=== PATIENT | female | born 1955 | race Caucasian/White ===

== ENCOUNTER 2023-05-05 13:09 | Outpatient (OUT) | payer MEDICARE, OTHER, SELFPAY ==
--- NOTE | 2023-05-05 13:11 | MM_ITS ---
Patient Name: CHRISTY RICHTER MR#: [id number] : 1955 Exam Date: 05/05/2023 Ordering Doctor: DR Akash Buchanan . RADIOLOGY REPORT PROCEDURE: MM TOMOSYNTHESIS SCREENING BI COMPARISON: MG MAMM SCREEN TONY W CAD, 12/18/2016. MG MAMM SCREEN TONY W CAD, 07/31/2020. INDICATIONS: screening Calculator Name NCI Breast Cancer Risk Assessment Tool 5 Year Breast Cancer Risk Not Reported. Lifetime Breast Cancer Risk Not Reported. Personal Breast Cancer No Personal Ovarian Cancer No Treatments None Family Cancers None LOCATION: [facility] BREAST COMPOSITION: Scattered areas fibroglandular density. FINDINGS: DIAGNOSTIC CATEGORY 2--BENIGN FINDING. NO CHANGE FROM COMPARISON. Scattered benign-appearing calcifications are present. Scattered benign-appearing lymph nodes are present. RIGHT BREAST: No significant suspicious finding. LEFT BREAST: No significant suspicious finding. Micro clip marker upper outer quadrant, anterior breast, stable RECOMMENDATIONS: ROUTINE MAMMOGRAM AND CLINICAL EVALUATION IN 12 MONTHS. PLEASE NOTE: A NORMAL MAMMOGRAM DOES NOT EXCLUDE THE POSSIBILITY OF BREAST CANCER. A CLINICALLY SUSPICIOUS PALPABLE LUMP SHOULD BE BIOPSIED. Dictated by: Anselmo Vazquez MD on 05/18/2023 at 14:19 Approved by: Anselmo Vazquez MD on 05/18/2023 at 14:20
== END 2023-05-05 13:10 | disposition home or self-care (01) ==
LOC: MAMMO 13:09
PROVIDERS: PCP Family Medicine; Visit Provider Family Medicine
DX: Z12.31 Encounter for screening mammogram for malignant neoplasm of breast (principal)
CPT/HCPCS: 77063; 77067

== ENCOUNTER 2023-08-14 09:00 | Outpatient (OUT) | payer MEDICARE, OTHER, SELFPAY ==
--- OUTSIDE RECORDS SUMMARY | 2023-08-14 09:17 | XMS_ITS | CCD ---
Author Organization [facility] Care Team Providers Care Leaf Stripper Name Role Phone Re Curtis Primary Care Provider Re Curtis Attending Provider Marilee Choe Unavailable DR RE CURTIS Admitting Unavailable EVER, DR GRIMALDO Primary Care Unavailable EVER, DR GRIMALDO Consulting Unavailable DEBRAY, DR GRIMALDO Attending Unavailable WEST, DR LYNNETTE Chicas Consulting Unavailable EVER, DR GRIMALDO Attending Unavailable EVER, DR GRIMALDO Admitting Unavailable EVER, DR GRIMALDO Primary Care Unavailable EVER, DR GRIMALDO Consulting Unavailable WEST, DR LYNNETTE Chicas Consulting Unavailable EVER, DR GRIMALDO Attending Unavailable HOY, DR GRIMALDO Admitting Unavailable EVER, DR GRIMALDO Primary Care Unavailable EVER, DR GRIMALDO Consulting Unavailable XAVI, DR LEATHA Gonzalez Consulting Unavailable Unavailable Unavailable Unavailable Allergies Allergy Classification Reported Allergen(s) Allergy Type Date of Onset Reaction(s) Facility (1 source) Lisinopril Drug Allergy Unknown [facility] Other Medications Current Medications Medication Drug Class(es) Dates Sig (Normalized) Sig (Original) carvedilol (1 source) alpha-Adrenergic Farshad, beta-Adrenergic Farshad Carvedilol Activ e Problems Active Problems Problem Classification Problem Date Documented Date Episodic/Chronic Abdominal pain (4 sources) Right upper quadrant pain; Translations: [RIGHT UPPER QUADRANT PAIN] Onset: 02-10-2022 Episodic Biliary tract disease (1 source) Obstruction of bile duct; Translations: [OBSTRUCTION OF BILE DUCT] Onset: 02-16-2022 Chronic Diverticulosis and diverticulitis (1 source) Diverticulosis of intestine, part unspecified, without perforation or abscess without bleeding; Translations: [DVRTCLOS PRT UNS NO PERF/ABSC NO BL] Onset: 02-16-2022 Chronic Essential hypertension (1 source) Elevated blood pressure; Translations: [Essential (primary) hypertension] Chronic Hepatitis (1 source) Chronic hepatitis C; Translations: [Chronic viral hepatitis C] Chronic Joint disorders and dislocations; trauma-related (4 sources) Unspecified internal derangement of unspecified knee; Translations: [UNS INTERNAL DERANGEMENT UNS KNEE] Onset: 10-15-2021 Chronic Other nutritional; endocrine; and metabolic disorders (2 sources) Body mass index 25-29 - overweight; Translations: [Body mass index (BMI) 26.0-26.9, adult] Episodic Unclassified (1 source) Past or Other Problems Problem Classification Problem Date Documented Da te Episodic/Chronic Other bone disease and musculoskeletal deformities (1 source) Disorder of bone, unspecified; Translations: [DISORDER OF BONE UNSPECIFIED] Onset: 10-15-2021 Episodic Unclassified (1 source) Exposure to COVID-19 virus Z20.822 Onset: 11-22-2021 Resolved: 11-22-2021 Results Test Name Value Interpretation Reference Range Facility Physician Referralon 024 Physician Referral [id number] #[id number] Normal [facility] CBC AUTO DIFFon 02-10-2022 BASO # 0.0 103/ul Normal 0.0-0.1 [facility] Comment on above: Performed By: #### C BC #### [facility] [address] [place] [address] Dr. Martha Spain Basophils/100 WBC (Bld) 0.3 % Normal 0.2-2.0 [facility] Comment on above: Performed By: #### C BC #### [facility] [address] [address] [address] Martha Spain EO # 0.1 103/ul Normal 0.0-0.7 [facility] Comment on above: Performed By: #### C BC #### [facility] [address] [address] [address] Martha Spain Eosinophils/100 WBC (Bld) 1.1 % Normal 0.9-7.0 [facility] Comment on above: Performed By: #### C BC #### [facility] [address] [address] [address] Martha Spain Erythrocyte distribution width (RBC) [Ratio] 12.8 % Normal 11.0-15.0 [facility] Comment on above: Performed By: #### C BC #### [facility] [address] [place] [address] Dr. Martha Spain Hematocrit (Bld) [Volume fraction] 41.2 % Normal 36.0-48.0 [facility] Comment on above: Performed By: #### C BC #### [facility] [address] [place] [address] Dr. Martha Spain Hemoglobin (Bld) [Mass/Vol] 13.5 g/dL Normal 12.0-16.[address] [facility] Comment on above: Performed By: #### C BC #### [facility] [address] [place] [address] Dr. Martha Spain IG # 0.02 10e3/ul Normal 0.00-0.03 [facility] Comment on above: Performed By: #### C BC #### [facility] [address] [place] [address] Dr. Martha Spain IG % 0.3 % Normal 0.0-0.5 [facility] Comment on above: Performed By: #### C BC #### [facility] [address] [place] [address] Dr. Martha Spain LYMPH # 1.6 103/ul Normal 1.2-3.8 [facility] Comment on above: Performed By: #### C BC #### [facility] [address] [place] [address] Dr. Martha Spain Lymphocytes/100 WBC (Bld) 24.3 % Normal 20.5-60.[address] [facility] Comment on above: Performed By: #### C BC #### [facility] [address] [place] [address] Dr. Martha Spain MANUAL DIFF REQ NO Normal [facility] Comment on above: Performed By: #### C BC #### [facility] [address] [place] [address] Dr. Martha Spain MCH (RBC) [Entitic mass] 29.3 pg Normal 26.7-34.0 [facility] Comment on above: Performed By: #### C BC #### [facility] [address] [place] [address] Dr. Martha Spain MCHC (RBC) [Mass/Vol] 32.8 g/dL Normal 29.9-35.2 [facility] Comment on above: Performed By: #### C BC #### [facility] [address] [place] [address] Dr. Martha Spain MCV (RBC) [Entitic vol] 89.6 fL Normal 81.0-99.[address] [facility] Comment on above: Performed By: #### C BC #### [facility] [address] [place] [address] Dr. Martha Spain MONO # 0.5 103/ul Normal 0.3-0.[address] [facility] Comment on above: Performed By: #### C BC #### [facility] [address] [place] [address] Dr. Martha Spain Monocytes/100 WBC (Bld) 7.4 % Normal 1.7-12.0 [facility] Comment on above: Performed By: #### C BC #### [facility] [address] [place] [address] Dr. Martha Spain NEUT # 4.4 103/ul Normal 1.4-6.[address] [facility] Comment on above: Performed By: #### C BC #### [facility] [address] [place] [address] Dr. Martha Spain Neutrophils/100 WBC (Bld) 66.6 % Normal 43.0-75.[address] [facility] Comment on above: Performed By: #### C BC #### [facility] [address] [place] [address] Dr. Martha Spain Platelet mean volume (Bld) [Entitic vol] 10.8 fL Normal 9.5-13.[address] [facility] Comment on above: Performed By: #### C BC #### [facility] [address] [place] [address] Dr. Martha Spain PLT 158 103/ul Normal 150-450 [facility] Comment on above: Performed By: #### C BC #### [facility] [address] [place], [place] [address] Dr. Martha Spain RBC 4.60 106/ul Normal 4.20-5.40 [facility] Comment on above: Performed By: #### C BC #### [facility] [address] [place], [place] [address] Dr. Martha Spain WBC 6.7 103/ul Normal 4.0-11.0 [facility] Comment on above: Performed By: #### C BC #### [facility] [address] [place], [place] [address] ABD/PELV W CONon 02-11-20 CT ABD/PELV W CON EXAMINATION: CT ABD/PELV W CON, 02/10/2022 8:58 AM EDT HISTORY: Right upper quadrant pain COMPARISON: None. TECHNIQUE: CT scan of the abdomen and pelvis was performed with IV contrast. CT dose reduction technique was used, including Automated Exposure Control. FINDINGS: LUNG BASES: 5 mm nodule left lower lobe axial image 3 LIVER: Diffuse hypoattenuation consistent with hepatic steatosis BILIARY: No dilatation or calcification. PANCREAS: No lesion, fluid collection, ductal dilatation, or atrophy. SPLEEN: No enlargement or focal lesion. ADRENALS: No mass or enlargement. KIDNEYS: No mass, obstruction, or calcification. BOWEL/MESENTERY: Moderate colonic diverticulosis without evidence of acute diverticulitis. Nonobstructive bowel gas pattern. AORTA/VASCULAR: No aortic aneurysm. Mild atherosclerosis RETROPERITONEUM: No mass or adenopathy. LYMPH NODES: No adenopathy. URINARY BLADDER: No visible focal wall thickening, lesion, or calculus. PELVIC ORGANS: No visible mass. Pelvic organs appropriate for patient age. ABDOMINAL WALL: No mass or hernia. BONES: No bony lesion or fracture. OTHER: Negative. IMPRESSION: Diffuse hepatic steatosis No acute intraperitoneal abnormality Moderate colonic diverticulosis without evidence of acute diverticulitis Electronically authenticated by: LYNNETTE LEGGETT Date: 2022-02-10 11:03 Normal [facility] PROF 14(COMP METB)on 022 Albumin [Mass/Vol] 4.0 g/dL Normal 3.4-5.0 [facility] Comment on above: Performed By: #### C MP #### [facility] [address] [address] [address] Martha Spain Albumin/Globulin [Mass ratio] 1.1 {ratio} Normal [facility] Comment on above: Performed By: #### C MP #### [facility] [address] [place] [address] Dr. Martha Spain ALP [Catalytic activity/Vol] 87 U/L Normal 46-116 [facility] Comment on above: Performed By: #### C MP #### [facility] [address] [place] [address] Dr. Martha Spain ALT [Catalytic activity/Vol] 44 U/L Normal 14-59 [facility] Comment on above: Performed By: #### C MP #### [facility] [address] [place] [address] Dr. Martha Spain Anion gap [Moles/Vol] 9.5 mmol/L Normal [facility] Comment on above: Performed By: #### C MP #### [facility] [address] [place] [address] Dr. Martha Spain AST [Catalytic activity/Vol] 30 U/L Normal 15-37 [facility] Comment on above: Performed By: #### C MP #### [facility] [address] [place] [address] Dr. Martha Spain Bilirubin [Mass/Vol] 0.7 mg/dL Normal 0.2-1.0 [facility] Comment on above: Performed By: #### C MP #### [facility] [address] [place] [address] Dr. Martha Spain Calcium [Mass/Vol] 9.2 mg/dL Normal 8.5-10.1 [facility] Comment on above: Performed By: #### C MP #### [facility] [address] [place] [address] Dr. Martha Spain Chloride [Moles/Vol] 101 mmol/L Normal 98-[address] [facility] Comment on above: Performed By: #### C MP #### [facility] [address] [address] [address] Martha Spain CO2 [Moles/Vol] 31.1 mmol/L Normal 21.0-32.0 [facility] Comment on above: Performed By: #### C MP #### [facility] [address] [address] [address] Martha Spain Creatinine [Mass/Vol] 0.84 mg/dL Normal 0.55-1.02 [facility] Comment on above: Performed By: #### C MP #### [facility] [address] [address] [address] Martha Spain EGFR-AF GRENADIAN >60 Normal >=60 [facility] Comment on above: Performed By: #### C MP #### [facility] [address] [place] [address] Dr. Martha Spain EGFR-NON AF GRENADIAN >60 Normal >=60 [facility] Comment on above: Performed By: #### C MP #### [facility] [address] [address] [address] Martha Spain Globulin (S) [Mass/Vol] 3.8 g/dL Normal [facility] Comment on above: Performed By: #### C MP #### [facility] [address] [place] [address] Dr. Martha Spain Glucose [Mass/Vol] 110 mg/dL Critically high 74-[address] [facility] Comment on above: Performed By: #### C MP #### [facility] [address] [place] [address] Dr. Martha Spain Potassium [Moles/Vol] 4.6 mmol/L Normal 3.5-5.1 [facility] Comment on above: Performed By: #### C MP #### [facility] [address] [place] [address] Dr. Martha Spain Protein [Mass/Vol] 7.8 g/dL Normal 6.4-8.2 [facility] Comment on above: Performed By: #### C MP #### [facility] [address] [place] [address] Dr. Martha Spain Sodium [Moles/Vol] 137 mmol/L Normal 136-145 [facility] Comment on above: Performed By: #### C MP #### [facility] [address] [place], [place] [address] Dr. Martha Spain Urea nitrogen [Mass/Vol] 14.0 mg/dL Normal 7.0-18.0 [facility] Comment on above: Performed By: #### C MP #### [facility] [address] [place], [place] [address] Dr. Martha Spain Urea nitrogen/Creatinin e [Mass ratio] 16.7 mg/mg Normal [facility] Comment on above: Performed By: #### C MP #### [facility] [address] [place], [place] [address] Dr. Martha Spain COVID Quick Testingon 11-22 Result Negative [facility] Other MRI KNEE LT WO CONon MRI KNEE LT WO CON EXAMINATION: MRI KNEE LT WO CON HISTORY: Derangement of knee COMPARISON: No relevant comparison available. TECHNIQUE: A complete multi-planar MRI was performed. FINDINGS: MEDIAL COMPARTMENT MEDIAL MENISCUS: Thinned and partially extruded body and anterior horn. Diffuse increase in signal likely myxoid degeneration without definitive tear CARTILAGE: Diffuse grade 3 and grade 4 chondromalacia with subchondral edema. 4.2 mm osteochondral defect in the medial femoral condyle best seen on coronal image 16 BONES: Mild osteoarthritis with marginal osteophyte formation MCL AND MEDIAL CAPSULE: Normal medial collateral ligament and medial capsule. LATERAL COMPARTMENT LATERAL MENISCUS: No visible tear or significant degeneration. CARTILAGE: No visible defect. BONES: No marrow pathology, fracture, or significant arthropathy. LCL/POSTEROLAT COMPLEX: Normal lateral collateral ligament, fascicles, lateral capsule and ligaments. ANTERIOR COMPARTMENT PATELLA: No acute fracture CARTILAGE: Grade III chondromalacia of the lateral patellar facet with associated subchondral edema TENDONS: Normal. EFFUSION: None. No synovitis or loose bodies. ACL: Increased signal in the distal tibial insertion suggesting strain with some mild associated bone edema PCL: Normal appearing ligament. MENISCOFEMORAL: Normal meniscofemoral ligaments. OTHER: Negative. 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 Electronically authenticated by: LYNNETTE LEGGETT Date: 2021-10-15 10:38 Normal [facility] MM screening mammo BI w/CADo n 07-31-2020 MM screening mammo BI w/CAD [facility] [place] [address] [place] [id number] Mammography Report Signed Patient: Reva Richter MR#: [id number] : 1955 Acct:[id number] Age/Sex: 65 / F ADM Date: 07/31/20 Loc: [place] Room: Type: [facility] Attending Dr: Re Curtis MD Ordering Provider: Re Curtis MD Date of Service: 07/31/20 MM/MM screening mammo BI w/CAD: SCREENING Copies to: Re Curtis MD Bilateral Screening Full Field digital mammogram with 3-D imaging. Full field digital CC and MLO imaging performed. CAD utilized. COMPARISON: 12/18/16 HISTORY:Screening FINDINGS: Scattered fibroglandular densities of the breast parenchyma identified. No developing architectural distortion, developing focal breast asymmetry or developing malignant calcifications identified. Scattered benign calcifications identified. LEFT Biopsy marking clip is present. MM/MM screening mammo BI w/CAD IMPRESSION:No mammographic evidence of malignancy. Routine follow-up recommended in one year. RESULT CODE: 2 Benign Findings(s) DENSITY CODE: 2 (approximately 25-50% glandular) FOLLOW UP: 1YR THE FALSE-NEGATIVE RATE OF MAMMOGRAPHY IS APPROXIMATELY 10%. IMAGING OF A PALPABLE ABNORMALITY MUST BE BASED ON CLINICAL GROUNDS. PATIENT WAS ENTERED INTO A REMINDER SYSTEM WITH A TARGET DUE DATE FOR THE NEXT MAMMOGRAM. Impression dictated by: Varghese Copeland M.D.07/31/2020 12:01 PM Dictation Location: [facility] Transcribed By: [facility] 07/31/20 1201 Dictated By: Varghese Copeland DO 07/31/20 1157 Signed By: 07/31/20 1201 [facility] Vital Signs Date Time Vital Sign Value Performing Clinician Facility 11-22-2021 10:35-0400 Body height 165.1 cm [facility] Other [facility] Other 11-22-2021 10:35-0400 Body mass index (BMI) [Ratio] 25.79 kg/m2 Marilee Choe Other [facility] Other 11-22-2021 10:35-0400 Body temperature 96 [degF] Marilee Choe Other [facility] Other 11-22-2021 10:35-0400 Body weight 70.31 kg Marilee Choe Other [facility] Other 11-22-2021 10:35-0400 Respiratory rate 18 /min Marilee Choe Other [facility] Other 11-22-2021 10:35-0400 SaO2% (BldA) [Mass fraction] 97 % Marilee Choe Other [facility] Other Encounters Encounter Date Encounter Type Care Provider Facility Start: 02-10-2022 End: 02-11-[address] RE CURTIS Facility:[facility] Start: 11-22-2021 End: 11-22-2021 ambulatory Marilee Choe Other [facility] Other Start: 11-22-2021 Office outpatient ne w 20 minutes Marilee Choe [facility] Start: 10-15-2021 End: 10-16-[address] RE CURTIS Facility:[facility] Start: 10-10-2021 End: 10-11-[address] RE CURTIS Facility:[facility] Start: 07-31-2020 End: 07-31-2020 Patient encounter procedure Re Curtis -[place] Procedures Date Procedure Procedure Detail Performing Clinician Start: 07-31-2020 Screening mammograph y of bilateral breasts Re Curtis Immunizations Immunization Date Immunization Notes Care Provider Mike donaldson 06-19-2016 hepatitis B vaccine, adult dosage Marilee Choe Other [facility] Other 06-11-2016 hepatitis A vaccine, pediatric/adolescent dosage, 2 dose schedule Marilee Choe Other [facility] Other Payers Date Payer Category Payer Medicare [id number] 2.1 [id number] 1959 Medicare [id number] 1955 Unknown [id number] 1955 Unknown [id number] [id number] [id number] 1955 Unknown [id number] [id number] Self-pay Self Pay [id number] Unknown Self Pay [id number] Social History Date Type Detail Facility Tobacco smoking status NHIS Unknown if ever smoked [facility] Start: 1955 Sex Assigned At Female [facility] Sex Assigned At Sex Assigned At Bir th [facility] Other Goals Date Patient Goal Desired Activity /State Evaluation note 11-22-2021 Note Date & Type Note Facility 11-22-2021 Evaluation note Encounter Date Diagnosis Assessment Notes Nov, Exposure to COVID-19 virus (ICD-10 - Z20.822) Rapid COVID test results are negative. Patient is vaccinated for COVID19. Patient should follow up if new/worsening symptoms for further eval and possible re-testing. Advised patient to seek immediate evaluation via ER if warning symptoms, including but not limited to intracable fevers, s/s of respir distress, s/s of dehydration or severe abdominal pain. [facility] Other Clinical Note 06-23-2022 Note Date & Type Note Facility 10-10-2021 Note PROCEDURE: XR KNEE L T 4V or > HISTORY: Derangement of knee ; chronic lateral in posterior left knee pain since falling 5 months ago COMPARISON: None. FINDINGS: BONES:Serpiginous sclerotic density within the distal femoral diaphysis suspected to represent an enchondroma. Small sclerotic focus adjacent the weightbearing articular surface of the medial femoral condyle, possible osteochondral defect. No fracture or dislocation. SOFT TISSUES:No visible soft tissue swelling. EFFUSION:None visible. OTHER: Negative. IMPRESSION: 1. No acute bone abnormality. 2. Suspect small osteochondral defect involving weightbearing articular surface of medial femoral condyle. Consider MRI for further evaluation. 3. Nonspecific sclerotic lesion within distal femoral diaphysis most likely an incidental enchondroma. Electronically authenticated by: LEATHA HURLEY Date: 2021-10-10 11:[address] [facility] History general Narrative - Reported Note Date & Type Note Facility History general Narrative - Reported Type Medical History Hepatitis C from [place] blood transfusion Medical History Hypertension Surgical History cyst right hand-calcium deposit 1984 Hospitalization History see above [facility] Other Advance Directives No Advanced Directives Records Found Advance Directive Response Recorded Date/ Time Advance Directives No December 12:21pm Chief Complaint and Reason for Visit Chief Complaint Screening Assessments No Assessments Information Available Summary Purpose Family History No Family History Records FoundNo Family History Records FoundNo Family History Records Found Additional Source Comments INFORMATION SOURCE (unrecogn ized section and content) DATE CREATED AUTHOR 08/11/2020 [facility] DATE CREATED AUTHOR AUTHOR'S ORGANIZ ATION 02/16/2022 [facility] DATE CREATED AUTHOR AUTHOR'S ORGANIZ ATION 08/10/2023 [facility] REASON FOR VISIT (unrecogniz ed section and content) NANDO VAZQUEZ, H/Harris, MICKY EXPSO URE FOR RECORDS PERTAINING TO PATIENTS WHO ARE OR HAVE BEEN ENROLLED IN A CHEMICAL DEPENDENCY/SUBSTANCEABUSE PROGRAM, SOME INFORMATION MAY BE OMITTED. This clinical summary was aggregated from multiple sources. Caution should be exercised in using it in the provision of clinical care. This summary normalizes information from multiple sources, and as a consequence, information in this document may materially change the coding, format and clinical context of patient data. In addition, data may be omitted in some cases. CLINICAL DECISIONS SHOULD BE BASED ON THE PRIMARY CLINICAL RECORDS. [facility] [employer] [facility]. provides no warranty or guarantee of the accuracy or completeness of information in this document."
[2023-08-14 09:27] LABS: Basophils Percent Auto 0.2 % (0.2-2.0); Eosinophils Absolute Auto 0.1 10^3/uL (0.0-0.7); Eosinophils Percent Auto 1.4 % (0.9-7.0); Hematocrit 40.2 % (36.0-48.0); Hemoglobin 13.2 g/dL (12.0-16.0); Lymphocytes Absolute Auto 1.5 10^3/uL (1.2-3.8); Lymphocytes Percent Auto 29.3 % (20.5-60.0); Mean Corpuscular HGB Conc 32.8 g/dL (29.9-35.2); Mean Corpuscular Hemoglobin 29.7 pg (26.7-34.0); Mean Corpuscular Volume 90.5 fL (81.0-99.0); Mean Platelet Volume 11.1 fL (9.5-13.5); Monocytes Absolute Auto 0.4 10^3/uL (0.3-0.8); Monocytes Percent Auto 7.9 % (1.7-12.0); Neutrophils Percent Auto 61.2 % (43.0-75.0); Platelet Count 151 10^3/uL (150-450); Red Blood Count 4.44 10^6/uL (4.20-5.40); Red Cell Distribution Width 12.7 % (11.0-15.0)
[2023-08-14 09:30] LABS: Estimated Average Glucose 103 mg/dL; Glycohemoglobin A1C 5.2 % (4.5-6.2)
[2023-08-14 12:34] LABS: Alanine Aminotransferase 14 U/L (14-59); Albumin Level 3.8 g/dL (3.4-5.0); Alkaline Phosphatase 97 U/L (46-116); Anion Gap 13.9; Aspartate Amino Transferase 13 U/L (15-37); BUN Creatinine Ratio 24.7; Bilirubin Total 0.7 mg/dL (0.2-1.0); Calcium 8.8 mg/dL (8.5-10.1); Carbon Dioxide 26.6 mmol/L (21.0-32.0); Chloride 104 mmol/L (98-107); Chol HDL Ratio 2.2; Cholesterol 177 mg/dL (<=200); Estimated GFR (African America >60 (>=60); Estimated GFR (Non-African Ame 57 (>=60); Free T3 2.91 pg/mL (2.18-3.98); Globulin 3.9 g/dL; Glucose 99 mg/dL (74-106); HDL Cholesterol 81 mg/dL (40-60); Potassium 4.5 mmol/L (3.5-5.1); Sodium 140 mmol/L (136-145); Thyroid Stimulating Hormone 1.865 uIU/mL (0.358-3.740); Total Protein 7.7 g/dL (6.4-8.2); Triglycerides 48 mg/dL (<=150); VLDL CHOLESTEROL 9.6 mg/dL
== END 2023-08-14 09:01 | disposition home or self-care (01) ==
PROVIDERS: PCP Family Medicine; Visit Provider Family Medicine
DX: E78.5 Hyperlipidemia, unspecified (principal); I10 Essential (primary) hypertension; L30.9 Dermatitis, unspecified; Z86.19 Personal history of other infectious and parasitic diseases; R73.09 Other abnormal glucose; D64.9 Anemia, unspecified; E55.9 Vitamin D deficiency, unspecified
CPT/HCPCS: 36415; 80053; 80061; 82306; 83036; 83540; 84436; 84443; 84481; 85025

== ENCOUNTER 2024-09-06 08:06 | Outpatient (OUT) | payer MEDICARE, OTHER, SELFPAY ==
--- OUTSIDE RECORDS SUMMARY | 2024-09-06 08:15 | XMS_ITS | CCD ---
Author Organization [facility] Care Team Providers Care Crime Scene Technician Name Role Phone Re Buchanan Primary Care Provider Re Buchanan Attending Provider Marilee Choe Unavailable EVER, DR GRIMALDO Admitting Unavailable HOY, DR GRIMALDO Primary Care Unavailable HOY, DR GRIMALDO Consulting Unavailable HOY, DR GRIMALDO Attending Unavailable WEST, DR LYNNETTE Chicas Consulting Unavailable HOY, DR GRIMALDO Attending Unavailable HOY, DR GRIMALDO Admitting Unavailable HOY, DR GRIMALDO Primary Care Unavailable HOY, DR GRIMALDO Consulting Unavailable WEST, DR LYNNETTE Chicas Consulting Unavailable HOY, DR GRIMALDO Attending Unavailable HOY, DR GRIMALDO Admitting Unavailable HOY, DR GRIMALDO Primary Care Unavailable HOY, DR GRIMALDO Consulting Unavailable ZIEBER, DR LEATHA Gonzalez Consulting Unavailable Re Buchanan Primary Care Physician HUGO, Damaso Gonzalez Attending Unavailable NILL, Damaso Gonzalez Attending Unavailable NILL, Damaso Gonzalez Attending Unavailable HoyRe Referring Unavailable NILL, Damaso Gonzalez Admitting Unavailable NILL, Damaso Gonzalez Attending Unavailable NILL, Damaso Gonzalez Attending Unavailable Unavailable Unavailable Unavailable Allergies Allergy Classification Reported Allergen(s) Allergy Type Date of Onset Reaction(s) Facility (1 source) Lisinopril Drug Allergy Unknown [facility] Other (5 sources) Metoprolol; Translations: [metoprolol] Drug Allergy Nausea (finding) [facility] (1 source) No Known Medication Allergies; Translations: [No Known Medication Allergies] Propensity to adverse reactions (disorder) [facility] Medications Current Medications Medication Drug Class(es) Dates Sig (Normalized) Sig (Original) carvedilol 12.5 mg oral tablet (5 sources) alpha-Adrenergic Farshad, beta-Adrenergic Farshad Start: 08-24-2023 take 1 tablet by mouth twice daily carvedilol 12.5 mg Tab 12.5 mg = 1 tab(s), Oral, BID, Refills(s) 0 Start Date: 08/24/23 Status: Ordered Carvedilol Activ e Problems Active Problems Problem Classification Problem Date Documented Date Episodic/Chronic Abdominal pain (4 sources) Right upper quadrant pain; Translations: [RIGHT UPPER QUADRANT PAIN] Onset: 02-10-2022 Episodic Allergic reactions (4 sources) Eczema 08-21-2023 Episodic Biliary tract disease (1 source) Obstruction of bile duct; Translations: [OBSTRUCTION OF BILE DUCT] Onset: 02-16-2022 Chronic Diverticulosis and diverticulitis (5 sources) Diverticulosis of intestine, part unspecified, without perforation or abscess without bleeding; Translations: [Diverticular disease of colon] Onset: 02-16-2022 08-21-2023 Chronic Essential hypertension (5 sources) Elevated blood pressure; Translations: [Essential (primary) hypertension] 08-06-2020 Chronic Hepatitis (5 sources) Chronic hepatitis C; Translations: [Chronic viral hepatitis C] 01-18-2021 Chronic Joint disorders and dislocations; trauma-related (4 sources) Unspecified internal derangement of unspecified knee; Translations: [UNS INTERNAL DERANGEMENT UNS KNEE] Onset: 10-15-2021 Chronic Other and unspecified benign neoplasm (4 sources) Benign neoplasm of soft tissue 01-18-2021 Episodic Other inflammatory condition of skin (4 sources) Itching of skin 01-18-2021 Episodic Other nutritional; endocrine; and metabolic disorders (2 sources) Body mass index 25-29 - overweight; Translations: [Body mass index (BMI) 26.0-26.9, adult] Episodic Other nutritional; endocrine; and metabolic disorders (4 sources) Overweight 08-21-2023 Episodic Other nutritional; endocrine; and metabolic disorders (4 sources) Overweight in adulthood with body mass index of 25 or more but less than 30 08-24-2023 Episodic Other skin disorders (3 sources) Hypertrophic condition of skin; Translations: [Other hypertrophic disorders of the skin] Onset: 08-24-2023 Episodic Other skin disorders (6 sources) Actinic keratosis; Translations: [Actinic keratosis] Onset: 08-24-2023 Episodic Other skin disorders (4 sources) Skin lesion 02-03-2021 Episodic Other skin disorders (4 sources) Skin tag 08-24-2023 Episodic Residual codes; unclassified (4 sources) Family history of cancer of colon 08-09-2020 Episodic Unclassified (1 source) Unclassified (4 sources) Seborrheic keratosis 02-03-2021 Past or Other Problems Problem Classification Problem Date Documented Da te Episodic/Chronic Other bone disease and musculoskeletal deformities (1 source) Disorder of bone, unspecified; Translations: [DISORDER OF BONE UNSPECIFIED] Onset: 10-15-2021 Episodic Unclassified (1 source) Exposure to COVID-19 virus Z20.822 Onset: 11-22-2021 Resolved: 11-22-2021 Results Test Name Value Interpretation Reference Range Facility General Surgery Office/Clini c Noteon 12-15-2023 General Surgery Office/Clinic Note General Surgery Office/Clinic Note Chief Complaint follow up in-office excisional biopsy HPI Staff 7 day post in-office excisional biopsy left cheek lesion. History of Present Illness 1 week s/p excision lesion left cheek and skin tag left mormonism; pathology on cheek lesion consistent with skin [...] Recorded SARS-CoV-2 (COVID-19) mRNA-1273 vaccine 07/03/2020 Recorded Normal [facility] Comment on above: Result Comment: Elec tronically Signed By: HUGO SAXENA, Damaso Gonzalez\.br\Date and Time Signed: 12/15/23 14:02 EDT Surgical Pathology Reporton 12-11-2023 Surgical Pathology Report [address] [place] [address]- Surgical Pathology Report Collected Date/Time: 12/08/2023 14:33 [...] cm in greatest dimension, totally submitted. (MG) MSG:[facility] Microscopic Description Microscopic examination performed unless gross only specified. Normal [facility] Comment on above: Performed By: #### [id number] #### [facility] [address] [place] [address] Ambulatory Visit Summaryon 0 12-08-2023 Ambulatory Visit Summary Ambulatory Visit Summary REVA RICHTER :1955 Visit Date:12/08/2023 Ambulatory Visit Instructions Your Care Team Attending Physician - HUGO SAXENA, Damaso Gonzalez Primary Care Physician - Re Buchanan MD This Is Your Medications List carvedilol (carvedilol 12.5 mg Tab) Procedures Performed Colonoscopy (09/26/2020). What to do next Scheduled Follow-Up Appointments Thursday 2:00 PM EDT With: HUGO SAXENA, Damaso Gonzalez Where: [address], [address], [place] [id number]- Medications What How Much When Instructions Unchanged [...] you for choosing us for your care. Normal [facility] General Surgery Office/Clini c Noteon 12-08-2023 General Surgery Office/Clinic Note General Surgery Office/Clinic Note Chief Complaint in-office excisional biopsies HPI [...] Ordered: Exc Face-Mm B9+Ligia 0.5 < Cm [id number] Office Visit No Charge Pathology Tissue Exam Remove skin tags 15 or less 74997 2. Skin tag (L91.8: Other hypertrophic disorders [...] Recorded SARS-CoV-2 (COVID-19) mRNA-1273 vaccine 07/03/2020 Recorded Normal [facility] Comment on above: Result Comment: Elec tronically Signed By: HUGO SAXENA, Damaso Gonzalez\.br\Date and Time Signed: 12/08/23 14:18 EDT Ambulatory Visit Summaryon 0 08-24-2023 Ambulatory Visit Summary REVA RICHTER :1955 Visit Date:08/24/2023 Ambulatory Visit Instructions Your Care Team Attending Physician - HUGO SAXENA, Damaso Gonzalez Primary Care Physician - Re Buchanan MD Referring Physician - Re Buchanan MD This Is Your Medications List carvedilol (carvedilol 12.5 mg Tab) Procedures Performed Colonoscopy (09/26/2020). Discharge Vitals Heart Rate (Peripheral) 61 Respiratory Rate 16 Blood Pressure 197/107 Height 165 cm Height 65 in Weight 74.4 kg Weight 163.68 lb BMI 27.33 Medications What How Much When Instructions Unchanged carvedilol (carvedilol 12.5 mg Tab) 1 Tablets By Mouth 2 times a day Allergies Toprol-XL (Nausea) Problems Ongoing - Any problem that you are currently receiving treatment for. BMI 26.0-26.9,adult Diverticular disease of colon Eczema Family history of colon cancer requiring screening colonoscopy Granuloma of skin Hepatitis C, chronic Hypertension Keratosis, seborrheic Nevus Overweight Pruritus Patient Survey You may receive a survey via text or e-mail asking about your office visit. Please share your experience with us by completing your survey. We appreciate your feedback and thank you for choosing us for your care. Normal [facility] Physician Referralon 024 Physician Referral [phone] [id number] #1.00TIFF Normal [facility] Physician Referralon 024 Physician Referral [id number] #1.00TIFF Normal [facility] CBC AUTO DIFFon 02-10-2022 BASO # 0.0 103/ul Normal 0.0-0.1 [facility] Comment on above: Performed By: #### C BC #### [facility] [address] [place] [address] Dr. Martha Spain Basophils/100 WBC (Bld) 0.3 % Normal 0.2-2.0 [facility] Comment on above: Performed By: #### C BC #### [facility] [address] [place] [address] Dr. Martha Spain EO # 0.1 103/ul Normal 0.0-0.7 [facility] Comment on above: Performed By: #### C BC #### [facility] [address] [place] [address] Dr. Martha Spain Eosinophils/100 WBC (Bld) 1.1 % Normal 0.9-7.0 [facility] Comment on above: Performed By: #### C BC #### [facility] [address] [place] [address] Dr. Martha Spain Erythrocyte distribution width (RBC) [Ratio] 12.8 % Normal 11.0-15.0 [facility] Comment on above: Performed By: #### C BC #### [facility] [address] [place] [address] Dr. Martha Spain Hematocrit (Bld) [Volume fraction] 41.2 % Normal 36.0-48.0 [facility] Comment on above: Performed By: #### C BC #### [facility] [address] [place] [address] Dr. Martha Spain Hemoglobin (Bld) [Mass/Vol] 13.5 g/dL Normal 12.0-16.0 [facility] Comment on above: Performed By: #### C BC #### [facility] [address] [place] [address] Dr. Martha Spain IG # 0.02 10e3/ul Normal 0.00-0.03 [facility] Comment on above: Performed By: #### C BC #### [facility] [address] [place] [address] Dr. Martha Spain IG % 0.3 % Normal 0.0-0.5 [facility] Comment on above: Performed By: #### C BC #### [facility] [address] [place] [address] Dr. Martha Spain LYMPH # 1.6 103/ul Normal 1.2-3.8 [facility] Comment on above: Performed By: #### C BC #### [facility] [address] [place] [address] Dr. Martha Spain Lymphocytes/100 WBC (Bld) 24.3 % Normal 20.5-60.0 [facility] Comment on above: Performed By: #### C BC #### [facility] [address] [place] [address] Dr. Martha Spain MANUAL DIFF REQ NO Normal [facility] Comment on above: Performed By: #### C BC #### [facility] [address] [place] [address] Dr. Martha Spain MCH (RBC) [Entitic mass] 29.3 pg Normal 26.7-34.0 [facility] Comment on above: Performed By: #### C BC #### [facility] [address] [place] [address] [address] Martha Spain MCHC (RBC) [Mass/Vol] 32.8 g/dL Normal 29.9-35.2 [facility] Comment on above: Performed By: #### C BC #### [facility] [address] [place] [address] [address] Martha Spain MCV (RBC) [Entitic vol] 89.6 fL Normal 81.0-99.0 [facility] Comment on above: Performed By: #### C BC #### [facility] [address] [place] [address] Dr. Martha Spain MONO # 0.5 103/ul Normal 0.3-0.8 [facility] Comment on above: Performed By: #### C BC #### [facility] [address] [place] [address] Dr. Martha Spain Monocytes/100 WBC (Bld) 7.4 % Normal 1.7-12.0 [facility] Comment on above: Performed By: #### C BC #### [facility] [address] [place] [address] Dr. Martha Spain NEUT # 4.4 103/ul Normal 1.4-6.5 [facility] Comment on above: Performed By: #### C BC #### [facility] [address] [place] [address] Dr. Martha Spain Neutrophils/100 WBC (Bld) 66.6 % Normal 43.0-75.0 [facility] Comment on above: Performed By: #### C BC #### [facility] [address] [place] [address] [address] Martha Spain Platelet mean volume (Bld) [Entitic vol] 10.8 fL Normal 9.5-13.5 [facility] Comment on above: Performed By: #### C BC #### [facility] [address] [place] [address] [address] Martha Spain PLT 158 103/ul Normal 150-450 [facility] Comment on above: Performed By: #### C BC #### [facility] [address] [place], [place] [address] Dr. Martha Spain RBC 4.60 106/ul Normal 4.20-5.40 [facility] Comment on above: Performed By: #### C BC #### [facility] [address] [place], [place] [address] Dr. Martha Spain WBC 6.7 103/ul Normal 4.0-11.0 [facility] Comment on above: Performed By: #### C BC #### [facility] [address] [place], [place] [address] ABD/PELV W CONon 02-11-[address] ABD/PELV W CON EXAMINATION: CT ABD/PELV [...] LYNNETTE LEGGETT Date: 2022-02-10 11:03 Normal [facility] PROF 14(COMP METB)on 02-10- 022 Albumin [Mass/Vol] 4.0 g/dL Normal 3.4-5.0 [facility] Comment on above: Performed By: #### C MP #### [facility] [address] [place] [address] Dr. Martha Spain Albumin/Globulin [Mass ratio] 1.1 {ratio} Normal [facility] Comment on above: Performed By: #### C MP #### [facility] [address] [place] [address] [address] Martha Spain ALP [Catalytic activity/Vol] 87 U/L Normal 46-116 [facility] Comment on above: Performed By: #### C MP #### [facility] [address] [place] [address] Dr. Martha Spain ALT [Catalytic activity/Vol] 44 U/L Normal 14-59 [facility] Comment on above: Performed By: #### C MP #### [facility] [address] [place] [address] Dr. Martha Spain Anion gap [Moles/Vol] 9.5 mmol/L Normal [facility] Comment on above: Performed By: #### C MP #### [facility] [address] [place] [address] Dr. Martha Spain AST [Catalytic activity/Vol] 30 U/L Normal 15-37 [facility] Comment on above: Performed By: #### C MP #### [facility] [address] [place] [address] Dr. Martha Spain Bilirubin [Mass/Vol] 0.7 mg/dL Normal 0.2-1.0 [facility] Comment on above: Performed By: #### C MP #### [facility] [address] [place] [address] Dr. Martha Spain Calcium [Mass/Vol] 9.2 mg/dL Normal 8.5-10.1 [facility] Comment on above: Performed By: #### C MP #### [facility] [address] [place] [address] Dr. Martha Spain Chloride [Moles/Vol] 101 mmol/L Normal 98-107 [facility] Comment on above: Performed By: #### C MP #### [facility] [address] [place] [address] Dr. Martha Spain CO2 [Moles/Vol] 31.1 mmol/L Normal 21.0-32.0 [facility] Comment on above: Performed By: #### C MP #### [facility] [address] [place] [address] [address] Martha Spain Creatinine [Mass/Vol] 0.84 mg/dL Normal 0.55-1.02 [facility] Comment on above: Performed By: #### C MP #### [facility] [address] [place] [address] [address] Martha Spain EGFR-AF SPANISH >60 Normal >=60 [facility] Comment on above: Performed By: #### C MP #### [facility] [address] [place] [address] [address] Martha Spain EGFR-NON AF SPANISH >60 Normal >=60 [facility] Comment on above: Performed By: #### C MP #### [facility] [address] [place] [address] [address] Martha Spain Globulin (S) [Mass/Vol] 3.8 g/dL Normal [facility] Comment on above: Performed By: #### C MP #### [facility] [address] [place] [address] [address] Martha Spain Glucose [Mass/Vol] 110 mg/dL Critically high 74-106 [facility] Comment on above: Performed By: #### C MP #### [facility] [address] [place] [address] Dr. Martha Spain Potassium [Moles/Vol] 4.6 mmol/L Normal 3.5-5.1 [facility] Comment on above: Performed By: #### C MP #### [facility] [address] [place] [address] [address] Martha Spain Protein [Mass/Vol] 7.8 g/dL Normal 6.4-8.2 [facility] Comment on above: Performed By: #### C MP #### [facility] [address] [place] [address] Dr. Martha Spain Sodium [Moles/Vol] 137 mmol/L Normal 136-145 [facility] Comment on above: Performed By: #### C MP #### [facility] [address] [place], [place] [address] Dr. Martha Spain Urea nitrogen [Mass/Vol] 14.0 mg/dL Normal 7.0-18.0 [facility] Comment on above: Performed By: #### C MP #### [facility] [address] [place], [place] [address] Dr. Martha Spain Urea nitrogen/Creatinin e [Mass ratio] 16.7 mg/mg Normal [facility] Comment on above: Performed By: #### C MP #### [facility] [address] [place], [place] [address] Dr. Martha Spain COVID Quick Testingon 2021 Result Negative [facility] Other MRI KNEE LT WO CONon MRI [...] by: LYNNETTE LEGGETT Date: 2021-10-15 10:38 Normal [facility] MM screening mammo BI w/CADo n 07-31-2020 MM screening mammo BI w/CAD [facility] [place] [address] [place], [place] [id number] Mammography Report Signed Patient: Reva Richter MR#: [id number] : 1955 Acct:[id number] Age/Sex: 65 / F ADM Date: 07/31/20 Loc: [place] Room: Type: [facility] Attending Dr: Re Buchanan MD Ordering Provider: Re Buchanan MD Date of Service: 07/31/20 MM/MM screening mammo BI w/CAD: SCREENING Copies to: Re Buchanan MD Bilateral Screening Full Field digital mammogram [...] Varghese Copeland M.D.07/31/2020 12:01 PM Dictation Location: [facility] Transcribed By: [facility] 07/31/20 1201 Dictated By: Varghese Copeland DO 07/31/20 1157 Signed By: 07/31/20 1201 [facility] Vital Signs Date Time Vital Sign Value Performing Clinician Facility 08-24-2023 15:34-0400 Diastolic blood pressure 101 mm[Hg] Damaso GARCIAL [facility] [place] 08-24-2023 15:34-0400 Heart rate 65 /min Damaso NILL [facility] [place] 08-24-2023 15:34-0400 Mean blood pressure 128 mm[Hg] Damaos NILL [facility] [place] 08-24-2023 15:34-0400 Systolic blood pressure 181 mm[Hg] Damaso NILL [facility] 08-24-2023 15:09-0400 Blood Pressure Location Damaso NILL [facility] 08-24-2023 15:09-0400 Diastolic blood pressure 107 mm[Hg] Damaso NILL [facility] 08-24-2023 15:09-0400 Heart rate 61 /min Damaso NILL [facility] 08-24-2023 15:09-0400 Respiratory rate 16 /min Damaso NILL [facility] 08-24-2023 15:09-0400 Systolic blood pressure 197 mm[Hg] Damaso NILL [facility] 11-22-2021 10:35-0400 Body height 165.1 cm Marilee Choe Other [facility] [place] Other 11-22-2021 10:35-0400 Body mass index (BMI) [Ratio] 25.79 kg/m2 Marilee Choe Other [facility] Other 11-22-2021 10:35-0400 Body temperature 96 [degF] Marilee Choe Other [facility] Other 11-22-2021 10:35-0400 Body weight 70.31 kg Marilee Choe Other [facility] Other 11-22-2021 10:35-0400 Respiratory rate 18 /min Marilee Choe Other [facility] Other 11-22-2021 10:35-0400 SaO2% (BldA) [Mass fraction] 97 % Marilee Choe Other [facility] Other Encounters Encounter Date Encounter Type Care Provider Facility Start: 12-15-2023 End: 12-15-2023 ambulatory Damaso R NILL Facility: [facility] Start: 12-15-2023 End: 12-15-2023 Patient encounter procedure [facility] Start: 12-08-2023 End: 12-08-2023 ambulatory Damaso R NILL [place] Start: 12-08-2023 End: 12-08-2023 Lab Drop off Damaso R NILL [facility] Start: 12-08-2023 End: 12-08-2023 ambulatory Damaso R NILL Facility: [facility] Start: 12-08-2023 End: 12-08-2023 Patient encounter procedure Damaso R NILL [facility] Start: 09-08-2023 ambulatory Damaso R NILL Facility : [facility] Start: 08-24-2023 End: 08-24-2023 ambulatory Damaso R NILL Facility: [place] Start: 08-24-2023 End: 08-24-2023 Patient encounter procedure Damaso R NILL [facility] [place] Start: 08-20-2023 ambulatory Damaso NILL Facility:[facility] Start: 02-10-2022 End: 02-11-[address] RE BUCHANAN Facility:[facility] Start: 11-22-2021 End: 11-22-2021 ambulatory Marilee Choe Other [facility] Other Start: 11-22-2021 Office outpatient ne w 20 minutes Marilee Choe [facility] Start: 10-15-2021 End: 10-16-[address] RE BUCHANAN Facility:[facility] Start: 10-10-2021 End: 10-11-[address] RE BUCHANAN Facility:[facility] Start: 07-31-2020 End: 07-31-2020 Patient encounter procedure Re Buchanan [facility] Procedures Date Procedure Procedure Detail Performing Clinician Start: 09-26-2020 Colonoscopy Damaso DE LA FUENTE Start: 07-31-2020 Screening mammograph y of bilateral breasts Re Buchanan Immunizations Immunization Date Immunization Notes Care Provider [facility] 04-10-2021 SARS-CoV-2 (COVID-19 ) mRNA-1273 vaccine Damaso ARIAS [facility] 08-03-2020 SARS-CoV-2 (COVID-19 ) mRNA-1273 vaccine Damaso ARIAS [facility] 07-03-2020 SARS-CoV-2 (COVID-19 ) mRNA-1273 vaccine Damaso ARIAS [facility] 06-19-2016 hepatitis B vaccine, adult dosage Marilee Choe Other [facility] Other 06-11-2016 hepatitis A vaccine, pediatric/adolescent dosage, 2 dose schedule Marilee Choe Other [facility] Other Payers Date Payer Category Payer Medicare [id number] 2.1 [id number] 1959 Medicare [id number] [id number]. [id number] 1955 Unknown [id number] 2.16.84 [id number] 1955 Unknown [id number] 2.16.84 [id number] 1955 Unknown [id number] 2.16.84 [id number] 1955 Unknown [id number] 2.16.8 [id number] 1955 Unknown [id number] 2.16.8 [id number] 1955 Unknown [id number] 2.16.8 [id number] 1955 Unknown [id number] 2.16.8 [id number] 1955 Unknown [id number] 2.16.8 [id number] Self-pay Self Pay [id number] Unknown Self Pay [id number] Social History Date Type Detail Facility Tobacco [facility] stat [email or web address]IS Unknown if ever smoked [facility] Start: 1955 Sex Assigned At Female F [facility] Sex Assigned At [facility] Start: 08-24-2023 Tobacco smoking status Never s moked tobacco (finding) [facility] Tobacco smoking status Never [place] [facility] Goals Date Patient Goal Desired Activity /State Functional Status Date Assessment Result Facility 12-08-2023 Functional Status N/A [facility] Mauricio 08-24-2023 Functional Status N/A [facility] Clinical Note 08-24-2023 Note Date & Type Note Facility 08-24-2023 Note Chief Complaint consultation for nevus HPI Staff 68 year old female presents on consultation from Dr. Bucahnan for face nevus. Patient reports small lesion to right nostril, one to left cheek and one to left mormonism area. History of Present Illness 68 yo female with h/o enlarging, irritated lesion of face; itch; no bleeding; present for several months. increased sun exposure; no asa or NSAID use. Review of Systems PHQ Score Initial Depression [...] and are negative or noncontributory. Physical Exam Vitals & Measurements HR: 65(Peripheral) RR: 16 BP: 181/101 HT: 65 in HT: 165 cm WT: 74.4 kg WT: 163.68 lb BMI: 27.33 HEENT: normal conjunctiva, sclera clear, no scleral icterus, EOM intact, PERRLA, oral mucosa moist without lesions. Neck: trachea midline, no mass, symmetric, no thyromegaly or nodules, no adenopathy Skin: no rashes, left cheek with 3 mm raised kertotic lesion; 1 mm raised tag lateral to left eye; right nose with 2 mm raised, red, rough area, no ulceration or bleeding no ulcers, no subcutaneous nodules, induration. Psychiatric/Neuro: oriented to time, place, person, judgement normal, affect appropriate for age, insight intact, no focal deficits. Tests: , review of old records completed , Discussed surgical options, risks, and possible complications with patient. Assessment/Plan 1. Solar keratosis (L57.0: Actinic keratosis) plan excisional biopsy under local anesthesia in the office for definitive diagnosis and treatment; informed consent obtained. 2. Skin tag (L91.8: Other hypertrophic disorders of the skin) plan excisional biopsy under local anesthesia in office, informed consent obtained. Follow-up No qualifying data available Problem List/Past [...] Recorded SARS-CoV-2 (COVID-19) mRNA-1273 vaccine 07/03/2020 Recorded [facility] Comment on above: Result Comment: Elec tronically Signed By: HUGO SAXENA, Damaso Banda\Date and Time Signed: 08/24/23 16:37 EDT Evaluation note 11-22-2021 Note Date & Type [...] s/s of dehydration or severe abdominal pain. [facility] Other Clinical Note 10-10-2021 Note Date & Type Note Facility 10-10-2021 [...] authenticated by: LEATHA HURLEY Date: 2021-10-10 11:39 [facility] Evaluation + Plan note Note Date & Type Note Facility Evaluation + Plan note Future Appointments Appointment Date:09/08/2023 03:00:00 PM Scheduled Provider:Damaso ARIAS MD Location:[facility] Appointment Type: Procedure 30 [facility] [place] Evaluation + Plan note Note Date & Type Note Facility Evaluation + Plan note Future Appointments Appointment Date:12/15/2023 02:00:00 PM Scheduled Provider:Damaso ARIAS MD Location:[facility] Appointment Type: Established 15 [facility] History general Narrative - Reported Note Date & Type Note Facility History general Narrative - Reported Type Medical History Hepatitis C from [facility] blood transfusion Medical History Hypertension Surgical History cyst right hand-calcium deposit 1985 Hospitalization History see above [facility] Other Hospital course Narrative Note Date & Type Note Facility Hospital course Narrative No data available for this section [facility] [place] [facility] Discharge instructions Note Date & Type Note Facility Hospital Discharge instructions No data available for this section [facility] [place] Progress note Note Date & Type Note Facility Progress note No data available for this section [facility] [place] Advance Directives No Advanced Directives Records Found Advance Directive Response Recorded Date/ Time Advance Directives No December 12:21pm Chief Complaint and Reason for Visit Chief Complaint Screening Assessments No Assessments Information Available Summary Purpose Family History No Family History Records FoundNo Family History Records Found No data available for this section No data available for this section No data available for this section No Family History Records Found No data available for this section No Family History Records FoundNo Family History Records Found Additional Source Comments INFORMATION SOURCE (unrecogn ized section and content) DATE CREATED AUTHOR 08/11/2020 [facility] DATE CREATED AUTHOR AUTHOR'S ORGANIZ ATION 02/16/2022 [facility] DATE CREATED AUTHOR AUTHOR'S ORGANIZ ATION 12/13/2023 [facility] DATE CREATED AUTHOR AUTHOR'S ORGANIZ ATION 12/16/2023 [facility] DATE CREATED AUTHOR AUTHOR'S ORGANIZ ATION 12/17/2023 [facility] REASON FOR VISIT (unrecogniz ed section and content) NANDO VAZQUEZ, H/Harris, MICKY EXPSO URE Patient Care team informatio n (unrecognized section and content) Personnel Name: Re Buchanan MD Address: Address: [address] [place] [address] Personnel Name: Re Buchanan MD Address: Address: [address] [place] [address] Personnel Name: Re Buchanan MD Address: Address: [address] [place] [address] Personnel Name: Re Buchanan MD Address: Address: [address] [place] [address], [place] [address] FOR RECORDS PERTAINING TO PATIENTS WHO ARE [...] BE BASED ON THE PRIMARY CLINICAL RECORDS. [facility] provides no warranty or guarantee of the accuracy or completeness of information in this document.
[2024-09-06 09:07] LABS: Eosinophils Absolute Auto 0.1 10^3/uL (0.0-0.7); Eosinophils Percent Auto 1.4 % (0.9-7.0); Hematocrit 38.7 % (36.0-48.0); Hemoglobin 12.9 g/dL (12.0-16.0); Immature Granulocytes Abs Auto 0.01 10^3/uL (0.00-0.03); Immature Granulocytes Pct Auto 0.2 % (0.0-0.5); Lymphocytes Absolute Auto 1.4 10^3/uL (1.2-3.8); Lymphocytes Percent Auto 31.7 % (20.5-60.0); Mean Corpuscular HGB Conc 33.3 g/dL (29.9-35.2); Mean Corpuscular Hemoglobin 29.8 pg (26.7-34.0); Mean Corpuscular Volume 89.4 fL (81.0-99.0); Mean Platelet Volume 11.1 fL (9.5-13.5); Monocytes Absolute Auto 0.3 10^3/uL (0.3-0.8); Monocytes Percent Auto 7.4 % (1.7-12.0); Neutrophils Absolute Auto 2.6 10^3/uL (1.4-6.5); Neutrophils Percent Auto 59.3 % (43.0-75.0); Platelet Count 160 10^3/uL (150-450); Red Blood Count 4.33 10^6/uL (4.20-5.40); Red Cell Distribution Width 12.7 % (11.0-15.0); White Blood Count 4.4 10^3/uL (4.0-11.0)
[2024-09-06 09:32] LABS: Estimated Average Glucose 123 mg/dL; Glycohemoglobin A1C 5.9 % (4.5-6.2)
[2024-09-06 09:46] LABS: Alanine Aminotransferase 18 U/L (14-59); Albumin Level 3.7 g/dL (3.4-5.0); Alkaline Phosphatase 86 U/L (46-116); Anion Gap 13.6; Aspartate Amino Transferase 15 U/L (15-37); Bilirubin Total 0.5 mg/dL (0.2-1.0); Carbon Dioxide 27.9 mmol/L (21.0-32.0); Chloride 105 mmol/L (98-107); Chol HDL Ratio 2.2; Cholesterol 174 mg/dL (<=200); Estimated GFR (African America >60 (>=60 mL/min/1.73m^2); Estimated GFR (Non-African Ame >60 (>=60 mL/min/1.73m^2); Globulin 3.7 g/dL; Glucose 101 mg/dL (74-106); HDL Cholesterol 79 mg/dL (40-60); Potassium 4.5 mmol/L (3.5-5.1); Sodium 142 mmol/L (136-145); Thyroid Stimulating Hormone 1.798 uIU/mL (0.358-3.740); Total Protein 7.4 g/dL (6.4-8.2); Triglycerides 68 mg/dL (<=150); VLDL CHOLESTEROL 13.6 mg/dL
== END 2024-09-06 08:07 | disposition home or self-care (01) ==
LOC: LAB 08:08
PROVIDERS: PCP Family Medicine; Visit Provider Family Medicine
DX: E03.9 Hypothyroidism, unspecified (principal); R53.83 Other fatigue; I10 Essential (primary) hypertension; E66.3 Overweight; B19.20 Unspecified viral hepatitis C without hepatic coma; L30.9 Dermatitis, unspecified; E78.5 Hyperlipidemia, unspecified; R73.09 Other abnormal glucose; D64.9 Anemia, unspecified
CPT/HCPCS: 36415; 80053; 80061; 83036; 83540; 84436; 84443; 84481; 85025

== ENCOUNTER 2024-10-25 14:53 | Emergency (ER) | payer MEDICARE, OTHER, SELFPAY ==
--- OUTSIDE RECORDS SUMMARY | 2023-12-15 13:54 | XMS_ITS ---
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 History of Present Illness 1 week s/p excision lesion left cheek and skin tag left jew; pathology on cheek lesion consistent with skin tag; doing well, no pain or drainage, minimal itching. Review of Systems ROS - Provider Constitutional: no fever, no sweats, no weight loss. Eyes: no glasses, no blurred vision, no visual loss. ENMT: no dentures, no hoarseness, no swallowing difficulties, no hearing loss, no ear infection(s), no nose bleeds. Cardiovascular: normal blood pressure, no chest pain, regular heartbeat, no heart murmur. Respiratory: no shortness of breath, no cough, no asthma, no wheezing. Gastrointestinal: no nausea, no vomiting, no diarrhea, no constipation, no blood in stool, no change in bowel habits, no abdominal pain, no hepatitis. Genitourinary: no kidney stones, no urine infection, no dysuria. Musculoskeletal: no pain, no weakness. Skin: no changing moles, no rash, no skin lumps. Neurologic: no seizures, no epilepsy, no headache. Psychiatric: no emotional or psychiatric problem. Heme/Lymph: no bleeding problems, no anemia, no blood clots, no transfusions. Allergy/Immunologic: no swollen lymph nodes/glands, no IV drug abuse. Other: Additional ROS info: Except as noted in the above Review of Systems and in the History of Present Illness, all other systems have been reviewed and are negative or noncontributory. Physical Exam skin: Assessment/Plan 1. Skin tag (L91.8: Other hypertrophic disorders of the skin) sutures removed; doing well, call with problems/questions. Follow-up No qualifying data available Problem List/Past Medical History Ongoing BMI 27.0-27.9,adult Diverticular disease of colon Eczema Family history of colon cancer requiring screening colonoscopy Granuloma of skin Hepatitis C, chronic Hypertension Keratosis, seborrheic Nevus Overweight Pruritus Skin tag Solar keratosis Historical No qualifying data Procedure/Surgical History Colonoscopy (09/26/2020). Medications carvedilol 12.5 mg Tab, 12.5 mg= 1 tab(s), Oral, BID Allergies Toprol-XL (Nausea) Social History Alcohol - Denies Alcohol Use, 08/08/2020 Substance Abuse - Denies Substance Abuse, 08/08/2020 Tobacco Never (less than 100 in lifetime) Tobacco Use:. Never Smokeless Tobacco Use:., 08/24/2023 Family History Dementia: Mother. Hypertension: Mother. Primary malignant neoplasm of colon: Sister. Primary malignant neoplasm of female breast: Sister. Immunizations Vaccine Date Status SARS-CoV-2 (COVID-19) mRNA-1273 vaccine 04/10/2021 Recorded SARS-CoV-2 (COVID-19) mRNA-1273 vaccine 08/03/2020 Recorded SARS-CoV-2 (COVID-19) mRNA-1273 vaccine 07/03/2020 Recorded Result Comment: Electronical ly Signed By: HUGO SAXENA, Damaso Salinas.jamar\Date and Time Signed: 12/15/23 14:02 EDT SURGICAL PATHOLOGY REPORT Observed: 11/19 2:33 PM Status: F Source: [address] [id number]- Surgical Pathology Report Collected Date/Time: 12/08/2023 14:33 EDT Pathologist: Milton Silveira MD Received Date/Time: 12/10/2023 07:49 EDT HUGO ASXENA, Damaso ARIAS MD, Damaso Ferrer Surgical Pathology Report - 12/11/2023 13:51 EDT - Auth (Verified) Final Diagnosis Skin lesion of left cheek: Fibroepithelial polyp (skin tag) (Electronic Signature) Milton Silveira MD 12/11/2023 13:51 Clinical Information enlarging raised lesion left cheek Pre-Op Diagnosis: solar keratosis Procedure: excisional biopsy left cheek lesion Post-Op Diagnosis: Solar keratosis Specimen(s) Received left cheek keratotic lesion Gross Description Consists of a fragment of morales tissue measuring 0.1 cm in greatest dimension, totally submitted. (MG) MSG:MCA Microscopic Description Microscopic examination performed unless gross only specified. Performed By: #### [id number] # ### [facility] [address] [place] [address] SURGICAL PATHOLOGY REPORT Observed: 11/19 2:33 PM Status: F Source: [place] [address]- Surgical Pathology Report Collected Date/Time: 12/08/2023 14:33 EDT Pathologist: Milton Silveira MD Received Date/Time: 12/10/2023 07:49 EDT HUGO SAXENA, Damaso ARIAS MD, Damaso Ferrer Surgical Pathology Report - 12/11/2023 13:51 EDT - Auth (Verified) Final Diagnosis Skin lesion of left cheek: Fibroepithelial polyp (skin tag) (Electronic Signature) Milton Silveira MD 12/11/2023 13:51 Clinical Information enlarging raised lesion left cheek Pre-Op Diagnosis: solar keratosis Procedure: excisional biopsy left cheek lesion Post-Op Diagnosis: Solar keratosis Specimen(s) Received left cheek keratotic lesion Gross Description Consists of a fragment of morales tissue measuring 0.1 cm in greatest dimension, totally submitted. (MG) MSG:MCA Microscopic Description Microscopic examination performed unless gross only specified. Performed By: #### [id number] # ### [facility] [address] [place] [address] GENERAL SURGERY OFFICE/CLINI C NOTE Observed: 12/08/2023 2:18 PM Status: F Source: [facility] General Surgery Office/Clini c Note Chief Complaint in-office excisional biopsies HPI Staff Presents for in-office excisional biopsies lesions from left cheek and left eye. History of Present Illness patient here for excision left face lesions, no change from recent evaluation; irritated skin on nose has resolved. Review of Systems PHQ Score Initial Depression Screen Score: 0 SCORE ROS - Provider Constitutional: no fever, no sweats, no weight loss. Eyes: no glasses, no blurred vision, no visual loss. ENMT: no dentures, no hoarseness, no swallowing difficulties, no hearing loss, no ear infection(s), no nose bleeds. Cardiovascular: normal blood pressure, no chest pain, regular heartbeat, no heart murmur. Respiratory: no shortness of breath, no cough, no asthma, no wheezing. Gastrointestinal: no nausea, no vomiting, no diarrhea, no constipation, no blood in stool, no change in bowel habits, no abdominal pain, no hepatitis. Genitourinary: no kidney stones, no urine infection, no dysuria. Musculoskeletal: no pain, no weakness. Skin: no changing moles, no rash, no skin lumps. Neurologic: no seizures, no epilepsy, no headache. Psychiatric: no emotional or psychiatric problem. Heme/Lymph: no bleeding problems, no anemia, no blood clots, no transfusions. Allergy/Immunologic: no swollen lymph nodes/glands, no IV drug abuse. Other: Additional ROS info: Except as noted in the above Review of Systems and in the History of Present Illness, all other systems have been reviewed and are negative or noncontributory. Physical Exam skin: 3 mm raised keratotic lesion left cheek; 1 mm skin tag lateral to left eye, no pigmentation change. Procedure patient brought to the procedure room, placed in supine position, areas prepped and draped in sterile fashion; anesthetized with 1 % lidocaine; left cheek lesion excised in elliptical fashion down to subcutaneous fat; closed with interrupted 5-0 nylon sutures; total lenfth 5 mm; skin tag anesthetized with 1 % lidocaine and excised with cautery; tolerated well; ebl < 2 ml. Assessment/Plan 1. Solar keratosis (L57.0: Actinic keratosis) Ordered: Exc Face-Mm B9+Ligia 0.5 < Cm 22021 Office Visit No Charge Pathology Tissue Exam Remove skin tags 15 or less 54[address] 2. Skin tag (L91.8: Other hypertrophic disorders of the skin) Follow-up No qualifying data available Problem List/Past Medical History Ongoing BMI 27.0-27.9,adult Diverticular disease of colon Eczema Family history of colon cancer requiring screening colonoscopy Granuloma of skin Hepatitis C, chronic Hypertension Keratosis, seborrheic Nevus Overweight Pruritus Skin tag Solar keratosis Historical No qualifying data Procedure/Surgical History Colonoscopy (09/26/2020). Medications carvedilol 12.5 mg Tab, 12.5 mg= 1 tab(s), Oral, BID Allergies Toprol-XL (Nausea) Social History Alcohol - Denies Alcohol Use, 08/08/2020 Substance Abuse - Denies Substance Abuse, 08/08/2020 Tobacco Never (less than 100 in lifetime) Tobacco Use:. Never Smokeless Tobacco Use:., 08/24/2023 Family History Dementia: Mother. Hypertension: Mother. Primary malignant neoplasm of colon: Sister. Primary malignant neoplasm of female breast: Sister. Immunizations Vaccine Date Status SARS-CoV-2 (COVID-19) mRNA-1273 vaccine 04/10/2021 Recorded SARS-CoV-2 (COVID-19) mRNA-1273 vaccine 08/03/2020 Recorded SARS-CoV-2 (COVID-19) mRNA-1273 vaccine 07/03/2020 Recorded Result Comment: Electronical ly Signed By: HUGO SAXENA, Damaso Gonzalez\.br\Date and Time Signed: 12/08/23 14:18 EDT AMBULATORY VISIT SUMMARY Observed: 12/07 2:00 PM Status: F Source: [facility] Ambulatory Visit Summary ROBERAUSTENCHRISTY J :1955 Visit Date:12/08/2023 Ambulatory Visit Instructions Your Care Team Attending Physician - Damaso ARIAS MD Primary Care Physician - Akash Buchanan MD This Is Your Medications List carvedilol (carvedilol 12.5 mg Tab) Procedures Performed Colonoscopy (09/26/2020). What to do next Scheduled Follow-Up Appointments Thursday 2:00 PM EDT With: Damaso ARIAS MD Where: [facility] [address], [address], [place] [address]- Medications What How Much When Instructions Unchanged carvedilol (carvedilol 12.5 mg Tab) 1 Tablets By Mouth 2 times a day Allergies Toprol-XL (Nausea) Problems Ongoing - Any problem that you are currently receiving treatment for. BMI 27.0-27.9,adult Diverticular disease of colon Eczema Family history of colon cancer requiring screening colonoscopy Granuloma of skin Hepatitis C, chronic Hypertension Keratosis, seborrheic Nevus Overweight Pruritus Skin tag Solar keratosis Patient Survey You may receive a survey via text or e-mail asking about your office visit. Please share your experience with us by completing your survey. We appreciate your feedback and thank you for choosing us for your care. ALLERGIES DATE TYPE / CODE NAME / CODE REACTION SEVERITY SOURCE [id number](SN ED CT) No Known Allergies [facility] /[id number]([facility] ED CT) Toprol-XL [id number] [facility] /[id number](SN ED CT) No Known Medication Allergies [facility] ENCOUNTERS ADMIT/DISCHARGE ACCOUNT NUMBER ADMITTING ENCOUNTER CLASS LOCATION SOURCE 12/15/2023/ 4 [id number] [facility] 12/08/2023/ 4 [id number] Damaso ARIAS Ambulatory [facility]: FT LAB [facility] 12/08/2023/ 4 [id number] [facility] PAYERS ENCOUNTER GUARANTOR PAYER SUBSCRIBER SOURCE 12/15/2023 CHRISTY SALTERB: [id number] [facility] 32Tel: ~~(41 (HP) Primary Insurance:MEDICAREP olicy Number: [id number] e Date:6399-24-30[address] [id number], [place] [address]PB: CHRISTY RICK [facility] 12/15/2023 Secondary Insurance:HUMANAPol icy Number: [id number] Date:2020-08-02 [facility]2023 CHRISTY SMITHPEGGYB: [id number] [facility] [address] 32Tel: ~~(41 (HP) Primary Insurance:MEDICAREP olicy Number: [id number] e Date:[id number] [place] [address]LX: CHRISTY Rosas [facility] 12/08/2023 Secondary Insurance:HUMANAPol icy Number: [id number] Date:2023-12-08 CHRISTY Rosas [facility] 12/08/2023 CHRISTY SALTERB: [id number] [facility] [address] 32Tel: ~~(41 (HP) Primary Insurance:MEDICAREP olicy Number: [id number] e Date:7584-04-92AM [id number] [place] [id number]: [facility] Secondary Insurance:HUMANAPol icy Number: [id number] Date:2020-08-02 CHRISTY Alison [facility]
--- NOTE | 2024-10-25 15:20 | ECG_ITS ---
The [facility] Test Date: 2024-10-25 Pat Name: CHRISTY RICHTER Department: Room: - Gender: Female Director Facilities Maintenance: : 1955 Requested By: RE CURTIS Order Number: [id number] Reading MD: PILAR KELLY Measurements Intervals Gaston Rate: 72 P: 64 NE: 196 QRS: 55 QRSD: 82 T: 56 QT: 392 QTc: 417 Interpretive Statements 1100 Sinus rhythm 9110 normal ECG No previous ECG available for comparison Electronically Signed On 10-27-2024 9:03:00 EDT by PILAR KELLY
--- NOTE | 2024-10-25 15:20 | XR_ITS ---
The [address] [address] Patient Name: CHRISTY RICHTER MRN: [id number] date: 1955 Sex: F Assigned Patient Location: ED.MAIN Current Patient Location: ED.MAIN Accession/Order Number: [id number] Exam Date: 10/25/2024 15:50 Report Date: 10/25/2024 15:53 At the request of: CAROLE PICKETT MD Procedure: XR chest 1V XR chest 1V 10/25/2024 3:41 PM SIGNS AND SYMPTOMS: ^chest pain PROTOCOL: Frontal radiograph of the chest COMPARISON: None FINDINGS: The trachea is midline. The heart and mediastinal structures are within normal limits. There is interstitial prominence with hazy airspace opacity near the left heart border. This may represent an infectious infiltrate. Other etiologies such as pulmonary edema should be considered. The bony thorax is intact. XR/XR chest 1V IMPRESSION: There is interstitial prominence with hazy airspace opacity near the left heart border. This may represent an infectious infiltrate. Other etiologies such as pulmonary edema should be considered. Impression dictated by: Hunter Becerra M.D. 10/25/2024 3:53 PM Dictation Location: [place] [address] Electronically authenticated by: [id number] Y Date: 10/25/2024 15:53
[2024-10-25 15:26] VITALS: BP 157/89; PULSE 81; TEMP 36.9; O2SAT 98; BMI 26.6
[2024-10-25 15:39] LABS: Hematocrit 39.1 % (36.0-48.0); Hemoglobin 12.9 g/dL (12.0-16.0); Immature Granulocytes Abs Auto 0.01 10^3/uL (0.00-0.03); Immature Granulocytes Pct Auto 0.2 % (0.0-0.5); Lymphocytes Absolute Auto 1.6 10^3/uL (1.2-3.8); Mean Corpuscular HGB Conc 33.0 g/dL (29.9-35.2); Mean Corpuscular Hemoglobin 29.3 pg (26.7-34.0); Mean Corpuscular Volume 88.9 fL (81.0-99.0); Platelet Count 170 10^3/uL (150-450); Red Blood Count 4.40 10^6/uL (4.20-5.40); White Blood Count 6.6 10^3/uL (4.0-11.0)
[2024-10-25 15:40] VITALS: PULSE 78
--- NOTE | 2024-10-25 15:54 | ED.GENADUL1 ---
HPI HPI - General Adult General Chief complaint: Recheck/Abnormal Lab/Rx Stated complaint: ABNORMAL TEST SENT BY [facility]Y Time Seen by Provider: 10/25/24 15:03 Source: patient Mode of arrival: walk-in Limitations: no limitations History of Present Illness HPI narrative: The patient history of hypertension and no history of smoking cigarettes is coming to the ER with a chest pain that resolved before arrival, almost 6 hours ago before arrival the patient had an episode over 15-minute that she had chest pain mostly in the upper chest. Patient denies any vomiting with it but she did feel nauseous, and there was some cold sweating with it but it resolved by itself, there was no cough no fever no difficulty breathing at any time The patient right now is completely pain-free She was evaluated in primary care doctor office with an EKG that was concerning for possible acute coronary syndrome and that whether send her over Related Data Allergies Allergy/AdvReac Type Severity Reaction Status Date / Time No Known Drug Allergies Allergy Verified 10/25/24 15:26 Review of Systems ROS Status of ROS 10 or more systems reviewed and unremarkable except as noted in history and below PFSH PFSH Social History Little interest or pleasure in doing things: not at all Feeling down, depressed, or hopeless: not at all Exam Narrative Exam Narrative: Nurses notes and vital signs reviewed and patient is not hypoxic. General: Well-appearing and in no apparent distress. Skin: Warm, dry, no pallor noted. No rash. Head: Normocephalic, atraumatic. Neck: Supple, non-tender. Eye: Pupils are equal, round and EOMI. No scleral icterus. Cardiovascular: Regular Rate and Rhythm without murmur, gallop or rub. Respiratory: No accessory muscle use or respiratory distress. Lungs are clear to auscultation, no wheezing, rales or rhonchi Chest Wall: no tenderness Back: No midline thoracic or lumbar vertebral tenderness. No CVA tenderness Musculoskeletal: normal ROM, no calf or popliteal tenderness, no lower extremity edema/swelling GI: Abdomen is soft, non-distended. Normal bowel sounds. No masses appreciated. No tenderness to palpation. No rebound, guarding, or rigidity noted. Neurological: A&O x4. No cranial nerve dysfunction observed. No truncal ataxia. Moves all extremities. Sensation intact. Psychiatric: Cooperative and interactive. Normal mood and affect. Constitutional Vital Signs, click to edit/add: Last Vital Signs Temp 98.5 F 10/25/24 15:26 Pulse 81 10/25/24 15:26 Resp 16 10/25/24 15:26 BP 157/89 H 10/25/24 15:26 Pulse Ox 98 10/25/24 15:26 O2 Del Method Room Air 10/25/24 15:26 Course Vital Signs Vital signs: Vital Signs Temperature 98.5 F 10/25/24 15:26 Pulse Rate 81 10/25/24 15:26 Respiratory Rate 16 10/25/24 15:26 Blood Pressure 157/89 H 10/25/24 15:26 Pulse Oximetry 98 10/25/24 15:26 Oxygen Delivery Method Room Air 10/25/24 15:26 Temperature 98.5 F 10/25/24 15:26 Pulse Rate 81 10/25/24 15:26 Respiratory Rate 16 10/25/24 15:26 Blood Pressure 157/89 H 10/25/24 15:26 Pulse Oximetry 98 10/25/24 15:26 Oxygen Delivery Method Room Air 10/25/24 15:26 Medical Decision Making [facility] Narrative Medical decision making narrative: The patient EKG showing sinus rhythm with a heart rate of [address] elevation or depression The patient EKG that she was sent with was normal and no acute changes on it CBC and chemistry showed no acute pathology and the troponin was negative Chest x-ray did not show any concerning correlating finding there was some haziness on the left side but the patient does not have any cough fever or any other concerns The patient had the results of the x-ray discussed with her and I did explain to her that her symptoms right now are not correlating with this finding we will infiltrate The patient will have another troponin. But when asked about any reason that could be causing irritation of the esophagus the patient mentioned that she was having her vitamin mostly vitamin D when this incident happened that could be the reason for pill irritation to the upper esophagus The patient second troponin is negative she was discharged home with supportive care The patient is to follow up with primary care physician in next 2-3 days or to return to the emergency department should any of the signs or symptoms worsen or new symptoms develop. The patient agrees with the following Diagnosis and Treatment plan and the patient will be discharged home. Lab Data Labs: Lab Results 10/25/24 10/25/24 Range/Units 15:35 16:28 WBC 6.6 (4.0-11.0) 10^3/uL RBC 4.40 (4.20-5.40) 10^6/uL Hgb 12.9 (12.0-16.0) g/dL Hct 39.1 (36.0-48.0) % MCV 88.9 (81.0-99.0) fL MCH 29.3 (26.7-34.0) pg MCHC 33.0 (29.9-35.2) g/dL RDW 12.6 (11.0-15.0) % Plt Count 170 (150-450) 10^3/uL MPV 10.2 (9.5-13.5) fL Neut % (Auto) 68.5 (43.0-75.0) % Lymph % (Auto) 24.6 (20.5-60.0) % [place] % (Auto) 6.0 (1.7-12.0) % Eos % (Auto) 0.5 L (0.9-7.0) % Baso % (Auto) 0.2 (0.2-2.0) % Neut # (Auto) 4.5 (1.4-6.5) 10^3/uL Lymph # (Auto) 1.6 (1.2-3.8) 10^3/uL [place] # (Auto) 0.4 (0.3-0.8) 10^3/uL Eos # (Auto) 0.0 (0.0-0.7) 10^3/uL Baso # (Auto) 0.0 (0.0-0.1) 10^3/uL Abs Immat Gran (auto) 0.01 (0.00-0.03) 10^3/uL Imm/Tot Granulo (auto) 0.2 (0.0-0.5) % PT 10.9 (9.0-11.6) sec INR 1.03 Sodium 141 (136-145) mmol/L Potassium 3.6 (3.5-5.1) mmol/L Chloride 104 (98-107) mmol/L Carbon Dioxide 29.7 (21.0-32.0) mmol/L Anion Gap 10.9 BUN 23.0 H (7.0-18.0) mg/dL Creatinine 1.30 H (0.55-1.02) mg/dL Est GFR ( Amer) 49 L (>=60 mL/min/1.73m^2) Est GFR (Non-Af Amer) 41 L (>=60 mL/min/1.73m^2) BUN/Creatinine Ratio 17.7 Glucose 121 H (74-106) mg/dL Calcium 9.1 (8.5-10.1) mg/dL Total Bilirubin 0.4 (0.2-1.0) mg/dL AST 16 (15-37) U/L ALT 16 (14-59) U/L Alkaline Phosphatase 99 (46-116) U/L Troponin I High Sens 7.2 7.5 (4.0-51.3) pg/mL Total Protein 7.5 (6.4-8.2) g/dL Albumin 3.8 (3.4-5.0) g/dL Globulin 3.7 g/dL Albumin/Globulin Ratio 1.0 Discharge Plan Discharge Chief Complaint: Recheck/Abnormal Lab/Rx Clinical Impression: Esophageal spasm, Atypical chest pain Patient Disposition: Home, Self-Care Time of Disposition Decision: 17:01 Condition: Good Print Language: Croatian Instructions: Chest Pain (ED) Referrals: Akash Buchanan MD [Primary Care Provider, Family Practice] - 1 week
[2024-10-25 15:55] LABS: INR 1.03; Prothrombin Time 10.9 sec (9.0-11.6)
[2024-10-25 15:59] LABS: Alanine Aminotransferase 16 U/L (14-59); Albumin Globulin Ratio 1.0; Albumin Level 3.8 g/dL (3.4-5.0); Alkaline Phosphatase 99 U/L (46-116); Anion Gap 10.9; Aspartate Amino Transferase 16 U/L (15-37); Blood Urea Nitrogen 23.0 mg/dL (7.0-18.0); Calcium 9.1 mg/dL (8.5-10.1); Carbon Dioxide 29.7 mmol/L (21.0-32.0); Chloride 104 mmol/L (98-107); Estimated GFR (African America 49 (>=60 mL/min/1.73m^2); Estimated GFR (Non-African Ame 41 (>=60 mL/min/1.73m^2); Globulin 3.7 g/dL; Glucose 121 mg/dL (74-106); Potassium 3.6 mmol/L (3.5-5.1); Sodium 141 mmol/L (136-145); Total Protein 7.5 g/dL (6.4-8.2)
[2024-10-25 17:20] VITALS: BP 176/86; PULSE 76; O2SAT 98
[2024-10-25 17:32] VITALS: BP 169/93; PULSE 63; O2SAT 99
== END 2024-10-25 17:34 | disposition home or self-care (01) ==
PROVIDERS: Emergency Provider Emergency Medicine; PCP Family Medicine
DX: R07.89 Other chest pain (principal); K22.4 Dyskinesia of esophagus; I10 Essential (primary) hypertension
CPT/HCPCS: 36415; 71045; 80053; 84484; 85025; 85610; 93005; 99285

== ENCOUNTER 2024-11-02 08:49 | Outpatient (OUT) | payer MEDICARE, OTHER, SELFPAY ==
--- OUTSIDE RECORDS SUMMARY | 2024-10-25 10:00 | XMS_ITS ---
Author Organization The [facility] [place] Address [address] [place] [address] Care Team Providers Care Spikemaking Supervisor Name Role Phone Dewayne Haile Primary Care Provider [phone] REASON FOR VISIT bp check Vital Signs Height 65 in 10/25/2024 Blood pressure systolic 146 mm Hg 10/26/19 25 Blood pressure diastolic 84 mm Hg 025 Encounters Encounter Location Date Provider Diagnosis [facility] [address] [place] [address] 10/25/2024 Haile Buchanan Essential Hypertensi on I10 Assessments Encounter Date Diagnosis (ICD Code) Assessment Notes Treatment Notes Treatment Clinical Notes Section Notes 10/25/2024 Essential Hypertension (ICD-10 - I10) Plan Of Treatment Next Appt Details Provider Name:Haile Buchanan, 10:00:00 AM, [address] [place], [address], Progress Notes * Reva RICHTERDOB: [birth year] (69 yo F)Acc No.[id number]:10/25/2024 UNLOCKED PROGRESS NOTE BP Check Patient: Reva ELENA Provider: Denny Buchanan ([facility])MD :1955 A ge:69 Y S ex:Female Date:10/25/2024 Address:[address] [place] [id number] Check In:02:08 PM EST Subjective: * Chief Complaints: * 1 . Bp check. * Medical History: Objective: * Vitals: H t: 65 in, BP:146/84mm Hg, Ht-cm: 165.1 cm. Assessment: * Assessment: 1. E ssential Hypertension - I10 (Primary) Plan: * Treatment: * * Electronic signature of Haile Buchanan MD, [id number] on 11/02/2024 at 08:52 AM EDT Sign off status: Pending Visit Status: O FF CANC (OFFICE CANCEL) * Provider: Denny Buchanan ([facility])MD Date: 10/25/2024 Generated for Johnna cedeño/Melinda/Yueitting on: 11/02/2024 08:52 AM EDT
--- OUTSIDE RECORDS SUMMARY | 2024-10-25 10:15 | XMS_ITS ---
Author Organization The [facility] in [place] Address [address] [place] [address] Care Team Providers Care Stain Sprayer Name Role Phone Haile Buchanan Primary Care Provider [phone] Eileen Espinosa Unavailable [phone] Allergies Allergen (clinical drug ingredient) Drug/Non Drug Allergy documented on EMR Reaction Allergy Type Onset Date Status tramadol traMADol HCl lightheaded Drug Allergy Ac tive lisinopril Lisinopril cough Drug Allergy Activ e REASON FOR VISIT bp check, Patient expressed that at 10 AM this morning she had an episode of feeling like chest was being strangled , sweats, nausea- lasting about 30 minutes, Needs refill of amlodipine if keeping on that dose Medications Medication SIG (Take, Route, Frequency, Duration) Notes Start Date End Date Status Norvasc 5 MG 1 tablet Orally Once a day for 30 days 09/23/2024 Active Social History Tobacco Use: Social History Observation Description Date Details (start date - stop date) Never Smoker NA - NA Tobacco Use/Smoking Question Answer Notes Patient is a nonsmoker Vital Signs Weight 162.2 lbs 10/25/2024 Height 65 in 10/25/2024 Blood pressure systolic 146 mm Hg 10/26/19 25 Blood pressure diastolic 84 mm Hg 025 Temperature 97.8 degrees Fahrenheit 10/26/19 25 Heart Rate 93 /min 10/25/2024 BMI 26.99 kg/m2 10/25/2024 Procedures Procedure Date Ordered Date Performed Result Body Sit e EKG w Interp & Report - performed 10/25/2024 N/ A CARDIO Stress Test - Treadmill Exercise 10/25/2024 N/A Encounters Encounter Location Date Provider Diagnosis [facility] [address] [place] [address] 10/25/2024 Eileen Espinosa Essential Hypertensi on I10 and Chest discomfort R07.89 Assessments Encounter Date Diagnosis (ICD Code) Assessment Notes Treatment Notes Treatment Clinical Notes Section Notes 10/25/2024 Essential Hypertension (ICD-10 - I10) 10/25/2024 Chest discomfort (ICD-10 - R07.89) EKG stress test to ER for eval EKG here possible [place] Plan Of Treatment Medication Medication Name Sig Start Date Stop Date Notes Norvasc 5 MG 1 tablet Orally Once a day for 30 days 2024 Treatment Notes Assessment Notes Chest discomfort EKG stress test to ER for eval EKG here possible [place] Pending Test Test Name Order Date EKG w Interp & Report - performed 2024 CARDIO Stress Test - Treadmill Exercise 10/25/2024 Next Appt Details Follow Up: prn, Reason: Provider Name:Haile Buchanan, 10:00:00 AM, [address] [place], [address], Progress Notes * Reva RICHTERDOB: [birth year] (69 yo F)Acc No.[id number]:10/25/2024 Progress Note Patient: Reva ELENA Provider: Del Espinosa ([facility]), LANDFILL GRADER :1955 A ge:69 Y S ex:Female Date:10/25/2024 Address:[address] [place], [place] [phone] Pcp:Haile Buchanan Check In:02:24 PM ESTCheck O ut:02:48 PM EST Subjective: * Chief Complaints: * 1 . Bp check. 2. Patient expressed that at 10 AM this morning she had an episode of feeling like chest was being strangled , sweats, nausea- lasting about 30 minutes. 3. Needs refill of amlodipine if keeping on that dose. * HPI: G eneral: no cardiac history episode lasted 30 min chest pressure, nausea, sweating no pain now to ER for eval. * ROS: G eneral/Constitutional: Fever d enies. H eadache d enies. W eight loss�denies. O phthalmologic: Discharge d enies. E ye Pain d enies. I tching and redness d enies. E NT: Nasal discharge d enies. N yina congestion d enies.�Sore throat d enies. C ardiovascular: Chest tightness/ heavy pressure a dmits this morning lasted 30 min also nausea and sweating. R apid heart rate d enies. S welling of extremities�denies. C hest pain d enies. R espiratory: Productive cough d enies. C hest pain d enies. C ough d enies. S hortness of breath d enies. W heezing d enies. � G astrointestinal: Abdominal pain d enies. C onstipation d enies. D ecreased appetite d enies. D iarrhea d enies. N ausea d enies. V omiting�denies. G enitourinary: Urinary incontinence d enies. P ainful urination d enies. M usculoskeletal: Back pain d enies. N yojana pain d enies. M uscle aches d enies. S kin: Rash d enies. S kin lesion(s) d enies. � * Active Problem List K57.90 Diverticulosis Modified On:03/19/2023U Status:confirmed K29.70 Gastritis Modified On:03/19/2023U Status:confirmed E66.3 Over weight Modified On:03/19/2023U Status:confirmed D22.9 Nevus Modified On:03/19/2023U Status:confirmed L29.9 Pruritus Modified On:03/19/2023U Status:confirmed Z86.19 History of hepatitis Modified On:03/19/2023/U Status:confirmed L30.9 Eczema Modified On:04/23/2023U Status:confirmed B19.20 Hepatitis C Modified On:03/19/2023U Status:confirmed I10 Essential Hypertensi on Modified On:01/04/2024W/U Status:confirmed * Medical History: D iverticulosis, Gastritis, Over weight, Nevus, Pruritus, History of hepatitis, Eczema, Hepatitis C, Essential Hypertension. * Surgical History: r ight hand surgery . * Hospitalization/Major Diagno stic Procedure: D enies Past Hospitalization. * Family History: F ather: , glaucoma. M other: , diagnosed with Unspecified heart disease.�Sister(s): , breast cancer. * Social History: T obacco Use: T obacco Use/Smoking P atient is a n onsmoker * Medications: T aking Norvasc(amLODIPine Besylate) 5 MG Tablet 1 tablet Orally Once a day , Medication List reviewed and reconciled with the patient * Allergies: L isinopril: cough, traMADol HCl: lightheaded. Objective: * Vitals: W t:162.2lbs, Ht: 65 in, BP:146/84mm Hg, Temp:97.8F, HR:93/min, BMI:26.99Index, Ht-cm: 165.1 cm, Wt-k.57 kg. * Examination: G eneral Examinations: GENERAL APPEARANCE: a lert and oriented, i n no acute distress. EYES: c onjunctiva normal, sclera non-icteric. LUNGS: c lear to auscultation bilaterally. CARDIO: r egular rate and rhythm, S1, S2 normal. ABDOMEN: s oft, nontender. MUSCULOSKELETAL: G ait and station normal. SKIN: w arm and dry. Assessment: * Assessment: 1. E ssential Hypertension - I10 (Primary) 2 . C hest discomfort - R07.89� Plan: * Treatment: 2. C hest discomfort P rocedure: EKG w Interp & Report - performed P rocedure: CARDIO Stress Test - Treadmill Exercise Notes: EKG stress test to ER for eval EKG here possible [place] * Procedure Codes: 9 3000 EKG, WINTERP. * Follow Up: p rn * * Electronically signed by Raine Espinosa NP, GEOPHYSICAL ENGINEER.LANDFILL [id number] on 10/27/2024 at 09:36 AM EDT Sign off status: Completed Visit Status: C HK (Check Out) true * Provider: Del Espinosa ([facility])LEONID Date: 0 10/25/2024 Generated for Johnna cedeño/Melinda/eTмаринаsmitting on: 0 11/02/2024 08:52 AM EDT History and Physical Notes * HPI (History of Present Illness) Category Sub-Category Detail Notes Category Not es General no cardiac history episode lasted 30 min chest pressure, nausea, sweating no pain now to ER for eval Examination Category Sub-Category Detail Notes Category Not es General Examinations GENERAL APPEARANCE: alert a nd oriented, in no acute distress EYES: conjunctiva normal, sclera non-icteric EARS: NOSE: THROAT: CARDIO: regular rate and rhy thm, S1, S2 normal LUNGS: clear to auscultatio n bilaterally ABDOMEN: soft, nontender SKIN: warm and dry BACK: MUSCULOSKELETAL: Gait and station nor mal LYMPH NODES:
--- OUTSIDE RECORDS SUMMARY | 2024-10-26 04:22 | XMS_ITS ---
Author Organization [facility] in [place] Address [address] [place] [address] Care Team Providers Care Repairer Shoe Sticks Name Role Phone Haile Buchanan Primary Care Provider [phone] REASON FOR VISIT Blood Pressure- Medications Medication SIG (Take, Route, Frequency, Duration) Notes Start Date End Date Status Norvasc 10 MG 1 tablet Orally Once a day for 30 days 09/23/2024 Active Encounters Encounter Location Date Provider Diagnosis [facility] [address] [place] [address] 10/26/2024 Haile Buchanan Essential Hypertensi on I10 Assessments Encounter Date Diagnosis (ICD Code) Assessment Notes Treatment Notes Treatment Clinical Notes Section Notes 10/26/2024 Essential Hypertension (ICD-10 - I10) Plan Of Treatment Medication Medication Name Sig Start Date Stop Date Notes Norvasc 10 MG 1 tablet Orally Once a day for 30 days 09/23 Next Appt Details Provider Name:Haile Buchanan, 10:00:00 AM, [address] [place], [address], Progress Notes * Reva RICHTERDOB: [birth year] (69 yo F)Acc No.[id number]:10/26/2024 Patient: Reva ELENA :1955 A ge:69 Y S ex:Female Address:[address] [place] [phone] * Refills Refill Norvasc Tablet, 10 MG, [...] Date: Generated for Johnna cedeño/Melinda/eTransmitting on: 0 11/02/2024 08:52 AM EDT
--- OUTSIDE RECORDS SUMMARY | 2024-11-02 08:52 | XMS_ITS | Patient Health Record ---
Author Organization [facility] Address [address] [place] [address] Care Team Providers Care Signs And Displays Salesperson Name Role Phone Haile Curtis Primary Care Provider Eileen Espinosa Unavailable [phone] Allergies Allergen (clinical drug ingredient) Drug/Non Drug Allergy documented on EMR Reaction Allergy Type Onset Date Status tramadol traMADol HCl lightheaded Drug Allergy Ac tive lisinopril Lisinopril cough Drug Allergy Activ e Results Component Value Reference Range Notes IRON Reviewed date:09/06/2024 08:15:04 PM Interpretation: Performing Lab: Notes/Report: [facility] , Iron 81.0 50.0-170.0 ug/dL Performing Lab: see note ML - [facility] LB CBC AUTO DIFF Reviewed date:10/25/2024 07:12:58 PM Interpretation: Performing Lab: Notes/Report: [facility] , White Blood Count 6.6 4.0-11.0 10 3/uL Red Blood Count 4.40 4.20-5.40 10 6/uL Hemoglobin 12.9 12.0-16.0 g/dL Hematocrit 39.1 36.0-48.0 % Mean Corpuscular Volume 88.9 81.0-99.0 fL Mean Corpuscular Hemoglobin 29.3 26.7-34.0 pg Mean Corpuscular HGB Conc 33.0 29.9-35.2 g/dL Red Cell Distribution Width 12.6 11.0-15.0 % Platelet Count 170 150-450 10 3/uL Mean Platelet Volume 10.2 9.5-13.5 fL Neutrophils Percent Auto 68.5 43.0-75.0 % Lymphocytes Percent Auto 24.6 20.5-60.0 % Monocytes Percent Auto 6.0 1.7-12.0 % Eosinophils Percent Auto 0.5 0.9-7.0 % Basophils Percent Auto 0.2 0.2-2.0 % Immature Granulocytes Pct Auto 0.2 0.0-0.5 % Neutrophils Absolute Auto 4.5 1.4-6.5 10 3/uL Lymphocytes Absolute Auto 1.6 1.2-3.8 10 3/uL Monocytes Absolute Auto 0.4 0.3-0.8 10 3/uL Eosinophils Absolute Auto 0.0 0.0-0.7 10 3/uL Basophils Absolute Auto 0.0 0.0-0.1 10 3/uL Immature Granulocytes Abs Auto 0.01 0.00-0.03 10 3/uL Performing Lab: see note ML - [facility] LB Prothrombin Time INR Reviewed date:10/25/2024 07:12:58 PM Interpretation: Performing Lab: Notes/Report: [facility] , Prothrombin Time 10.9 9.0-11.6 sec INR 1.03 2.5-3.5 RECURRENT THROMBOSIS 2.0-3.0 CONDITIONS NOT LISTED BELOW 2.5-3.5 FOR PROSTHETIC HEART VALVE REPLACEMENT DESIRED INR: Performing Lab: see note ML - [facility] LB Troponin I High Sensitivity Reviewed date:10/25/2024 07:12:58 PM Interpretation: Performing Lab: Notes/Report: [facility] , Troponin I High Sensitivity 7.2 4.0-51.3 pg/mL NOTE: HIGH-SENSITIVITY TROPONIN ASSAY IS NOT INTENDED TO BE PERCENTILE OF cTnI DISTRIBUTION IN A REFERENCE POPULATION, WITH OTHER DIAGNOSTIC AND CLINICAL INFORMATION. CUT-OFF POINTS HAVE BEEN ESTABLISHED BASED ON THE FOURTH DIAGNOSIS. REFERENCE LIMIT (URL) OF TROPONIN, DEFINED THE 99TH UNIVERSAL DEFINITION OF MYOCARDIAL INFARCTION. THE UPPER HAS BEEN CONFIRMED THE DECISION THRESHOLD FOR [place] 99TH PERCENTILE = 51.4 PG/ML USED IN ISOLATION BUT SHOULD BE INTERPRETED IN CONJUNCTION Performing Lab: see note ML - [facility] LB XR chest 1V Reviewed date:10/25/2024 07:12:58 PM Interpretation: Performing Lab: Notes/Report: Source Facility: [facility] [address] [address] XRay Report Signed Patient: REVA RICHTER MR#: [id number] : 1955 Acct:[id number] Age/Sex: 69 / F ADM Date: 10/25/24 Loc: ER Attending Dr: Ordering Physician: Marine Pickett Date of Service: 10/25/24 Procedure(s): XR chest 1V Accession Number(s): [id number] cc: Re Curtis M.D.; Marine Pickett [place] [address] Patient Name: REVA RICHTER MRN: [facility]:[id number] date: 1955 Sex: F Assigned Patient Location: ED.MAIN Current Patient Location: ED.MAIN Accession/Order Number: [id number] Exam Date: 10/25/2024 15:50 Report Date: 10/25/2024 15:53 At the request of: MARINE PICKETT MD Procedure: XR chest 1V XR chest 1V 10/25/2024 3:41 PM SIGNS AND SYMPTOMS: chest pain PROTOCOL: Frontal radiograph of the chest COMPARISON: None FINDINGS: The trachea is midline. The heart and mediastinal structures are within normal limits. There is interstitial prominence with hazy airspace opacity near the left heart border. This may represent an infectious infiltrate. Other etiologies such as pulmonary edema should be considered. The bony thorax is intact. XR/XR chest 1V IMPRESSION: There is interstitial prominence with hazy airspace opacity near the left heart border. This may represent an infectious infiltrate. Other etiologies such as pulmonary edema should be considered. Impression dictated by: Hunter Becerra M.D. 10/25/2024 3:53 PM Dictation Location: [place] [address] Electronically authenticated by: [id number] Y Date: 10/25/2024 15:53 Dictated By: Hunter Becerra M.D. Signed By: 10/25/24 1555 DD/ 155 TD/TT: Ux Lead: [place] [id number] XRay Report Signed Patient: AUSTEN RICHTER MR#: [id number] : 1955 Acct:[id number] Age/Sex: 69 / F ADM Date: 10/25/24 Loc: ER Attending Dr: Ordering Physician: Marine Pickett Date of Service: 10/25/24 Procedure(s): XR chest 1V Accession Number(s): [id number] cc: Re Curtis M.D. ; Marine Pickett [place] [address] Patient Name: REVA RICHTER MRN: [facility]:[id number] date: 1955 Sex: F Assigned Patient Location: ED.MAIN Current Patient Loca tion: ED.MAIN Accession/Order Numb er: [id number] Exam Date: 10/25/2024 15:50 Report Date: 10/25/2024 15:53 At the request of: MARINE PICKETT MD Procedure: XR chest 1V XR chest 1V 10/25/2024 3:41 PM SIGNS AND SYMPTOMS: chest pain PROTOCOL: Frontal radiograph of the chest COMPARISON: None FINDINGS: The trachea is midli ne. The heart and mediastinal structures are within normal limits. There is interstitial prominence with hazy airspace opacity near the left heart border. This may represent an infectious infiltrate. Other etiologies suc h as pulmonary edema should be considered. The bony thorax is intact. X R/XR chest 1V IMPRESSION: There is interstitia l prominence with hazy airspace opacity near the left heart border. This m ay represent an infectious infiltrate. Other etiologies such as pulmonary ed tawana should be considered. Impression dictated by: Hunter Becerra M.D. 10/25/2024 3:53 PM Dictation Location: [place] [address] Electronically authenticated by: [id number] Y Date: 10/25/2024 15:53 Dictated By: Hunter Becerra M.D. Signed By: 10/25/24 1555 DD/ 1553 TD/TT: Ux Lead: Troponin I High Sensitivity Reviewed date:10/25/2024 07:12:58 PM Interpretation: Performing Lab: Notes/Report: [facility] , Troponin I High Sensitivity 7.5 4.0-51.3 pg/mL USED IN ISOLATION BUT SHOULD BE INTERPRETED IN CONJUNCTION DIAGNOSIS. HAS BEEN CONFIRMED THE DECISION THRESHOLD FOR [place] NOTE: HIGH-SENSITIVITY TROPONIN ASSAY IS NOT INTENDED TO BE UNIVERSAL DEFINITION OF MYOCARDIAL INFARCTION. THE UPPER 99TH PERCENTILE = 51.4 PG/ML PERCENTILE OF cTnI DISTRIBUTION IN A REFERENCE POPULATION, CUT-OFF POINTS HAVE BEEN ESTABLISHED BASED ON THE FOURTH REFERENCE LIMIT (URL) OF TROPONIN, DEFINED THE 99TH WITH OTHER DIAGNOSTIC AND CLINICAL INFORMATION. Performing Lab: see note ML - [facility] LB PROF 14(COMP METB) Reviewed date:10/25/2024 07:12:58 PM Interpretation: Performing Lab: Notes/Report: [facility] , Sodium 141 136-145 mmol/L Potassium 3.6 3.5-5.1 mmol/L Chloride 104 98-107 mmol/L Carbon Dioxide 29.7 21.0-32.0 mmol/L Anion Gap 10.9 Glucose 121 74-106 mg/dL Blood Urea Nitrogen 23.0 7.0-18.0 mg/dL Creatinine 1.30 0.55-1.02 mg/dL Estimated GFR ( Dot 49 >=60 mL/min/1.73m 2 Estimated GFR (Non- Queenie 41 >=60 mL/min/1.73m 2 BUN Creatinine Ratio 17.7 Calcium 9.1 8.5-10.1 mg/dL Bilirubin Total 0.4 0.2-1.0 mg/dL Aspartate Amino Transferase 16 15-37 U/L Alanine Aminotransferase 16 14-59 U/L Alkaline Phosphatase 99 46-116 U/L Total Protein 7.5 6.4-8.2 g/dL Albumin Level 3.8 3.4-5.0 g/dL Globulin 3.7 Albumin Globulin Ratio 1.0 Performing Lab: see note ML - [facility] LB TSH Reviewed date:09/06/2024 08:15:04 PM Interpretation: Performing Lab: Notes/Report: [facility] , Thyroid Stimulating Hormone 1.798 0.358-3.740 uIU/mL Performing Lab: see note ML - [facility] LB T4 Reviewed date:09/06/2024 08:15:04 PM Interpretation: Performing Lab: Notes/Report: [facility] , T4 Thyroxine 8.50 4.80-13.90 ug/dL Performing Lab: see note ML - [facility] LB PROF 14(COMP METB) Reviewed date:09/06/2024 08:15:04 PM Interpretation: Performing Lab: Notes/Report: [facility] , Sodium 142 136-145 mmol/L Potassium 4.5 3.5-5.1 mmol/L Chloride 105 98-107 mmol/L Carbon Dioxide 27.9 21.0-32.0 mmol/L Anion Gap 13.6 Glucose 101 74-106 mg/dL Blood Urea Nitrogen 21.0 7.0-18.0 mg/dL Creatinine 0.75 0.55-1.02 mg/dL Estimated GFR ( Dot >60 >=60 mL/min/1.73m 2 Estimated GFR (Non- Queenie >60 >=60 mL/min/1.73m 2 BUN Creatinine Ratio 28.0 Calcium 9.0 8.5-10.1 mg/dL Bilirubin Total 0.5 0.2-1.0 mg/dL Aspartate Amino Transferase 15 15-37 U/L Alanine Aminotransferase 18 14-59 U/L Alkaline Phosphatase 86 46-116 U/L Total Protein 7.4 6.4-8.2 g/dL Albumin Level 3.7 3.4-5.0 g/dL Globulin 3.7 Albumin Globulin Ratio 1.0 Performing Lab: see note ML - [facility] LB LIPID PROFILE Reviewed date:09/06/2024 08:15:04 PM Interpretation: Performing Lab: Notes/Report: [facility] , Triglycerides 68 <=150 mg/dL Cholesterol 174 <=200 mg/dL HDL Cholesterol 79 40-60 mg/dL > or =60 mg/dl - LOW CARDIOVASCULAR RISK <40 mg/dl - HIGH CARDIOVASCULAR RISK LDL Cholesterol Calculated 82.0 <100 mg/dl OPTIMAL 130-159 mg/dl BORDERLINE HIGH 160-189 mg/dl HIGH >190 mg/dl VERY HIGH 100-129 mg/dl NEAR OR ABOVE OPTIMAL VLDL CHOLESTEROL 13.6 Chol HDL Ratio 2.2 3.3 - 4.4 LOW RISK >11.0 HIGH RISK 4.4 - 7.1 AVERAGE RISK 7.1 - 11.0 MODERATE RISK Performing Lab: see note ML - [facility] LB GLYCOHEMOGLOBIN A1C Reviewed date:09/06/2024 08:15:04 PM Interpretation: Performing Lab: Notes/Report: [facility] , Glycohemoglobin A1C 5.9 4.5-6.2 % ADA THERAPEUTIC TARGET < 7.0 > 7.0 ACTION SUGGESTED ADA RECOMMENDED LIMIT 4.0 - 6.0 Estimated Average Glucose 123 Performing Lab: see note ML - [facility] LB FREE T3 Reviewed date:09/06/2024 08:15:04 PM Interpretation: Performing Lab: Notes/Report: [facility] , Free T3 3.40 2.18-3.98 pg/mL Performing Lab: see note ML - [facility] LB CBC AUTO DIFF Reviewed date:09/06/2024 08:15:04 PM Interpretation: Performing Lab: Notes/Report: [facility] , White Blood Count 4.4 4.0-11.0 10 3/uL Red Blood Count 4.33 4.20-5.40 10 6/uL Hemoglobin 12.9 12.0-16.0 g/dL Hematocrit 38.7 36.0-48.0 % Mean Corpuscular Volume 89.4 81.0-99.0 fL Mean Corpuscular Hemoglobin 29.8 26.7-34.0 pg Mean Corpuscular HGB Conc 33.3 29.9-35.2 g/dL Red Cell Distribution Width 12.7 11.0-15.0 % Platelet Count 160 150-450 10 3/uL Mean Platelet Volume 11.1 9.5-13.5 fL Neutrophils Percent Auto 59.3 43.0-75.0 % Lymphocytes Percent Auto 31.7 20.5-60.0 % Monocytes Percent Auto 7.4 1.7-12.0 % Eosinophils Percent Auto 1.4 0.9-7.0 % Basophils Percent Auto 0.0 0.2-2.0 % Immature Granulocytes Pct Auto 0.2 0.0-0.5 % Neutrophils Absolute Auto 2.6 1.4-6.5 10 3/uL Lymphocytes Absolute Auto 1.4 1.2-3.8 10 3/uL Monocytes Absolute Auto 0.3 0.3-0.8 10 3/uL Eosinophils Absolute Auto 0.1 0.0-0.7 10 3/uL Basophils Absolute Auto 0.0 0.0-0.1 10 3/uL Immature Granulocytes Abs Auto 0.01 0.00-0.03 10 3/uL Performing Lab: see note ML - [facility] LB ECG 12 lead Reviewed date:10/27/2024 06:24:12 PM Interpretation: Performing Lab: Notes/Report: Source Facility: [place] [address] [place] [address] Electrocardiograph Report Signed Patient: REVA RICHTER MR#: [id number] : 1955 Acct:[id number] Age/Sex: 69 / F ADM Date: 10/25/24 Loc: ER Attending Dr: Ordering Physician: Marine Pickett Date of Service: 10/25/24 Procedure(s): ECG 12 lead Accession Number(s): [id number] cc: [facility] Test Date: 2024-10-25 Pat Name: REVA RICHTER Department: Room: - Gender: Female Vice President Digital Strategist: : 1955 Requested By: RE CURTIS Order Number: [id number] Reading MD: CARLA HAUSER Measurements Intervals [place] Rate: 72 P: 64 CO: 196 QRS: 55 QRSD: 82 T: 56 QT: 392 QTc: 417 Interpretive Statements 1100 Sinus rhythm 9110 normal ECG No previous ECG available for comparison Electronically Signed On 10-27-2024 9:03:00 EDT by CARLA HAUSER Dictated By: Carla Hauser M.D. Signed By: 10/27/24 0903 DD/ 1544 TD/TT: Ux Lead: [place] [address] Electrocardiograph Report Signed Patient: AUSTEN RICHTER MR#: [id number] : 1955 Acct:[id number] Age/Sex: 69 / F ADM Date: 10/25/24 Loc: ER Attending Dr: Ordering Physician: Marine Pickett Date of Service: 10/25/24 Procedure(s): ECG 12 lead Accession Number(s): [id number] cc: [facility] Test Date: 2024-10-25 Pat Name: REVA WOODS Department: 32 Room: - Gender: Female Vice President Digital Strategist: : 1955 Cheng esteharshad By: RE CURTIS Order Number: [id number] Reading MD: CARLA HAUSER Measurements Intervals [place] Rate: 72 P: 64 CO: 196 QRS: 55 QRSD: 82 T: 56 QT: 392 QTc: 417 Interpretive Statements 1100 Sinus rhythm 9110 normal ECG No previous ECG avai lable for comparison Electronically Nevaeh d On 10-27-2024 9:03:00 EDT by CARLA HAUSER Dictated By: Carla Hauser M.D. Signed By: 10/27/24902 DD/ 1544 TD/TT: Ux Lead: Reason For Referral No Information Medications Medication SIG (Take, Route, Frequency, Duration) Notes Start Date End Date Status Norvasc 10 MG 1 tablet Orally Once a day for 30 days 09/23/2024 Active Social History Tobacco Use: Social History Observation Description Date Details (start date - stop date) Never Smoker NA - NA Tobacco Use/Smoking Question Answer Notes Patient is a nonsmoker Alcohol Screen (Audit-C) Question Answer Notes Did you have a drink contain ing alcohol in the past year? Yes How often did you have 6 or more drinks on one occasion in the past year? Never (0 point) How many drinks did you have on a typical day when you were drinking in the past year? 1 or 2 drinks (0 point) How often did you have a dri nk containing alcohol in the past year? Less than monthly (1 point) Points 1 Interpretation Negative AUDIT-C (Standard) Question Answer Notes Did you have a drink containing alcohol in the p ast year? No Points 0 Interpretation Negative Problems Problem Type SNOMED Code ICD Code Onset Dates Problem Status W/U Status Risk Notes Problem Hepatitis C (47041569) Hepatitis C (B19.20) Active confirmed Problem Eczema (46932018) Eczema (L30.9) Active confirmed Problem Diverticular disease of colon (481235831) Diverticulosis (K57.90) Active confirmed Problem Gastritis (0024191) Gastritis (K29.70) Active confirmed Problem Pruritus (187826354) Pruritus (L29.9) Active confirmed Problem Overweight (148989306) Over weight (E66.3) Active confirmed Problem Nevus (8827309849) Nevus (D22.9) Active confirmed Problem History of infectious disease (048544166) History of hepatitis (Z86.19) Active confirmed Problem Essential hypertension (61455790) Essential Hypertension (I10) Active confirmed Vital Signs Heart Rate 93 /min 10/25/2024 Temperature 97.8 degrees Fahrenheit 10/25/2024 Blood pressure diastolic 84 mm Hg 10/25/2024 Height 65 in 10/25/2024 Blood pressure systolic 146 mm Hg 10/25/2024 Weight 162.2 lbs 10/25/2024 BMI 26.99 kg/m2 10/25/2024 Procedures Procedure Date Ordered Date Performed Result Body Sit e EKG w Interp & Report - performed 10/25/2024 N/ A CARDIO Stress Test - Treadmill Exercise 10/25/2024 N/A Encounters Encounter Location Date Provider Diagnosis [facility] [address] [place] [address] 08/09/2024 Haile y [facility] [address] [place] [address] 08/23/2024 Haile Hoy Essential Hypertensi on I10 [facility] [address] [place] [address] 09/06/2024 Haile [facility] [address] [place] [address] 09/23/2024 Haile Hoy Essential Hypertensi on I10 [facility] [address] [place] [address] 10/26/2024 Haile Hoy Essential Hypertensi on I10 [facility] [address] [place] [address] 09/05/2024 Haile Hoy Essential Hypertensi on I10 ; Over weight E66.3 ; Hepatitis C B19.20 and Eczema L30.9 [facility] [address] [place] [address] 10/25/2024 Eileenbridget Espinosa Essential Hypertensi on I10 and Chest discomfort R07.89 [facility] [address] [place] [address] 09/23/2024 Haile Curtis Essential Hypertensi on I10 Assessments Encounter Date Diagnosis (ICD Code) Assessment Notes Treatment Notes Treatment Clinical Notes Section Notes 09/05/2024 Essential Hypertension (ICD-10 - I10) 09/05/2024 Over weight (ICD-10 - E66.3) 09/23/2024 Essential Hypertension (ICD-10 - I10) 10/25/2024 Essential Hypertension (ICD-10 - I10) 10/25/2024 Chest discomfort (ICD-10 - R07.89) EKG stress test to ER for eval EKG here possible [place] 08/23/2024 Essential Hypertension (ICD-10 - I10) 09/23/2024 Essential Hypertension (ICD-10 - I10) 10/26/2024 Essential Hypertension (ICD-10 - I10) 09/05/2024 Hepatitis C (ICD-10 - B19.20) 09/05/2024 Eczema (ICD-10 - L30.9) Plan Of Treatment Pending Test Test Name Order Date CMP (COMPLETE METABOLIC PANEL) 4 HEMOGLOBIN A1C (GLYCO) 04/23/2023 HEMOGLOBIN A1C (GLYCO) 09/05/2024 IRON, TOTAL 09/05/2024 IRON, TOTAL 04/23/2023 LIPID PANEL (CHOL/TRIG/HDL/LDL) 04/23/19 24 LIPID PANEL (CHOL/TRIG/HDL/LDL) 09/06/19 25 CBC WITH DIFF 04/23/2023 VITAMIN D, 25 LEVEL (TOTAL) 04/23/2023 MAMM Mammograms CAD 04/23/2023 EKG w Interp & Report - performed 2024 CARDIO Stress Test - Treadmill Exercise 10/25/2024 THYROID PANEL (T4/TSH/FREE T3) 5 THYROID PANEL (T4/TSH/FREE T3) 4 MM screening mammo BI 09/05/2024 CMP (COMP MET WRIGHT) w/eGFR CKD-EPI 2024 CBC WITH DIFF 09/05/2024 Next Appt Details Provider Name:Haile Mckeon Dewayne, 10:00:00 AM, [address] [facility], [place], [address], Insurance Providers Payer Name Payer Address Payer Phone Subscriber Number Group Number Insured Name Patient Relationship to Insured Coverage Start Date Coverage End Date [place] [address] [place] [address] [id number] Reva Richter Self - patient is the insured [employer] SUPPLEMENT [address] [address] [place], [place] [id number] Reva Richter Self - patient is the insured Medical (General) History Medical History History ICD Code Diverticulosis K57.90 Gastritis K29.70 Over weight E66.3 Nevus D22.9 Pruritus L29.9 History of hepatitis Z86.19 Eczema L30.9 Hepatitis C B19.20 Essential Hypertension I10 Surgical History Surgery Date(Month/Year) right hand surgery
--- OUTSIDE RECORDS SUMMARY | 2024-11-02 08:53 | XMS_ITS | Clinical Summary ---
Author Organization [facility] Address [address] [place] [address] Care Team Providers Care Textile Bag Sewer Name Role Phone Unavailable Primary Care Provider Unavailabl e Social History Tobacco Use Types Packs/Day Years Used Date Smoking Tobacco: Never Assessed Comments Unknown Sex and Gender Information Value Date Recorded Sex Assigned at Not on file Legal Sex Female 6:51 PM EDT Gender Identity Not on file Sexual Orientation Not on file Plan of Treatment Not on file
--- OUTSIDE RECORDS SUMMARY | 2024-11-02 09:13 | XMS_ITS | CCD ---
Author Organization [facility] Care Team Providers Care Umbrella Tipper Name Role Phone Re Buchanan Primary Care Provider [phone] Re Buchanan Attending Provider Marilee Choe Unavailable [...] Consulting Unavailable Re Buchanan Primary Care Physician [phone] HUGO, Damaso Gonzalez Attending Unavailable NILL, Damaso Gonzalez Attending Unavailable NILL, Damaso Gonzalez Attending Unavailable HoyRe Referring Unavailable NILL, Damaso Gonzalez Admitting Unavailable NILL, Damaso Gonzalez Attending Unavailable NILL, Damaso Gonzalez Attending Unavailable Unavailable Unavailable Unavailable Allergies Allergy Classification Reported Allergen(s) Allergy Type Date of Onset Reaction(s) Facility (1 source) Lisinopril Drug Allergy Unknown [facility] Other (5 sources) Metoprolol; Translations: [metoprolol] Drug Allergy Nausea (finding) [facility] (1 source) No Known Medication Allergies; Translations: [No Known Medication Allergies] Propensity to adverse reactions (disorder) [facility] Repository Medications Current Medications Medication Drug Class(es) [...] lesion left cheek and skin tag left rastafari; pathology on cheek lesion consistent with skin [...] SARS-CoV-2 (COVID-19) mRNA-1273 vaccine 07/03/2020 Recorded Normal [facility] Comment on above: Result Comment: Elec tronically Signed By: HUGO SAXENA, Damaso Gonzalez\.br\Date and Time Signed: 12/15/23 14:02 EDT Surgical Pathology Reporton 12-11-2023 Surgical Pathology Report [address] [place] [address]- Surgical Pathology Report Collected Date/Time: 12/08/2023 14:33 [...] cm in greatest dimension, totally submitted. (MG) MSG:[facility] Microscopic Description Microscopic examination performed unless gross only specified. Normal [facility] Comment on above: Performed By: #### [id number] #### [facility] Laboratory [address] [place] [address] Ambulatory Visit Summaryon 0 12-08-2023 Ambulatory Visit [...] EDT With: HUGO SAXENA, Damaso Gonzalez Where: [address], [address], [place] [id number]- Medications What How Much When Instructions Unchanged [...] for choosing us for your care. Normal [facility] General Surgery Office/Clini c Noteon 12-08-2023 General [...] Ordered: Exc Face-Mm B9+Ligia 0.5 < [place]m [id number] Office Visit No Charge Pathology Tissue Exam Remove skin tags 15 or less 01583 2. Skin tag (L91.8: Other hypertrophic disorders [...] (COVID-19) mRNA-1273 vaccine 07/03/2020 Recorded Normal [facility] Comment on above: Result Comment: Elec tronically [...] for choosing us for your care. Normal [facility] Physician Referralon 024 Physician Referral [id number] #1.00TIFF Normal [facility] Physician Referralon 024 Physician Referral [id number] #1.00TIFF Normal [facility] CBC AUTO DIFFon 02-10-2022 BASO # 0.0 103/ul Normal 0.0-0.1 [facility] Comment on above: Performed By: #### C BC #### [facility] [address] [place] [address] Dr. Martha Spain Basophils/100 WBC (Bld) 0.3 % Normal 0.2-2.0 [facility] Comment on above: Performed By: #### C BC #### [facility] [address] [place] [address] Dr. Martha Spain EO # 0.1 103/ul Normal 0.0-0.7 [facility] Comment on above: Performed By: #### C BC #### [facility] [address] [place] [address] Dr. Martha Spain Eosinophils/100 WBC (Bld) 1.1 % Normal 0.9-7.0 [facility] Comment on above: Performed By: #### C BC #### [facility] [address] [place] [address] Dr. Martha Spain Erythrocyte distribution width (RBC) [Ratio] 12.8 % Normal 11.0-15.0 [facility] Comment on above: Performed By: #### C BC #### [facility] [address] [place] [address] Dr. Martha Spain Hematocrit (Bld) [Volume fraction] 41.2 % Normal 36.0-48.0 [facility] Comment on above: Performed By: #### C BC #### [facility] [address] [place] [address] Dr. Martha Spain Hemoglobin (Bld) [Mass/Vol] 13.5 g/dL Normal 12.0-16.0 [facility] Comment on above: Performed By: #### C BC #### [facility] [address] [place] [address] Dr. Martha Spain IG # 0.02 10e3/ul Normal 0.00-0.03 [facility] Comment on above: Performed By: #### C BC #### [facility] [address] [place] [address] Dr. Martha Spain IG % 0.3 % Normal 0.0-0.5 [facility] Comment on above: Performed By: #### C BC #### [facility] [address] [place] [address] Dr. Martha Spain LYMPH # 1.6 103/ul Normal 1.2-3.8 [facility] Comment on above: Performed By: #### C BC #### [facility] [address] [place] [address] Dr. Martha Spain Lymphocytes/100 WBC (Bld) 24.3 % Normal 20.5-60.0 [facility] Comment on above: Performed By: #### C BC #### [facility] [address] [place] [address] Dr. Martha Spain MANUAL DIFF REQ NO Normal [facility] Comment on above: Performed By: #### C BC #### [facility] [address] [place] [address] Dr. Martha Spain MCH (RBC) [Entitic mass] 29.3 pg Normal 26.7-34.0 [facility] Comment on above: Performed By: #### C BC #### [facility] [address] [place] [address] [address] Martha Spain MCHC (RBC) [Mass/Vol] 32.8 g/dL Normal 29.9-35.2 [facility] Comment on above: Performed By: #### C BC #### [facility] [address] [place] [address] [address] Martha Spain MCV (RBC) [Entitic vol] 89.6 fL Normal 81.0-99.0 [facility] Comment on above: Performed By: #### C BC #### [facility] [address] [place] [address] Dr. Martha Spain MONO # 0.5 103/ul Normal 0.3-0.8 [facility] Comment on above: Performed By: #### C BC #### [facility] [address] [place] [address] Dr. Martha Spain Monocytes/100 WBC (Bld) 7.4 % Normal 1.7-12.0 [facility] Comment on above: Performed By: #### C BC #### [facility] [address] [place] [address] Dr. Martha Spain NEUT # 4.4 103/ul Normal 1.4-6.5 [facility] Comment on above: Performed By: #### C BC #### [facility] [address] [place] [address] Dr. Martha Spain Neutrophils/100 WBC (Bld) 66.6 % Normal 43.0-75.0 [facility] Comment on above: Performed By: #### C BC #### [facility] [address] [place] [address] [address] Martha Spain Platelet mean volume (Bld) [Entitic vol] 10.8 fL Normal 9.5-13.5 [facility] Comment on above: Performed By: #### C BC #### [facility] [address] [place] [address] [address] Martha Spain PLT 158 103/ul Normal 150-450 [facility] Comment on above: Performed By: #### C BC #### [facility] [address] [place], [place] [address] Dr. Martha Spain RBC 4.60 106/ul Normal 4.20-5.40 [facility] Comment on above: Performed By: #### C BC #### [facility] [address] [place], [place] [address] Dr. Martha Spain WBC 6.7 103/ul Normal 4.0-11.0 [facility] Comment on above: Performed By: #### C BC #### [facility] [address] [place], [place] [address] ABD/PELV W CONon [...] LYNNETTE LEGGETT Date: 2022-02-10 11:03 Normal [facility] PROF 14(COMP METB)on 02-10- 022 Albumin [Mass/Vol] 4.0 g/dL Normal 3.4-5.0 [facility] Comment on above: Performed By: #### C MP #### [facility] [address] [place] [address] Dr. Martha Spain Albumin/Globulin [Mass ratio] 1.1 {ratio} Normal [facility] Comment on above: Performed By: #### C MP #### [facility] [address] [place] [address] [address] Martha Spain ALP [Catalytic activity/Vol] 87 U/L Normal 46-116 [facility] Comment on above: Performed By: #### C MP #### [facility] [address] [place] [address] Dr. Martha Spain ALT [Catalytic activity/Vol] 44 U/L Normal 14-59 [facility] Comment on above: Performed By: #### C MP #### [facility] [address] [place] [address] Dr. Martha Spain Anion gap [Moles/Vol] 9.5 mmol/L Normal [facility] Comment on above: Performed By: #### C MP #### [facility] [address] [place] [address] Dr. Martha Spain AST [Catalytic activity/Vol] 30 U/L Normal 15-37 [facility] Comment on above: Performed By: #### C MP #### [facility] [address] [place] [address] Dr. Martha Spain Bilirubin [Mass/Vol] 0.7 mg/dL Normal 0.2-1.0 [facility] Comment on above: Performed By: #### C MP #### [facility] [address] [place] [address] Dr. Martha Spain Calcium [Mass/Vol] 9.2 mg/dL Normal 8.5-10.1 [facility] Comment on above: Performed By: #### C MP #### [facility] [address] [place] [address] Dr. Martha Spain Chloride [Moles/Vol] 101 mmol/L Normal 98-107 [facility] Comment on above: Performed By: #### C MP #### [facility] [address] [place] [address] Dr. Martha Spain CO2 [Moles/Vol] 31.1 mmol/L Normal 21.0-32.0 [facility] Comment on above: Performed By: #### C MP #### [facility] [address] [place] [address] [address] Martha Spain Creatinine [Mass/Vol] 0.84 mg/dL Normal 0.55-1.02 [facility] Comment on above: Performed By: #### C MP #### [facility] [address] [place] [address] [address] Martha Spain EGFR-AF TURKISH >60 Normal >=60 [facility] Comment on above: Performed By: #### C MP #### [facility] [address] [place] [address] [address] Martha Spain EGFR-NON AF TURKISH >60 Normal >=60 [facility] Comment on above: Performed By: #### C MP #### [facility] [address] [place] [address] [address] Martha Spain Globulin (S) [Mass/Vol] 3.8 g/dL Normal [facility] Comment on above: Performed By: #### C MP #### [facility] [address] [place] [address] [address] Martha Spain Glucose [Mass/Vol] 110 mg/dL Critically high 74-106 [facility] Comment on above: Performed By: #### C MP #### [facility] [address] [place] [address] Dr. Martha Spain Potassium [Moles/Vol] 4.6 mmol/L Normal 3.5-5.1 [facility] Comment on above: Performed By: #### C MP #### [facility] [address] [place] [address] [address] Martha Spain Protein [Mass/Vol] 7.8 g/dL Normal 6.4-8.2 [facility] Comment on above: Performed By: #### C MP #### [facility] [address] [place] [address] Dr. Martha Spain Sodium [Moles/Vol] 137 mmol/L Normal 136-145 [facility] Comment on above: Performed By: #### C MP #### [facility] [address] [place], [place] [address] Dr. Martha Spain Urea nitrogen [Mass/Vol] 14.0 mg/dL Normal 7.0-18.0 [facility] Comment on above: Performed By: #### C MP #### [facility] [address] [place], [place] [address] Dr. Martha Spain Urea nitrogen/Creatinin e [Mass ratio] 16.7 mg/mg Normal [facility] Comment on above: Performed By: #### C MP #### [facility] [address] [place], [place] [address] Dr. Martha Spain COVID Quick Testingon 2021 Result Negative [facility] Other MRI KNEE LT WO CONon MRI [...] by: LYNNETTE LEGGETT Date: 2021-10-15 10:38 Normal [facility] MM screening mammo BI w/CADo n 07-31-2020 MM screening mammo BI w/CAD [facility] [place] [address] [place], [place] [id number] Mammography Report Signed Patient: Reva Richter MR#: [id number] : 1955 Acct:[id number] Age/Sex: 65 / F ADM Date: 07/31/20 Loc: [place] Room: Type: [facility] Attending Dr: Re Buchanan MD Ordering Provider: [...] Varghese Copeland M.D.07/31/2020 12:01 PM Dictation Location: [facility] Transcribed By: [facility] 07/31/20 1201 Dictated By: Varghese Copeland DO 07/31/20 1157 Signed By: 07/31/20 1201 [facility] Vital Signs Date Time Vital Sign Value Performing Clinician Facility 08-24-2023 15:34-0400 Diastolic blood pressure 101 mm[Hg] Damaso GARCIAL [facility] [place] 08-24-2023 15:34-0400 Heart rate 65 /min Damaso NILL [facility] [place] 08-24-2023 15:34-0400 Mean blood pressure 128 mm[Hg] Damaso NILL [facility] [place] 08-24-2023 15:34-0400 Systolic blood pressure 181 mm[Hg] Damaso NILL [facility] 08-24-2023 15:09-0400 Blood Pressure Location Damaso NILL [facility] 08-24-2023 15:09-0400 Diastolic blood pressure 107 mm[Hg] Damaso NILL [facility] 08-24-2023 15:09-0400 Heart rate 61 /min Damaso NILL [facility] 08-24-2023 15:09-0400 Respiratory rate 16 /min Damaso NILL [facility] 08-24-2023 15:09-0400 Systolic blood pressure 197 mm[Hg] Damaso NILL [facility] 11-22-2021 10:35-0400 Body height 165.1 cm Marilee Choe Other [facility] Other 11-22-2021 10:35-0400 Body mass index (BMI) [Ratio] 25.79 kg/m2 Marilee Choe Other [facility] Other 11-22-2021 10:35-0400 Body temperature 96 [degF] Marilee Choe Other [facility] Other 11-22-2021 10:35-0400 Body weight 70.31 kg Marilee Choe Other [facility] Other 11-22-2021 10:35-0400 Respiratory rate 18 /min Marilee Choe Other [facility] Other 11-22-2021 10:35-0400 SaO2% (BldA) [Mass fraction] 97 % Marilee Choe Other [facility] Other Encounters Encounter Date Encounter Type Care Provider Facility Start: 12-15-2023 End: 12-15-2023 ambulatory Damaso R NILL Facility: [facility] Start: 12-15-2023 End: 12-15-2023 Patient encounter procedure Damaso R [facility]ILL [facility] Start: 12-08-2023 End: 12-08-2023 ambulatory Damaso R NILL Facility:[facility] Start: 12-08-2023 End: 12-08-2023 Lab Drop off Damaso R NILL [facility] Start: 12-08-2023 End: 12-08-2023 ambulatory Damaso R NILL Facility: [facility] Start: 12-08-2023 End: 12-08-2023 Patient encounter procedure Damaso R NILL [facility] Start: 09-08-2023 ambulatory Damaso R NILL Facility : [place] Start: 08-24-2023 End: 08-24-2023 ambulatory Damaso R NILL Facility: [place] Start: 08-24-2023 End: 08-24-2023 Patient encounter procedure Damaso R NILL [facility] [place] Start: 08-20-2023 ambulatory Damaso NILL Facility:[facility] Start: 02-10-2022 End: 02-11-[address] RE BUCHANAN Facility:[facility] Start: 11-22-2021 End: 11-22-2021 ambulatory Marilee Choe Other [facility] Other Start: 11-22-2021 Office outpatient ne w 20 minutes Marilee Choe [facility] Start: 10-15-2021 End: 10-16-[address] RE BUCHANAN Facility:[facility] Start: 10-10-2021 End: 10-11-[address] RE BUCHANAN Facility:[facility] Start: 07-31-2020 End: 07-31-2020 Patient encounter procedure Re Buchanan [facility] Procedures Date Procedure Procedure Detail Performing Clinician Start: 09-26-2020 Colonoscopy Damaso DE LA FUENTE Start: 07-31-2020 Screening mammograph y of bilateral breasts Re Buchanan Immunizations Immunization Date Immunization Notes Care Provider [facility] 04-10-2021 SARS-CoV-2 (COVID-19 ) mRNA-[address] [facility] 08-03-2020 SARS-CoV-2 (COVID-19 ) mRNA-1273 vaccine Damaso ARIAS [facility] 07-03-2020 SARS-CoV-2 (COVID-19 ) mRNA-1273 vaccine Damaso ARIAS [facility] 06-19-2016 hepatitis B vaccine, adult dosage Marilee Choe Other [facility] Other 06-11-2016 hepatitis A vaccine, pediatric/adolescent dosage, 2 dose schedule Marilee Choe Other [facility] Other Payers Date Payer Category Payer Medicare [id number] 2.1 [id number] 1959 Medicare [id number] [id number]. [id number] 1955 Unknown [id number] 2.16.84 [id number] 1955 Unknown [id number] 2.16.84 [id number] 1955 Unknown [id number] 2.16.84 [id number] 1955 Unknown [id number] 2.16.8 [id number] 1955 Unknown [id number] 2.16.8 [id number] 1955 Unknown [id number] 2.16.8 [id number] 1955 Unknown [id number] 2.16.8 [id number] 1955 Unknown [id number] 2.16.8 [id number] Self-pay Self Pay [id number] Unknown Self Pay [id number] Social History Date Type Detail [facility] Start: 1955 Sex Assigned At Female F [facility] Sex Assigned At [facility] Start: 08-24-2023 Tobacco smoking status Never s moked tobacco (finding) [facility] Tobacco smoking status Never [facility] Goals Date Patient Goal Desired Activity /State Functional Status Date Assessment Result Facility 12-08-2023 Functional Status N/A [facility] 08-24-2023 Functional Status N/A [facility] Clinical Note 08-24-2023 Note Date & Type Note Facility 08-24-2023 Note Chief Complaint consultation for nevus HPI Staff 68 year old female presents on consultation from Dr. Buchanan for face nevus. Patient reports small lesion to right nostril, one to left cheek and one to left rastafari area. History of Present Illness 68 yo [...] Recorded SARS-CoV-2 (COVID-19) mRNA-1273 vaccine 07/03/2020 Recorded [facility] Comment on above: Result Comment: Elec tronically [...] s/s of dehydration or severe abdominal pain. [facility] Other Clinical Note 10-10-2021 Note Date & [...] authenticated by: LEATHA HURLEY Date: 2021-10-10 11:39 [facility] Evaluation + Plan note Note Date & Type Note Facility Evaluation + Plan note Future Appointments Appointment Date:09/08/2023 03:00:00 PM Scheduled Provider:Damaso ARIAS MD Location:[facility] Appointment Type: Procedure 30 [facility] [place] Evaluation + Plan note Note Date & Type Note Facility Evaluation + Plan note Future Appointments Appointment Date:12/15/2023 02:00:00 PM Scheduled Provider:Damaso ARIAS MD Location:[facility] Appointment Type: Established 15 [facility] History general Narrative - Reported Note Date & Type Note Facility History general Narrative - Reported Type Medical History Hepatitis C from [place] blood transfusion Medical History Hypertension Surgical History cyst right hand-calcium deposit 1985 Hospitalization History see above [facility] Other Hospital course Narrative Note Date & Type Note Facility Hospital course Narrative No data available for this section [facility] [place] [facility] Discharge instructions Note Date & Type Note Facility Hospital Discharge instructions No data available for this section [facility] [place] Progress note Note Date & Type Note Facility Progress note No data available for this section [facility] [place] Advance Directives No Advanced Directives Records Found [...] section and content) DATE CREATED AUTHOR 08/11/2020 [facility] DATE CREATED AUTHOR AUTHOR'S ORGANIZ ATION 02/16/2022 [facility] DATE CREATED AUTHOR AUTHOR'S ORGANIZ ATION 12/13/2023 [facility] DATE CREATED AUTHOR AUTHOR'S ORGANIZ ATION 12/16/2023 [facility] DATE CREATED AUTHOR AUTHOR'S ORGANIZ ATION 12/17/2023 [facility] REASON FOR VISIT (unrecogniz ed section and content) NANDO VAZQUEZ, H/Harris, MICKY EXPSO URE Patient Care team informatio n (unrecognized section and content) Personnel Name: Re Buchanan MD Address: Address: [address] [place] [address] Personnel Name: Re Buchanan MD Address: Address: [address] [place] [address] Personnel Name: Re Buchanan MD Address: Address: [address] [place] [address] Personnel Name: Re Buchanan MD Address: Address: [address] [place] [address], [place] [address] FOR RECORDS PERTAINING TO PATIENTS WHO ARE [...] BE BASED ON THE PRIMARY CLINICAL RECORDS. [facility]. provides no warranty or guarantee of the accuracy or completeness of information in this document.
--- NOTE | 2024-11-02 10:42 | PC.NURSE ---
Nursing Note Cardiac Stress Test Reviewed: Medication, allergies and patient history reviewed. Stress Test: [x ] Patient tolerated stress test well. [ ] Patient unable to tolerate walking on treadmill. Switched to Lexiscan stress test. [x ] No chest pain noted per patient [ ] Chest pain that resolved prior to leaving stress lab. [x ] No dyspnea noted. [ ] Dyspnea that resolved prior to leaving stress lab. [x ] Patient left stress lab asymptomatic and hemodynamically stable. [ ] Patient taken to the Emergency Room due to non-resolving symptoms following stress test. [x ] Patient achieved target heart rate. [ ] Patient unable to achieve target heart rate. [ ] Aminophylline administered as reversal agent to Lexiscan (Regadenoson). [ ] Nitro administered. Nursing Comments:
--- NOTE | 2024-11-02 12:59 | PM.STRESS ---
Stress Test Stress Test Allergies Allergy/AdvReac Type Severity Reaction Status Date / Time No Known Drug Allergies Allergy Verified 10/25/24 15:26 Requesting physician: YASMIN DAWSON Procedure: Routine treadmill stress test General Information: Reason for Stress Test: [Chest pain] Cardiac History and Risk Factors: [HTN] Resting 12 - Lead Electrocardiogram: Normal sinus rhythm Possible left atrial enlargement Boderline ECG Stress Test: Protocol:[Cirilo protocol;exercised for 4:42 minutes, stage 2 of the Cirilo protocol, 7 METS] Exercise Capacity: [Average] Blood Pressure Response: [Normal] Rhythm: [Sinus, PVCs] ST - Response: [No ST T wave abnormalities] Patient Response: [No chest pain] Interpretation: 1. No ischemic EKG changes on Treadmill stress test 2. Infrequent premature ventricular beats 3. Rincon Treadmill score is +4.4; estimated 1 year mortality is 1.0-1.1%, risk category is moderate risk. Angigraphy: may be indicated.
== END 2024-11-02 08:50 | disposition home or self-care (01) ==
LOC: CARD 08:50
PROVIDERS: PCP Family Medicine; Visit Provider Nurse Practitioner Family
DX: R07.89 Other chest pain (principal)
CPT/HCPCS: 93017

== ENCOUNTER 2024-11-03 21:22 | Emergency (ER) | payer MEDICARE, OTHER, SELFPAY ==
--- OUTSIDE RECORDS SUMMARY | 2020-05-02 09:20 | XMS_ITS | Continuity of Care Document ---
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 Role Phone Jorgito Aponte MD Unavailable Unavailable Allergies, Adverse Reactions, Alerts Substance Reaction Status Criticality No Known Allergies Active No Inform ation Medications Medication Instructions Dosage Effective Dates (start - stop) Status Comments amlodipine 5 mg tablet take 1 tablet by oral route every day 5 MG - Active irbesartan 150 mg tablet take 1 tablet by oral route every day - Active Procedures Procedure Date Ophthal DX Image Post Retina I And R Uni Or Bi Eye Exam Established Patient Comprehensi ve 1 Or More Visits Fluorescein Angiography With I And R Uni Or Bi Fundus Photography With I And R Pam l Ophthalmoscopy Extended With Retinal Dra wing Aleman I And R Initial Uni Ophthalmoscopy Extended With Retinal Dra wing Aleman I And R Initial Uni OFFICE/OUTPATIENT VISIT, [facility] Advance Directives Directive Yes / No Effective Date File Name No Information Encounters Encounter Description Practice Location Reason(s) For Visit Diagnoses Date Provider Providers Copied on Encounter [facility] , [address], [place], [address], [place] tel:[phone] RVA Mago macular pucker (chief complaint) Puckering of macula, left eyeBilateral vitreous detachment of eyesAge-relate d nuclear cataract, bilateral Fadi Bull. [address], [address], [place], [place], [id number], [place]. tel:[phone] Referring Provider: Jorgito Kelley, [address], [place], [address]. tel:[phone] OFFICE/OUTPAT IENT VISIT, [facility] , [address], [place], [address], [place] tel:[phone] RVA Mago macular changes (chief complaint)f lutter spot in vision (chief complaint) Puckering of macula, left eyeBilateral vitreous detachment of eyesAge-relate d nuclear cataract, bilateral Org Pearl. [address], [address], [place], [place], [id number], [place]. tel:[phone] Referring Provider: Marlee Van, [address], [place], [address]. tel:[phone] Family History Family Member Type Diagnosis Age At Onset Problem (finding) Family history of cance r of colon Problem (finding) Family history of malignant neoplasm of breast in first degree relative Problem (finding) Family history of glauc terrence Problem (finding) Family history of hyper tension Problem (finding) Family history of catar act Problem (finding) Family history of Diabe david mellitus Problem (finding) Family history of Heart disease Payers Payer name Insurance type Covered libertarian ID Authoriza tion(s) Medicare [place] MB [id number] [employer] CI [id number] Social History Type Description Quantity Date Captured Comments Alcohol Use Details No Caffeine Use Details tea 1 cup weekly per day Tobacco Use Status Current non-smoker Smoking Status Never smoker Non-Smoking Tobacco Use Details : No Details Available : No Details Available Sex Female Vital Signs Date / Time: Height Weight BMI Pulse Rate Blood Pressure Temperature Respiratory Rate Body Surface Area Head Circumference Head Circ. Percentile Wt./Navjot. Percentile BMI percentile Pulse Ox Inhaled Ox 1:50 PM 122/68 mm[Hg] Chief Complaint And Reason For Visit From encounter dated 05/02/2020 13:20'. macular pucker (chief complaint). Description: The 65 year old female presents for evaluation of macular pucker in left eye. The patient is unaware of any vision changes since last visit 18 months ago. She now has insurance and wanted come in for an evaluation. The patient denies eye pain and flashes. Reason For Referral Reason For Referral No Information History Of Present Illness Encounter Date Complaint History Of Prese nt Illness macular pucker The 65 year old female presents for evaluation of macular pucker in left eye. The patient is unaware of any vision changes since last visit 18 months ago. She now has insurance and wanted come in for an evaluation. The patient denies eye pain and flashes. 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 It started about 4 months ago. The onset was sudden. Vision is not affected. The symptom is intermittent. The condition is mild. In addition, the condition is associated with daily activity and chores. Patient reports she noticed on a cold winter day she noticed a foggy spot on the left lens of her glasses when putting on cold sunglasses. Patient reports she does not know if the lens was perhaps closer in one eye compared to the other but only happened on the left eye x 5-6 months noticeable almost every time she put on her sunglasses in the winter. Patient reports no visual changes in the right eye. macular changes The 63 year old female referred by Dr. Van for possible macular changes in the left eye. Functional Status Date Functional Assessmen t No Information Instructions Date Instruction Additional Infor candelaria Return in Related to Pucke ring of macula, left eye Impression/Plan Related to Pucke ring of macula, left eye Impression/Plan Related to Bilat eral vitreous detachment of eyes Impression/Plan Related to Age-r elated nuclear cataract, bilateral Impression/Plan Related to Pucke ring of macula, left eye Impression/Plan Related to Bilat eral vitreous detachment of eyes Impression/Plan Related to Age-r elated nuclear cataract, bilateral Assessments Type Assessment Date assessment Puckering of macula, left eye Chris impression Puckering of macula, left eye: H35.372. OS. Condition: moderate, worse assessment Bilateral vitreous detachment of eyes impression Bilateral vitreous d etachment of eyes: H43.813. OU. Condition: established, no breaks assessment Age-related nuclear cataract, bi lateral impression Age-related nuclear cataract, bilateral: H25.13. OU. Condition: mild, progressive Patient Care Teams Name Effective Dates (start - stop) Status Members No Information
--- OUTSIDE RECORDS SUMMARY | 2024-10-25 10:00 | XMS_ITS ---
Author Organization The [facility] in [place] Address [address] [place] [address] Care Team Providers Care Organ Tuner Name Role Phone Dewayne Haile Primary Care Provider [phone] REASON FOR VISIT bp check Vital Signs Height 65 in 10/25/2024 Blood pressure systolic 146 mm Hg 10/26/19 25 Blood pressure diastolic 84 mm Hg 025 Encounters Encounter Location Date Provider Diagnosis [facility] [address] [place] [address] 10/25/2024 Haile Buchanan Essential Hypertensi on I10 Assessments Encounter Date Diagnosis (ICD Code) Assessment Notes Treatment Notes Treatment Clinical Notes Section Notes 10/25/2024 Essential Hypertension (ICD-10 - I10) Plan Of Treatment Next Appt Details Provider Name:Haile Buchanan, 10:00:00 AM, [address] [place], [address], Progress Notes * Reva RICHTERDOB: [birth year] (69 yo F)Acc No.[id number]:10/25/2024 UNLOCKED PROGRESS NOTE BP Check Patient: Reva ELENA Provider: Denny Buchanan ([facility])MD :1955 A ge:69 Y S ex:Female Date:10/25/2024 Address:[address] [place] [phone] Check In:02:08 PM EST Subjective: * Chief Complaints: * 1 . Bp check. * Medical History: Objective: * Vitals: H t: 65 in, BP:146/84mm Hg, Ht-cm: 165.1 cm. Assessment: * Assessment: 1. E ssential Hypertension - I10 (Primary) Plan: * Treatment: * * Electronic signature of Haile Buchanan MD, [id number] on 11/03/2024 at 09:32 PM EDT Sign off status: Pending Visit Status: O FF CANC (OFFICE CANCEL) * Provider: Denny Buchanan ([facility])MD Date: 10/25/2024 Generated for Johnna cedeño/Melinda/Yueitting on: 11/03/2024 09:32 PM EDT
--- OUTSIDE RECORDS SUMMARY | 2024-10-26 04:22 | XMS_ITS ---
Author Organization The [facility] in [place] Address [address] [place] [address] Care Team Providers Care Coroner/Medical Examiner Name Role Phone Haile Buchanan Primary Care Provider [phone] REASON FOR VISIT Blood Pressure- Medications Medication SIG (Take, Route, Frequency, Duration) Notes Start Date End Date Status Norvasc 10 MG 1 tablet Orally Once a day for 30 days 09/23/2024 Active Encounters Encounter Location Date Provider Diagnosis [facility] [address] [place] [address] 10/26/2024 Haile Buchanan Essential Hypertensi on I10 Assessments Encounter Date Diagnosis (ICD Code) Assessment Notes Treatment Notes Treatment Clinical Notes Section Notes 10/26/2024 Essential Hypertension (ICD-10 - I10) Plan Of Treatment Medication Medication Name Sig Start Date Stop Date Notes Norvasc 10 MG 1 tablet Orally Once a day for 30 days 09/23 Next Appt Details Provider Name:Haile Buchanan, 10:00:00 AM, [address] [place], [address], Progress Notes * Reva RICHTERDOB: [birth year] (69 yo F)Acc No.[id number]:10/26/2024 Patient: Reva LEENA :1955 A ge:69 Y S ex:Female Address:[address] [place] [id number] * Refills Refill Norvasc Tablet, 10 MG, Orally, 30, 1 tablet, Once a day, 30 days, Refills=0 Subjective: * Chief Complaints: * B lood Pressure- * Medical History: * Surgical History: * Hospitalization/Major Diagno stic Procedure: * Medications: Objective: * Vitals: * Physical Examination: Assessment: * Assessment: 1. E ssential Hypertension - I10 Plan: * Treatment: * Procedure Codes: * true * Date: Generated for Johnna cedeño/Melinda/eTransmitting on: 0 11/03/2024 09:32 PM EDT
[2024-11-03 21:31] VITALS: BP 160/88; PULSE 75; TEMP 36.8; O2SAT 98; BMI 26.6
--- OUTSIDE RECORDS SUMMARY | 2024-11-03 21:31 | XMS_ITS | CCD ---
Author Organization [facility] Care Team Providers Care Reconciliation Specialist Name Role Phone Re Buchanan Primary Care Provider [phone] Re Buchanan Attending Provider [phone] Marilee Choe Unavailable EVER, DR GRIMALDO Admitting [...] Consulting Unavailable Re Buchanan Primary Care Physician [phone] HUGO, Damaso Gonzalez Attending Unavailable NILL, Damaso Gonzalez Attending Unavailable NILL, Damaso Gonzalez Attending Unavailable HoyRe Referring Unavailable NILL, Damaso Gonzalez Admitting Unavailable NILL, Dmaaso Gonzalez Attending Unavailable NILL, Damaso Gonzalez Attending Unavailable Unavailable Unavailable Unavailable Allergies Allergy Classification Reported Allergen(s) Allergy Type Date of Onset Reaction(s) Facility (1 source) Lisinopril Drug Allergy Unknown [facility] Other (5 sources) Metoprolol; Translations: [metoprolol] Drug Allergy Nausea (finding) [facility] (1 source) No Known Medication Allergies; Translations: [No Known Medication Allergies] Propensity to adverse reactions (disorder) [facility] Repository Medications Current Medications Medication Drug Class(es) [...] lesion left cheek and skin tag left yazidism; pathology on cheek lesion consistent with skin [...] SARS-CoV-2 (COVID-19) mRNA-1273 vaccine 07/03/2020 Recorded Normal [facility] Comment on above: Result Comment: Elec tronically Signed By: HUGO SAXENA, Damaso Gonzalez\.br\Date and Time Signed: 12/15/23 14:02 EDT Surgical Pathology Reporton 12-11-2023 Surgical Pathology Report [address] [place] [address]- Surgical Pathology Report Collected Date/Time: 12/08/2023 14:33 [...] cm in greatest dimension, totally submitted. (MG) MSG:[facility] Microscopic Description Microscopic examination performed unless gross only specified. Normal [facility] Comment on above: Performed By: #### [id number] #### [facility] Laboratory [address] [place] [address] Ambulatory Visit Summaryon 0 12-08-2023 Ambulatory Visit [...] With: HUGO SAXENA, Damaso Gonzalez Where: [address], [address], [place] [id number]- Medications What How Much When Instructions Unchanged [...] for choosing us for your care. Normal [facility] General Surgery Office/Clini c Noteon 12-08-2023 General [...] Ordered: Exc Face-Mm B9+Ligia 0.5 < Cm [address]2848 Office Visit No Charge Pathology Tissue Exam Remove skin tags 15 or less 36670 2. Skin tag (L91.8: Other hypertrophic disorders [...] (COVID-19) mRNA-1273 vaccine 07/03/2020 Recorded Normal [facility] Comment on above: Result Comment: Elec tronically [...] for choosing us for your care. Normal [facility] Physician Referralon 024 Physician Referral [id number] #1.00TIFF Normal [facility] Physician Referralon 024 Physician Referral [id number] #1.00TIFF Normal [facility] CBC AUTO DIFFon 02-10-2022 BASO # 0.0 103/ul Normal 0.0-0.1 [facility] Comment on above: Performed By: #### C BC #### [facility] [address] [place] [address] Dr. Martha Spain Basophils/100 WBC (Bld) 0.3 % Normal 0.2-2.0 [facility] Comment on above: Performed By: #### C BC #### [facility] [address] [place] [address] Dr. Martha Spain EO # 0.1 103/ul Normal 0.0-0.7 [facility] Comment on above: Performed By: #### C BC #### [facility] [address] [place] [address] Dr. Martha Spain Eosinophils/100 WBC (Bld) 1.1 % Normal 0.9-7.0 [facility] Comment on above: Performed By: #### C BC #### [facility] [address] [place] [address] Dr. Martha Spain Erythrocyte distribution width (RBC) [Ratio] 12.8 % Normal 11.0-15.0 [facility] Comment on above: Performed By: #### C BC #### [facility] [address] [place] [address] Dr. Martha Spain Hematocrit (Bld) [Volume fraction] 41.2 % Normal 36.0-48.0 [facility] Comment on above: Performed By: #### C BC #### [facility] [address] [place] [address] Dr. Martha Spain Hemoglobin (Bld) [Mass/Vol] 13.5 g/dL Normal 12.0-16.0 [facility] Comment on above: Performed By: #### C BC #### [facility] [address] [place] [address] Dr. Martha Spain IG # 0.02 10e3/ul Normal 0.00-0.03 [facility] Comment on above: Performed By: #### C BC #### [facility] [address] [place] [address] Dr. Martha Spain IG % 0.3 % Normal 0.0-0.5 [facility] Comment on above: Performed By: #### C BC #### [facility] [address] [place] [address] Dr. Martha Spain LYMPH # 1.6 103/ul Normal 1.2-3.8 [facility] Comment on above: Performed By: #### C BC #### [facility] [address] [place] [address] Dr. Martha Spain Lymphocytes/100 WBC (Bld) 24.3 % Normal 20.5-60.0 [facility] Comment on above: Performed By: #### C BC #### [facility] [address] [place] [address] Dr. Martha Spain MANUAL DIFF REQ NO Normal [facility] Comment on above: Performed By: #### C BC #### [facility] [address] [place] [address] Dr. Martha Spain MCH (RBC) [Entitic mass] 29.3 pg Normal 26.7-34.0 [facility] Comment on above: Performed By: #### C BC #### [facility] [address] [place] [address] [address] Martha Spain MCHC (RBC) [Mass/Vol] 32.8 g/dL Normal 29.9-35.2 [facility] Comment on above: Performed By: #### C BC #### [facility] [address] [place] [address] [address] Martha Spain MCV (RBC) [Entitic vol] 89.6 fL Normal 81.0-99.0 [facility] Comment on above: Performed By: #### C BC #### [facility] [address] [place] [address] Dr. Martha Spain MONO # 0.5 103/ul Normal 0.3-0.8 [facility] Comment on above: Performed By: #### C BC #### [facility] [address] [place] [address] Dr. Martha Spain Monocytes/100 WBC (Bld) 7.4 % Normal 1.7-12.0 [facility] Comment on above: Performed By: #### C BC #### [facility] [address] [place] [address] Dr. Martha Spain NEUT # 4.4 103/ul Normal 1.4-6.5 [facility] Comment on above: Performed By: #### C BC #### [facility] [address] [place] [address] Dr. Martha Spain Neutrophils/100 WBC (Bld) 66.6 % Normal 43.0-75.0 [facility] Comment on above: Performed By: #### C BC #### [facility] [address] [place] [address] [address] Martha Spain Platelet mean volume (Bld) [Entitic vol] 10.8 fL Normal 9.5-13.5 [facility] Comment on above: Performed By: #### C BC #### [facility] [address] [place] [address] [address] Martha Spain PLT 158 103/ul Normal 150-450 [facility] Comment on above: Performed By: #### C BC #### [facility] [address] [place], [place] [address] Dr. Martha Spain RBC 4.60 106/ul Normal 4.20-5.40 [facility] Comment on above: Performed By: #### C BC #### [facility] [address] [place], [place] [address] Dr. Martha Spain WBC 6.7 103/ul Normal 4.0-11.0 [facility] Comment on above: Performed By: #### C BC #### [facility] [address] [place], [place] [address] ABD/PELV W CONon [...] LYNNETTE LEGGETT Date: 2022-02-10 11:03 Normal [facility] PROF 14(COMP METB)on 02-10- 022 Albumin [Mass/Vol] 4.0 g/dL Normal 3.4-5.0 [facility] Comment on above: Performed By: #### C MP #### [facility] [address] [place] [address] Dr. Martha Spain Albumin/Globulin [Mass ratio] 1.1 {ratio} Normal [facility] Comment on above: Performed By: #### C MP #### [facility] [address] [place] [address] [address] Martha Spain ALP [Catalytic activity/Vol] 87 U/L Normal 46-116 [facility] Comment on above: Performed By: #### C MP #### [facility] [address] [place] [address] Dr. Martha Spain ALT [Catalytic activity/Vol] 44 U/L Normal 14-59 [facility] Comment on above: Performed By: #### C MP #### [facility] [address] [place] [address] Dr. Martha Spain Anion gap [Moles/Vol] 9.5 mmol/L Normal [facility] Comment on above: Performed By: #### C MP #### [facility] [address] [place] [address] Dr. Martha Spain AST [Catalytic activity/Vol] 30 U/L Normal 15-37 [facility] Comment on above: Performed By: #### C MP #### [facility] [address] [place] [address] Dr. Martha Spain Bilirubin [Mass/Vol] 0.7 mg/dL Normal 0.2-1.0 [facility] Comment on above: Performed By: #### C MP #### [facility] [address] [place] [address] Dr. Martha Spain Calcium [Mass/Vol] 9.2 mg/dL Normal 8.5-10.1 [facility] Comment on above: Performed By: #### C MP #### [facility] [address] [place] [address] Dr. Martha Spain Chloride [Moles/Vol] 101 mmol/L Normal 98-107 [facility] Comment on above: Performed By: #### C MP #### [facility] [address] [place] [address] Dr. Martha Spain CO2 [Moles/Vol] 31.1 mmol/L Normal 21.0-32.0 [facility] Comment on above: Performed By: #### C MP #### [facility] [address] [place] [address] [address] Martha Spain Creatinine [Mass/Vol] 0.84 mg/dL Normal 0.55-1.02 [facility] Comment on above: Performed By: #### C MP #### [facility] [address] [place] [address] [address] Martha Spain EGFR-AF TAJIK >60 Normal >=60 [facility] Comment on above: Performed By: #### C MP #### [facility] [address] [place] [address] [address] Martha Spain EGFR-NON AF TAJIK >60 Normal >=60 [facility] Comment on above: Performed By: #### C MP #### [facility] [address] [place] [address] [address] Martha Spain Globulin (S) [Mass/Vol] 3.8 g/dL Normal [facility] Comment on above: Performed By: #### C MP #### [facility] [address] [place] [address] [address] Martha Spain Glucose [Mass/Vol] 110 mg/dL Critically high 74-106 [facility] Comment on above: Performed By: #### C MP #### [facility] [address] [place] [address] Dr. Martha Spain Potassium [Moles/Vol] 4.6 mmol/L Normal 3.5-5.1 [facility] Comment on above: Performed By: #### C MP #### [facility] [address] [place] [address] [address] Martha Spain Protein [Mass/Vol] 7.8 g/dL Normal 6.4-8.2 [facility] Comment on above: Performed By: #### C MP #### [facility] [address] [place] [address] Dr. Martha Spain Sodium [Moles/Vol] 137 mmol/L Normal 136-145 [facility] Comment on above: Performed By: #### C MP #### [facility] [address] [place], [place] [address] Dr. Martha Spain Urea nitrogen [Mass/Vol] 14.0 mg/dL Normal 7.0-18.0 [facility] Comment on above: Performed By: #### C MP #### [facility] [address] [place], [place] [address] Dr. Martha Spain Urea nitrogen/Creatinin e [Mass ratio] 16.7 mg/mg Normal [facility] Comment on above: Performed By: #### C MP #### [facility] [address] [place], [place] [address] Dr. Martha Spain COVID Quick Testingon 2021 Result Negative [facility] Other MRI KNEE LT WO CONon MRI [...] by: LYNNETTE LEGGETT Date: 2021-10-15 10:38 Normal [facility] MM screening mammo BI w/CADo n 07-31-2020 MM screening mammo BI w/CAD [facility] [place] [address] [place], [place] [id number] Mammography Report Signed Patient: Reva Richter MR#: [id number] : 1955 Acct:[id number] Age/Sex: 65 / F ADM Date: 07/31/20 Loc: [place] Room: Type: [facility] Attending Dr: Re Buchanan MD Ordering Provider: [...] Varghese Copeland M.D.07/31/2020 12:01 PM Dictation Location: [facility] Transcribed By: [facility] 07/31/20 1201 Dictated By: Varghese Copeland DO 07/31/20 1157 Signed By: 07/31/20 1201 [facility] Vital Signs Date Time Vital Sign Value Performing Clinician Facility 08-24-2023 15:34-0400 Diastolic blood pressure 101 mm[Hg] Damaso GARCIAL [facility] [place] 08-24-2023 15:34-0400 Heart rate 65 /min Damaso NILL [facility] [place] 08-24-2023 15:34-0400 Mean blood pressure 128 mm[Hg] Damaso NILL [facility] 08-24-2023 15:34-0400 Systolic blood pressure 181 mm[Hg] Damaso NILL [facility] 08-24-2023 15:09-0400 Blood Pressure Location Damaso NILL [facility] 08-24-2023 15:09-0400 Diastolic blood pressure 107 mm[Hg] Damaso NILL [facility] 08-24-2023 15:09-0400 Heart rate 61 /min Damaso NILL [facility] 08-24-2023 15:09-0400 Respiratory rate 16 /min Damaso NILL [facility] 08-24-2023 15:09-0400 Systolic blood pressure 197 mm[Hg] Damaso NILL [facility] 11-22-2021 10:35-0400 Body height 165.1 cm Marilee Cohe Other [facility] Other 11-22-2021 10:35-0400 Body mass index (BMI) [Ratio] 25.79 kg/m2 Marilee Choe Other [facility] Other 11-22-2021 10:35-0400 Body temperature 96 [degF] Marilee Choe Other [facility] Other 11-22-2021 10:35-0400 Body weight 70.31 kg Marilee Choe Other [facility] Other 11-22-2021 10:35-0400 Respiratory rate 18 /min Marilee Choe Other [facility] Other 11-22-2021 10:35-0400 SaO2% (BldA) [Mass fraction] 97 % Marilee Choe Other [facility] Other Encounters Encounter Date Encounter Type Care Provider Facility Start: 12-15-2023 End: 12-15-2023 ambulatory Damaso R NILL Facility: [facility] Start: 12-15-2023 End: 12-15-2023 Patient encounter procedure [facility] Start: 12-08-2023 End: 12-08-2023 ambulatory Damaso R NILL Facility:[facility] Start: 12-08-2023 End: 12-08-2023 Lab Drop off Damaso R NILL [facility] Start: 12-08-2023 End: 12-08-2023 ambulatory Damaso R NILL Facility: [facility] Start: 12-08-2023 End: 12-08-2023 Patient encounter procedure Damaso R NILL [facility] Start: 09-08-2023 ambulatory Damaso R NILL Facility : [place] Start: 08-24-2023 End: 08-24-2023 ambulatory Damaso R NILL Facility: [place] Start: 08-24-2023 End: 08-24-2023 Patient encounter procedure Damaso R NILL [facility] [place] Start: 08-20-2023 ambulatory Damaso NILL Facility:[facility] Start: 02-10-2022 End: 02-11-[address] RE BUCHANAN Facility:[facility] Start: 11-22-2021 End: 11-22-2021 ambulatory Marilee Choe Other [facility] Other Start: 11-22-2021 Office outpatient ne w 20 minutes Marilee Choe [facility] Start: 10-15-2021 End: 10-16-[address] RE BUCHANAN Facility:[facility] Start: 10-10-2021 End: 10-11-[address] RE BUCHANAN Facility:[facility] Start: 07-31-2020 End: 07-31-2020 Patient encounter procedure Re Buchanan [facility] Procedures Date Procedure Procedure Detail Performing Clinician Start: 09-26-2020 Colonoscopy Damaso DE LA FUENTE Start: 07-31-2020 Screening mammograph y of bilateral breasts Re Buchanan Immunizations Immunization Date Immunization Notes Care Provider [facility] 04-10-2021 SARS-CoV-2 (COVID-19 ) mRNA-1273 vaccine Damaso ARIAS [facility] 08-03-2020 SARS-CoV-2 (COVID-19 ) mRNA-1273 vaccine Damaso ARIAS [facility] 07-03-2020 SARS-CoV-2 (COVID-19 ) mRNA-1273 vaccine Damaso ARIAS [facility] 06-19-2016 hepatitis B vaccine, adult dosage Marilee Choe Other [facility] Other 06-11-2016 hepatitis A vaccine, pediatric/adolescent dosage, 2 dose schedule Marilee Choe Other [facility] Other Payers Date Payer Category Payer Medicare [id number] 2.1 [id number] 1959 Medicare [id number] 2.16. [id number] 1955 Unknown [id number] 2.16.84 [id number] 1955 Unknown [id number] 2.16.84 [id number] 1955 Unknown [id number] 2.16.84 [id number] 1955 Unknown [id number] 2.16.8 [id number] 1955 Unknown [id number] 2.16.8 [id number] 1955 Unknown [id number] 2.16.8 [id number] 1955 Unknown [id number] 2.16.8 [id number] 1955 Unknown [id number] 2.16.8 [id number] Self-pay Self Pay [id number] Unknown Self Pay [id number] Social History Date Type Detail Facility [facility] Start: 1955 Sex Assigned At Female F [facility] Sex Assigned At [facility] Start: 08-24-2023 Tobacco smoking status Never s moked tobacco (finding) [facility] Tobacco smoking status Never [facility] Goals Date Patient Goal Desired Activity /State Functional Status Date Assessment Result Facility 12-08-2023 Functional Status N/A [facility] 08-24-2023 Functional Status N/A [facility] Clinical Note 08-24-2023 Note Date & Type Note Facility 08-24-2023 Note Chief Complaint consultation for nevus HPI Staff 68 year old female presents on consultation from Dr. Buchanan for face nevus. Patient reports small lesion to right nostril, one to left cheek and one to left yazidism area. History of Present Illness 68 yo [...] Recorded SARS-CoV-2 (COVID-19) mRNA-1273 vaccine 07/03/2020 Recorded [facility] Comment on above: Result Comment: Elec tronically [...] s/s of dehydration or severe abdominal pain. [facility] Other Clinical Note 10-10-2021 Note Date & [...] authenticated by: LEATHA HURLEY Date: 2021-10-10 11:39 [facility] Evaluation + Plan note Note Date & Type Note Facility Evaluation + Plan note Future Appointments Appointment Date:09/08/2023 03:00:00 PM Scheduled Provider:Damaso ARIAS MD Location:[facility] Appointment Type: Procedure 30 [facility] [place] Evaluation + Plan note Note Date & Type Note Facility Evaluation + Plan note Future Appointments Appointment Date:12/15/2023 02:00:00 PM Scheduled Provider:Damaso ARIAS MD Location:[facility] Appointment Type: Established 15 [facility] History general Narrative - Reported Note Date & Type Note Facility History general Narrative - Reported Type Medical History Hepatitis C from [facility] blood transfusion Medical History Hypertension Surgical History cyst right hand-calcium deposit 1985 Hospitalization History see above [facility] Other Hospital course Narrative Note Date & Type Note Facility Hospital course Narrative No data available for this section [facility] [place] [facility] Discharge instructions Note Date & Type Note Facility Hospital Discharge instructions No data available for this section [facility] Progress note Note Date & Type Note Facility Progress note No data available for this section [facility] [place] Advance Directives No Advanced Directives Records Found [...] section and content) DATE CREATED AUTHOR 08/11/2020 [facility] DATE CREATED AUTHOR AUTHOR'S ORGANIZ ATION 02/16/2022 [facility] DATE CREATED AUTHOR AUTHOR'S ORGANIZ ATION 12/13/2023 [facility] DATE CREATED AUTHOR AUTHOR'S ORGANIZ ATION 12/16/2023 [facility] DATE CREATED AUTHOR AUTHOR'S ORGANIZ ATION 12/17/2023 [facility] REASON FOR VISIT (unrecogniz ed section and content) NANDO VAZQUEZ, H/Harris, MICKY EXPSO URE Patient Care team informatio n (unrecognized section and content) Personnel Name: Re Buchanan MD Address: Address: [address] [place] [address] Personnel Name: Re Buchanan MD Address: Address: [address] [place] [address] Personnel Name: Re Buchanan MD Address: Address: [address] [place] [address] Personnel Name: Re Buchanan MD Address: Address: [address] [place] [address], [place] [address] FOR REC[facility] PERTAINING TO PATIENTS WHO ARE [...] BE BASED ON THE PRIMARY CLINICAL RECORDS. [facility]. provides no warranty or guarantee of the accuracy or completeness of information in this document.
--- OUTSIDE RECORDS SUMMARY | 2024-11-03 21:32 | XMS_ITS | Patient Health Record ---
Author Organization [facility] [place] Address [address] [place] [address] Care Team Providers Care Cooperative Manager Name Role Phone Haile Curtis Primary Care Provider Eileen Espinosa Unavailable [phone] Allergies Allergen (clinical drug ingredient) Drug/Non Drug Allergy documented on EMR Reaction Allergy Type Onset Date Status tramadol traMADol HCl lightheaded Drug Allergy Ac tive lisinopril Lisinopril cough Drug Allergy Activ e Results Component Value Reference Range Notes IRON Reviewed date:09/06/2024 08:15:04 PM Interpretation: Performing Lab: Notes/Report: [facility] , Iron 81.0 50.0-170.0 ug/dL Performing Lab: see note ML - [facility] LB LIPID PROFILE Reviewed date:09/06/2024 08:15:04 PM Interpretation: Performing Lab: Notes/Report: [facility] , Triglycerides 68 <=150 mg/dL Cholesterol 174 [...] Performing Lab: see note ML - [facility] LB PROF 14(COMP METB) Reviewed date:09/06/2024 08:15:04 PM Interpretation: Performing Lab: Notes/Report: [facility] , Sodium 142 136-145 mmol/L Potassium 4.5 [...] 1.0 Performing Lab: see note ML - [facility] LB T4 Reviewed date:09/06/2024 08:15:04 PM Interpretation: Performing Lab: Notes/Report: [facility] , T4 Thyroxine 8.50 4.80-13.90 ug/dL Performing Lab: see note ML - [facility] LB TSH Reviewed date:09/06/2024 08:15:04 PM Interpretation: Performing Lab: Notes/Report: [facility] , Thyroid Stimulating Hormone 1.798 0.358-3.740 uIU/mL Performing Lab: see note ML - [facility] LB CBC AUTO DIFF Reviewed date:10/25/2024 07:12:58 PM Interpretation: Performing Lab: Notes/Report: [facility] , White Blood Count 6.6 4.0-11.0 10 [...] Performing Lab: see note ML - [facility] LB PROF 14(COMP METB) Reviewed date:10/25/2024 07:12:58 PM Interpretation: Performing Lab: Notes/Report: [facility] , Sodium 141 136-145 mmol/L Potassium 3.6 [...] Globulin Ratio 1.0 Performing Lab: see note - [facility] Prothrombin Time INR Reviewed date:10/25/2024 07:12:58 PM Interpretation: Performing Lab: Notes/Report: [facility] , Prothrombin Time 10.9 9.0-11.6 sec INR 1.03 2.5-3.5 RECURRENT THROMBOSIS 2.0-3.0 CONDITIONS NOT LISTED BELOW 2.5-3.5 FOR PROSTHETIC HEART VALVE REPLACEMENT DESIRED INR: Performing Lab: see note ML - [facility] Troponin I High Sensitivity Reviewed date:10/25/2024 07:12:58 PM Interpretation: Performing Lab: Notes/Report: [facility] , Troponin I High Sensitivity 7.2 4.0-51.3 pg/mL NOTE: HIGH-SENSITIVITY TROPONIN ASSAY IS NOT INTENDED TO BE PERCENTILE OF cTnI DISTRIBUTION IN A REFERENCE POPULATION, WITH OTHER DIAGNOSTIC AND CLINICAL INFORMATION. CUT-OFF POINTS HAVE BEEN ESTABLISHED BASED ON THE FOURTH DIAGNOSIS. REFERENCE LIMIT (URL) OF TROPONIN, DEFINED THE 99TH UNIVERSAL DEFINITION OF MYOCARDIAL INFARCTION. THE UPPER HAS BEEN CONFIRMED THE DECISION THRESHOLD FOR [facility] 99TH PERCENTILE = 51.4 PG/ML USED IN ISOLATION BUT SHOULD BE INTERPRETED IN CONJUNCTION Performing Lab: see note - [facility] ECG 12 lead Reviewed date:10/27/2024 06:24:12 PM Interpretation: Performing Lab: Notes/Report: Source Facility: [place] [address] Electrocardiograph Report Signed Patient: REVA RICHTER MR#: [id number] : 1955 Acct:[id number] Age/Sex: 69 / F ADM Date: 10/25/24 Loc: ER Attending Dr: Ordering Physician: Marine Pickett Date of Service: 10/25/24 Procedure(s): ECG 12 lead Accession Number(s): [id number] cc: [facility] Test Date: 2024-10-25 Pat Name: REVA RICHTER Department: Room: - Gender: Female Bow Stapler: : 1955 Requested By: RE CURTIS Order Number: [id number] Reading MD: CARLA HAUSER Measurements Intervals [place] Rate: 72 P: 64 AZ: 196 QRS: 55 QRSD: 82 T: 56 QT: 392 QTc: 417 Interpretive Statements 1100 Sinus rhythm 9110 normal ECG No previous ECG available for comparison Electronically Signed On 10-27-2024 9:03:00 EDT by CARLA HAUSER Dictated By: Carla Hauser M.D. Signed By: 10/27/24902 DD/ 154 TD/TT: Complaint Specialist: [place] [address] Electrocardiograph Report Signed Patient: AUSTEN RICHTER MR#: [id number] : 1955 Acct:[id number] Age/Sex: 69 / F ADM Date: 10/25/24 Loc: ER Attending Dr: Ordering Physician: Marine Pickett Date of Service: 10/25/24 Procedure(s): ECG 12 lead Accession Number(s): [id number] cc: [facility] Test Date: 2024-10-25 Pat Name: REVA WOODS Department: 32 Room: - Gender: Female Bow Stapler: : 1955 Requ ested By: RE CURTIS Order Number: [id number] Reading MD: CARLA HAUSER Measurements Intervals [place] Rate: 72 P: 64 AZ: 196 QRS: 55 QRSD: 82 T: 56 QT: 392 QTc: 417 Interpretive Statements 1100 Sinus rhythm 9110 normal ECG No previous ECG avai lable for comparison Electronically Nevaeh d On 10-27-2024 9:03:00 EDT by CARLA HAUSER Dictated By: Carla Hauser M.D. Signed By: 10/27/24902 DD/ 1544 TD/TT: Complaint Specialist: RAMESH chest 1V Reviewed date:10/25/2024 07:12:58 PM Interpretation: Performing Lab: Notes/Report: Source Facility: [address] [address] XRay Report Signed Patient: REVA RICHTER MR#: [id number] : 1955 Acct:[id number] Age/Sex: 69 / F ADM Date: 10/25/24 Loc: ER Attending Dr: Ordering Physician: Marine Pickett Date of Service: 10/25/24 Procedure(s): XR chest 1V Accession Number(s): [id number] cc: Re Curtis M.D.; Marine Pickett [place] [address] Patient Name: REVA RICHTER MRN: [id number] date: 1955 Sex: F Assigned Patient Location: ED.MAIN Current Patient Location: ED.MAIN Accession/Order Number: [id number] Exam Date: 10/25/2024 15:50 Report Date: 10/25/2024 [...] Becerra M.D. 10/25/2024 3:53 PM Dictation Location: [place] [address] Electronically authenticated by: [id number] Y Date: 10/25/2024 15:53 Dictated By: Hunter Becerra M.D. Signed By: 10/25/24 1555 DD/ 155 TD/TT: Complaint Specialist: [address] [address] XRay Report Signed Patient: AUSTEN RICHTER MR#: [id number] : 1955 Acct:[id number] Age/Sex: 69 / F ADM Date: 10/25/24 Loc: ER Attending Dr: Ordering Physician: Marine Pickett Date of Service: 10/25/24 Procedure(s): XR chest 1V Accession Number(s): [id number] cc: Re Curtis M.D. ; Marine iPckett [address] [address] Patient Name: REVA RICHTER MRN: [id number] date: 1955 Sex: F Assigned Patient Location: ED.MAIN Current Patient Loca tion: ED.MAIN Accession/Order Numb er: [id number] Exam Date: 10/25/2024 15:50 Report Date: 10/25/2024 [...] Becerra M.D. 10/25/2024 3:53 PM Dictation Location: [place] [address] Electronically authenticated by: [id number] Y Date: 10/25/2024 15:53 Dictated By: Hunter Becerra M.D. Signed By: 10/25/24 1555 DD/ 155 TD/TT: Complaint Specialist: Troponin I High Sensitivity Reviewed date:10/25/2024 07:12:58 PM Interpretation: Performing Lab: Notes/Report: [facility] , Troponin I High Sensitivity 7.5 4.0-51.3 pg/mL USED IN ISOLATION BUT SHOULD BE INTERPRETED IN CONJUNCTION DIAGNOSIS. HAS BEEN CONFIRMED THE DECISION THRESHOLD FOR [facility] NOTE: HIGH-SENSITIVITY TROPONIN ASSAY IS NOT INTENDED TO BE UNIVERSAL DEFINITION OF MYOCARDIAL INFARCTION. THE UPPER 99TH PERCENTILE = 51.4 PG/ML PERCENTILE OF cTnI DISTRIBUTION IN A REFERENCE POPULATION, CUT-OFF POINTS HAVE BEEN ESTABLISHED BASED ON THE FOURTH REFERENCE LIMIT (URL) OF TROPONIN, DEFINED THE 99TH WITH OTHER DIAGNOSTIC AND CLINICAL INFORMATION. Performing Lab: see note ML - [facility] LB GLYCOHEMOGLOBIN A1C Reviewed date:09/06/2024 08:15:04 PM Interpretation: Performing Lab: Notes/Report: [facility] , Glycohemoglobin A1C 5.9 4.5-6.2 % ADA THERAPEUTIC TARGET < 7.0 > 7.0 ACTION SUGGESTED ADA RECOMMENDED LIMIT 4.0 - 6.0 Estimated Average Glucose 123 Performing Lab: see note ML - [facility] LB FREE T3 Reviewed date:09/06/2024 08:15:04 PM Interpretation: Performing Lab: Notes/Report: [facility] , Free T3 3.40 2.18-3.98 pg/mL Performing Lab: see note ML - [facility] LB CBC AUTO DIFF Reviewed date:09/06/2024 08:15:04 PM Interpretation: Performing Lab: Notes/Report: [facility] , White Blood Count 4.4 4.0-11.0 10 [...] Performing Lab: see note ML - [facility] LB Reason For Referral No Information Medications Medication [...] W/U Status Risk Notes Problem Hepatitis C (53790140) Hepatitis C (B19.20) Active confirmed Problem Eczema (92211223) Eczema (L30.9) Active confirmed Problem Diverticular disease of colon (784582135) Diverticulosis (K57.90) Active confirmed Problem Gastritis (3454129) Gastritis (K29.70) Active confirmed Problem Pruritus (227222249) Pruritus (L29.9) Active confirmed Problem Overweight (506302121) Over weight (E66.3) Active confirmed Problem Nevus (8951838049) Nevus (D22.9) Active confirmed Problem History of infectious disease (543444800) History of hepatitis (Z86.19) Active confirmed Problem Essential hypertension (89498882) Essential Hypertension (I10) Active confirmed Vital Signs [...] N/A Encounters Encounter Location Date Provider Diagnosis [facility] [address] [place] [address] 09/23/2024 Haile Hoy Essential Hypertensi on I10 [facility] [address] [place] [address] 09/05/2024 Haile Hoy Essential Hypertensi on I10 ; Over weight E66.3 ; Hepatitis C B19.20 and Eczema L30.9 [facility] [address] [place] [address] 10/25/2024 Eileen Francisca Essential Hypertensi on I10 and Chest discomfort R07.89 [facility] [address] [place] [address] 08/09/2024 Haile Hoy [facility] [address] [place] [address] 08/23/2024 Haile Hoy Essential Hypertensi on I10 [facility] [address] [place] [address] 09/06/2024 Haile Hoy [facility] [address] [place] [address] 09/23/2024 Haile Hoy Essential Hypertensi on I10 [facility] [address] [place] [address] 10/26/2024 Haile Curtis Essential Hypertensi on I10 Assessments Encounter Date Diagnosis (ICD Code) Assessment Notes Treatment Notes Treatment Clinical Notes Section Notes 09/05/2024 Over weight (ICD-10 - E66.3) 09/05/2024 Essential Hypertension (ICD-10 - I10) 09/23/2024 Essential Hypertension (ICD-10 - I10) 10/25/2024 Chest discomfort (ICD-10 - R07.89) EKG stress test to ER for eval EKG here possible [facility] 10/25/2024 Essential Hypertension (ICD-10 - I10) 08/23/2024 Essential Hypertension (ICD-10 - I10) 09/23/2024 [...] DIFF 09/05/2024 Next Appt Details Provider Name:Haile Curtis, 10:00:00 AM, [address] [facility], [place], [address], Insurance Providers Payer Name Payer Address Payer Phone Subscriber Number Group Number Insured Name Patient Relationship to Insured Coverage Start Date Coverage End Date [place] [address] [place] [address] [id number] Reva Richter Self - patient is the insured [employer] SU[employer] [address] [address] [place], [place] [phone] [id number] Reva Richter Self - patient is the insured Medical (General) History Medical History History ICD Code Diverticulosis K57.90 Gastritis K29.70 Over weight E66.3 Nevus D22.9 Pruritus L29.9 History of hepatitis Z86.19 Eczema L30.9 Hepatitis C B19.20 Essential Hypertension I10 Surgical History Surgery Date(Month/Year) right hand surgery
--- OUTSIDE RECORDS SUMMARY | 2024-11-03 21:32 | XMS_ITS | Clinical Summary ---
Author Organization [facility] Address [address] [place] [address] Care Team Providers Care Hand Riveter Name Role Phone Unavailable Primary Care Provider [...]
--- NOTE | 2024-11-03 21:37 | XR_ITS ---
[address] [address] Patient Name: CHRISTY RICHTER MRN: [id number] date: 1955 Sex: F Assigned Patient Location: ED.MAIN Current Patient Location: ED.MAIN Accession/Order Number: [id number] Exam Date: 11/03/2024 22:55 Report Date: 11/03/2024 22:57 At the request of: JUAN PATTERSON MD Procedure: XR knee RT 3V XR knee RT 3V 11/03/2024 9:38 PM SIGNS AND SYMPTOMS: Acute right knee pain PROTOCOL: Frontal, lateral, and oblique radiographs of the right knee COMPARISON: None FINDINGS: There is mild narrowing of the medial weightbearing joint space. Patellofemoral joint space is intact. No soft tissue swelling. No joint effusion. No fracture. XR/XR knee RT 3V IMPRESSION: No acute bony injury. There is mild narrowing of the medial weightbearing joint space. Impression dictated by: Hunter Becerra M.D. 11/03/2024 10:57 PM Dictation Location: [place] [address] Electronically authenticated by: [id number] Y Date: 11/03/2024 22:57
[2024-11-03 22:30] VITALS: BP 172/93; PULSE 74; O2SAT 97
--- NOTE | 2024-11-03 22:42 | PC.NURSE ---
Pain to right knee, no redness, swelling or bruising present. Ice applied.
--- NOTE | 2024-11-03 22:49 | ED_ITS ---
HPI HPI - Extremity Injury (Lower) General Chief Complaint: Extremity Injury, Lower Stated Complaint: Lower Pain Time Seen by Provider: 11/03/24 22:39 Source: patient Mode of arrival: Wheelchair History of Present Illness HPI Narrative: right knee pain. States pain for the past month. Tonight she was chasing the dog and twist the knee and felt a pop. Knee is most comfortable in extension. Able to flex the knee but increases pain. No weakness or other injury Related Data Allergies Allergy/AdvReac Type Severity Reaction Status Date / Time No Known Drug Allergies Allergy Verified 10/25/24 15:26 Review of Systems ROS Status of ROS 10 or more systems reviewed and unremark able except as noted in history and below PFSH PFSH Social History Little interest or pleasure in doing things: not at all Feeling down, depressed, or hopeless: not at all Exam Constitutional Vital Signs, click to edit/add: Last Vital Signs Temp 98.3 F 11/03/24 21:31 Pulse 74 11/03/24 22:30 Resp 20 11/03/24 22:30 BP 172/93 H 11/03/24 22:30 Pulse Ox 97 11/03/24 22:30 O2 Del Method Room Air 11/03/24 22:30 Common normals: no apparent distress, average body habitus, oriented x3, no limitations, healthy appearing, alert and well nourished [facility] Common normals: normocephalic and head/scalp atraumatic Respiratory Common normals: normal respiratory effort, no retractions, no use of accessory muscles and clear to auscultation bilaterally Cardio Common normals: regular rate, regular rhythm, S1 normal heart sound and S2 normal heart sound Extremity Common normals: normal to inspection Other: pain with valgus maneuver right knee. no swelling or erythema Neuro Common normals: oriented x3, CN's II-XII intact bilaterally, moves all extremities and no focal motor deficits Psych Appearance: grossly normal Course Vital Signs Vital signs: Vital Signs Temperature 98.3 F 11/03/24 21:31 Pulse Rate 75 11/03/24 21:31 Respiratory Rate 18 11/03/24 21:31 Blood Pressure 160/88 H 11/03/24 21:31 Pulse Oximetry 98 11/03/24 21:31 Oxygen Delivery Method Room Air 11/03/24 21:31 Temperature 98.3 F 11/03/24 21:31 Pulse Rate 74 11/03/24 22:30 Respiratory Rate 20 11/03/24 22:30 Blood Pressure 172/93 H 11/03/24 22:30 Pulse Oximetry 97 11/03/24 22:30 Oxygen Delivery Method Room Air 11/03/24 22:30 MDM - Extremity Injury (Lower) MDM Narrative Medical decision making narrative: presents with right knee injury . chasing the dog and twist the knee and felt a pop. no significant effusion. xray neg. Patient advised that she may have injured her meniscus and will need follow up with ortho Discharge Plan Discharge Chief Complaint: Extremity Injury, Lower Clinical Impression: Acute pain of right knee Patient Disposition: Home, Self-Care Print Language: Namibian Instructions: Knee Pain (ED) Additional Instructions: follow up with orthopedics next week Referrals: Akash Buchanan MD [Primary Care Provider, Family Practice] - 1 week
== END 2024-11-03 23:54 | disposition home or self-care (01) ==
PROVIDERS: Emergency Provider Internal Medicine; PCP Family Medicine
DX: M25.561 Pain in right knee (principal)
CPT/HCPCS: 73562; 99283

== ENCOUNTER 2024-11-14 06:46 | Outpatient (OUT) | payer MEDICARE, OTHER, SELFPAY ==
--- OUTSIDE RECORDS SUMMARY | 2020-05-02 09:20 | XMS_ITS | Continuity of Care Document ---
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 [address], [address], [place], [place], [id number], [place]. tel:[phone] Referring Provider: Jorgito Kelley, [address], [place], [address]. tel:[phone] OFFICE/OUTPAT IENT VISIT, [facility] , [address], [place], [address], [place] tel:[phone] RVA Mago macular changes (chief complaint)f lutter spot in vision (chief complaint) Puckering of macula, left eyeBilateral vitreous detachment of eyesAge-relate d nuclear cataract, bilateral Org Pearl. [address], [address], [place], [place], [id number], [place]. tel:[phone] Referring Provider: Marlee Van, [address], [place], [address]. tel:[phone] Family History Family Member Type Diagnosis Age [...] disease Payers Payer name Insurance type Covered alliance party ID Authoriza tion(s) Medicare [place] MB [id number] Hum[employer] CI [id number] Social History Type Description Quantity Date Captured [...]
--- OUTSIDE RECORDS SUMMARY | 2024-11-07 06:00 | XMS_ITS ---
Author Organization The [facility] in [place] Address [address] [place] [address] Care Team Providers Care Assembler [employer] Name Role Phone Dewayne Haile Primary Care Provider [phone] Allergies Allergen (clinical drug ingredient) Drug/Non Drug Allergy documented on EMR Reaction Allergy Type Onset Date Status tramadol traMADol HCl lightheaded Drug Allergy Ac tive lisinopril Lisinopril cough Drug Allergy Activ e Reason For Referral Diagnosis 1 Chest pain (R07.9) Referral Organization [facility] Medicine Referring Provider First Name Haile Referring Provider Last Name Dewayne Referring Provider Speciality Family Med yasir Referred Provider Lucas Mota Referred Provider Specialty Cardiology Referral Priority Routine REASON FOR VISIT Presents to office with for f/u on stress test., Also in ER last for Rt knee injury. Was chasing her dog and left a pop in the knee Medications Medication SIG (Take, Route, Frequency, Duration) Notes Start Date End Date Status Norvasc 10 MG 2 tablet Orally Once a day for 30 days 09/23/2024 Active Social History Tobacco Use: Social History Observation Description Date Details (start date - stop date) Never Smoker NA - NA Tobacco Use/Smoking Question Answer Notes Patient is a nonsmoker AUDIT-C (Standard) Question Answer Notes Did you have a drink containing alcohol in the p ast year? No Points 0 Interpretation Negative Problems Problem Type SNOMED Code ICD Code Onset Dates Problem Status W/U Status Risk Notes Problem Internal derangement of knee (82784074) Internal derangement of knee (M23.90) Active confirmed Vital Signs Weight 161.8 lbs 11/07/2024 Height 65 in 11/07/2024 Blood pressure systolic 144 mm Hg 11/08/19 25 Blood pressure diastolic 80 mm Hg 025 BMI 26.92 kg/m2 11/07/2024 Encounters Encounter Location Date Provider Diagnosis [facility] [address] [place] [address] 11/07/2024 Haile Buchanan Encounter for immunotherapy Z29.8 ; Chest pain R07.9 and Internal derangement of knee M23.90 Assessments Encounter Date Diagnosis (ICD Code) Assessment Notes Treatment Notes Treatment Clinical Notes Section Notes 11/07/2024 Encounter for immunotherapy (ICD-10 - Z29.8) 11/07/2024 Chest pain (ICD-10 - R07.9) nbeeds referrla to Cradiology 11/07/2024 Internal derangement of knee (ICD-10 - M23.90) Plan Of Treatment Treatment Notes Assessment Notes Chest pain nbeeds referrla to C radiology Pending Test Test Name Order Date MRI KNEE RT WO CON 11/07/2024 Referrals Referral Date Details 11/07/2024 11/07/2024, Lucas wilder Procedure Notes * Category Sub-Category Detail Notes Allergy Allergy Shot Administered Vial A Allergy: Formulation :, Expires:, Arm: Vial B Formulation:, Allerg ies: Expires:, Arm: Progress Notes * ROBER Reva RosasDOB: [birth year] (69 yo F)Acc No.[id number]:11/07/2024 Progress Note Patient: Reva ELENA Provider: Denny Buchanan ([facility])MD :1955 A ge:69 Y S ex:Female Date:11/07/2024 Address:[address] [place], [place] [id number] Check In:09:49 AM ESTCheck O ut:10:27 AM EST Subjective: * Chief Complaints: * P resents to office with for f/u on stress test.Also in ER last for Rt knee injury. Was chasing her dog and left a pop in the knee * HPI: G eneral: Csing dog and knee popped - and went to er qtn + Tereso consistene tih torn wating on dye part of stress - but induced PVC withthe stress - need to see cardiologyPatient presents today for allergy injection. * ROS: E ENT: hearing changes d enies. v isual changes d enies.?non-healing mouth sores d enies. s wollen glands or neck lumps d enies. h oarseness d enies. s ore throat d enies. d ifficulty swallowing d enies. n ose bleeds d enies. n yina congestion d enies. e ar ache d enies. e ar discharge?denies. r inging in ears d enies. l ight sensitivity d enies. e ye pain d enies. b lurring d enies. e ye irritation d enies. d ouble vision d enies.?vision loss d enies. G eneral/Constitutional: Sweats: D enies. F atigue d enies. S leep problems d enies. A norexia d enies. M alaise d enies. W eight loss d enies.?Fatigue or Weakness d enies. F ever or Chills d enies. C ardiovascular: Shortness of Breath w/lying flat d enies. L ightheadedness/dizziness d enies. C hest tightness/ heavy pressure d enies. S welling of legs, ankles, or feet d enies. W aking up with shortness of breath d enies. C hest pain denies. P alpitations d enies. W eight gain d enies. R espiratory: Chronic or frequent cough d enies. C oughing up blood?denies. D ifficulty breathing d enies. P roductive cough d enies. S noring?denies. S hortness of breath that awakens from sleep (PND) d enies. C hest pain d enies. S putum production d enies. W heezing d enies. M usculoskeletal: Joint pain d enies. J oint Fluid d enies. B ack pain d enies. K nee pain d enies. N yojana pain d enies. J oint Stiffness d enies. M uscle cramps d enies. W eakness of muscles d enies. A rthritis d enies. M uscle aches d enies. P ain in shoulder(s) d enies. S wollen joints d enies. * Active Problem List K57.90 Diverticulosis Modified On:03/19/2023 Status:confirmed K29.70 Gastritis Modified On:03/19/2023 Status:confirmed E66.3 Over weight Modified On:03/19/2023 Status:confirmed D22.9 Nevus Modified On:03/19/2023 Status:confirmed L29.9 Pruritus Modified On:03/19/2023 Status:confirmed Z86.19 History of hepatitis Modified On:03/19/2023 Status:confirmed L30.9 Eczema Modified On:04/23/2023 Status:confirmed B19.20 Hepatitis C Modified On:03/19/2023 Status:confirmed I10 Essential Hypertensi on Modified On:04/23/2023 Status:confirmed M23.90 Internal derangement of knee Modified On:11/07/2024 Status:confirmed * Medical History: * Surgical History: r ight hand surgery * Hospitalization/Major Diagno stic Procedure: * Family History: F ather: , glaucoma. M other: , diagnosed with Unspecified heart disease.?Sister(s): , breast cancer. * Social History: T obacco Use: T obacco Use/Smoking P atient is a n onsmoker D rug/Alcohol: A DOLORES-C (Standard) D id you have a drink containing alcohol in the past year? N o P oints 0 I nterpretation N egative * Medications: T akingNorvasc(amLODIPine Besylate) 10 MG Tablet 2 tablet Orally Once a day Medication List reviewed and reconciled with the patientTaking Norvasc(amLODIPine Besylate) 10 MG Tablet 2 tablet Orally Once a day Medication List reviewed and reconciled with the patient * Allergies: L isinopril: coughtraMADol HCl: lightheadedno[Allergies Verified] Objective: * Vitals: W t:161.8lbs, Ht: 65 in, BP:144/80mm Hg, BMI:26.92Index, Ht-cm: 165.1 cm, Wt-k.39 kg. * Examination: P hysical Exam: GENERAL: w ell developed, well nourished, in no acute distress. HEAD: n ormocephalic/atraumatic. EYES: p upils equal, round and reactive to light, conjunctivae and sclerae normal. EARS: n o deformity or lesion of external ear, canals and TM appear normal bilaterally, TM's intact, not inflamed with normal light reflex, hearing grossly normal to conversational speech. NOSE: n o deformity, discharge, inflammation, or lesions.? MOUTH: m ucous membranes moist, normal oropharynx and posterior pharynx without lesions or exudates, tongue normal, dentition normal. NECK: n yojana supple, no masses or palpable cervical nodes, trachea midline, thyroid without nodules, masses, tenderness, or enlargement. CHEST: n o chest wall deformity, no chest wall tenderness.? LUNGS: n ormal respiratory effort and clear to auscultation, no wheezes, rales, or rhonchi, good air exchange. CARDIO: r egular rate and rhythm, normal S1 and S2, nor murmur, rub, or gallop. PULSES: n ormal capillary refill. ABDOMEN: s oft, non-distended, non-tender, no masses. MUSCULOSKELETAL: n o deformity or scoliosis noted, normal range of motion, joints normal, no erythema, edema, effusion, or ecchymosis. EXTREMITY: R kne wiht mod effusio - medil joint line pain wtih + Tereso. NEUROLOGIC: g rossly normal. SKIN: n o rashes, ulcerations, or suspicious lesions. LYMPH NODES: n o cervical adenopathy, nodes normal. MENTAL STATUS: a lert and oriented x3, normal mood and affect. Assessment: * Assessment: 1. C hest pain - R07.9 (Primary) 2 . E ncounter for immunotherapy - Z29.8? 3. I nternal derangement of knee - M23.90 Plan: * Treatment: 2. I nternal derangement of knee I maging: MRI KNEE RT WO CON * Procedures: A llergy: Allergy Shot A dministered. Vial A A llergy: Formulation:, Expires:, Arm:. Vial B F ormulation:, Allergies: Expires:, Arm:. * Procedure Codes: * Preventive Medicine: Annual Wellness: E YE EXAM P atient is up to date, Patient is up to date. D ENTAL EXAM P atient is up to date, Patient is up to date. I MMUNIZATIONS P atient is up to date, Patient is up to date. E DUCATION & COUNSELING P atient was provided counseling and/or anticipatory on: nutrition, physical activity, sexual behavior and STDs, contraception and mental health, Patient was provided counseling and/or anticipatory on: nutrition, physical activity, sexual behavior and STDs, contraception and mental health. Screenings/Counseling: B DE ACTION PLAN Above Normal BMI Follow-up D ietary management education, guidance, and counseling See treatment section of progress note for complete details of management plan. F ALL RISK SCREENING Fall Risk Assessment: N o falls in the past year * * Sign off status: Completed Visit Status: C HK (Check Out) true * Provider: Denny Buchanan ([facility])MD Date: 0 11/07/2024 Generated for Alistairi davidson/Melinda/eTransmitting on: 0 11/14/2024 06:48 AM EDT History and Physical Notes * HPI (History of Present Illness) Category Sub-Category Detail Notes Category Not es General Csing dog and knee popped - and went to er qtn + Tereso consistene tih torn wating on dye part of stress - but induced PVC withthe stress - need to see cardiology Patient presents today for allergy injection Examination Category Sub-Category Detail Notes Category Not es Physical Exam GENERAL: well developed, well nourished, in no acute distress HEAD: normocephalic/atraum atic EYES: pupils equal, round and reactive to light, conjunctivae and sclerae normal EARS: no deformity or lesi on of external ear, canals and TM appear normal bilaterally, TM's intact, not inflamed with normal light reflex, hearing grossly normal to conversational speech NOSE: no deformity, discha rge, inflammation, or lesions MOUTH: mucous membranes bobby st, normal oropharynx and posterior pharynx without lesions or exudates, tongue normal, dentition normal NECK: neck supple, no mass es or palpable cervical nodes, trachea midline, thyroid without nodules, masses, tenderness, or enlargement CHEST: no chest wall deform ity, no chest wall tenderness LUNGS: normal respiratory e ffort and clear to auscultation, no wheezes, rales, or rhonchi, good air exchange CARDIO: regular rate and rhy thm, normal S1 and S2, nor murmur, rub, or gallop PULSES: normal capillary ref ill ABDOMEN: soft, non-distended, non-tender, no masses RECTAL: MUSCULOSKELETAL: no deformity or scol iosis noted, normal range of motion, joints normal, no erythema, edema, effusion, or ecchymosis EXTREMITY: R kne wiht mod effus io - medil joint line pain wtih + Tereso NEUROLOGIC: grossly normal SKIN: no rashes, ulceratio ns, or suspicious lesions LYMPH NODES: no cervical adenopat hy, nodes normal MENTAL STATUS: alert and oriented x 3, normal mood and affect Consultation Request Notes Referral Date Referring Provider Referred Provider Not es 11/07/2024 Haile Buchanan George
--- OUTSIDE RECORDS SUMMARY | 2024-11-10 05:46 | XMS_ITS ---
Author Organization The [facility] in [place] Address [address] [place] [address] Care Team Providers Care Certified Prosthetist Vice President Name Role Phone Haile Buchanan Primary Care Provider [phone] REASON FOR VISIT refill Medications Medication SIG (Take, Route, Frequency, Duration) Notes Start Date End Date Status Norvasc 10 MG 1 tablet Orally Once a day for 30 days 09/23/2024 Active Encounters Encounter Location Date Provider Diagnosis [id number] [place] [address] 11/10/2024 Haile Buchanan Essential Hypertens ion I10 Assessments Encounter Date Diagnosis (ICD Code) Assessment Notes Treatment Notes Treatment Clinical Notes Section Notes 11/10/2024 Essential Hypertension (ICD-10 - I10) Plan Of Treatment Medication Medication Name Sig Start Date Stop Date Notes Norvasc 10 MG 1 tablet Orally Once a day for 30 days 09/23 Progress Notes * Reva RICHTERDOB: [birth year] (69 yo F)Acc No.[id number]:11/10/2024 Patient: Reva ELENA :1955 A ge:69 Y S ex:Female Address:[address] [place] [id number] * Refills Refill Norvasc Tablet, 10 MG, Orally, 30 Tablet, 1 tablet, Once a day, 30 days, Refills=11 * true * Date: Generated for Johnna cedeño/Melinda/Júnior on: 0 11/14/2024 06:48 AM EDT
--- NOTE | 2024-11-14 06:48 | MR_ITS ---
[address] [address] Patient Name: CHRISTY RICHTER MRN: [id number] date: 1955 Sex: F Assigned Patient Location: MRI Current Patient Location: MRI Accession/Order Number: [id number] Exam Date: 11/14/2024 12:15 Report Date: 11/14/2024 12:28 At the request of: RE CURTIS MD Procedure: MR knee RT wo con MR knee RT wo con 11/14/2024 7:40 AM SIGNS AND SYMPTOMS: Acute right medial knee pain PROTOCOL: Multiplanar multisequence MR images of the right knee without contrast COMPARISON: 11/03/2024 FINDINGS: Fluid: There is a small joint effusion.. Medial compartment: Medial meniscus: There is a horizontally oriented tear extending through the body and posterior horn of the medial meniscus. No displaced fragments. The body of the medial meniscus is partially extruded from the joint space. Medial collateral ligament: Intact. 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 Medial tibial plateau cartilage: There is partial thickness chondromalacia. Lateral compartment: Lateral meniscus: Intact. Lateral collateral ligament: Intact. Lateral femoral condyle cartilage: Preserved. Lateral tibial plateau cartilage: Preserved. Posterolateral corner: Popliteus tendon: Intact. Popliteofibular ligament: Intact. Proximal tibiofibular joint: Normal. Anterior compartment: Alignment: Normal. Quadriceps tendon: Intact. Patellar tendon: Intact. Retinaculum: Medial intact. Lateral intact. Patellar cartilage: There is full thickness chondromalacia along the apex with subchondral cystic change.. Trochlea: There is partial thickness chondromalacia. . Plica: None. Hoffa fat pad: There is a ganglion cyst which extends posteriorly to the base of the anterior cruciate ligament. This measures 3.5 x 2.0 x 0.6 cm in greatest dimension. Intercondylar compartment: Anterior cruciate ligament: A ganglion cyst extends into the base of the anterior cruciate ligament.. The ligament is intact Posterior cruciate ligament: Intact. Bones (other than subarticular marrow): Normal. Muscles: Normal. Vessels: Normal. Nerves: Normal. MR/MR knee RT wo con IMPRESSION: There is a horizontally oriented tear extending through the body and posterior horn of the medial meniscus. No displaced fragments. The body of the medial meniscus is partially extruded from the joint space. There is a ganglion cyst which extends posteriorly to the base of the anterior cruciate ligament. This measures 3.5 x 2.0 x 0.6 cm in greatest dimension. The anterior cruciate ligament is intact. There is full thickness chondromalacia along the patellar apex with subchondral cystic change. There is full thickness chondromalacia along the medial femoral condyle with subchondral cystic change. Impression dictated by: Hunter Becerra M.D. 11/14/2024 12:28 PM Dictation Location: [place] [address] Electronically authenticated by: [id number] Y Date: 11/14/2024 12:28
--- OUTSIDE RECORDS SUMMARY | 2024-11-14 06:48 | XMS_ITS | Clinical Summary ---
Author Organization The [facility] Address [address] [place] [address] Care Team Providers Care Ged Instructor Name Role Phone Unavailable Primary Care Provider Unavailabl e Social History Tobacco Use Types Packs/Day Years Used Date Smoking Tobacco: Never Assessed Comments Unknown Sex and Gender Information Value Date Recorded Sex Assigned at Not on file Legal Sex Female 10:01 AM EDT Gender Identity Not on file Sexual Orientation Not on file Plan of Treatment Upcoming Encounters Date Type Department Care Team (Late st Contact Info) Description 11/24/2024 3:20 PM EDT Office Visit [facility] [address] [place] [address] Jocelin Rodríguez MD [address] [place] [address] Health Maintenance Due Date Last Done Comments CT Colonography 1955 Colonoscopy 1955 Colorectal Cancer Screening 1955 FIT-DNA 1955 FIT 1955 FOBT 1955 Medicare Annual Wellness (AWV) 1955 Sigmoidoscopy 1955 Depression Screening 1967 Adult Tetanus 1977 Mammogram 1995 Pneumococcal Vaccine: 50+ Years (1 of 1 - PCV) 2005 Zoster Vaccines (1 of 2) 2005 Fall Risk Screening 2020 COVID-19 Vaccine (4 - 2023-2 5 season) 2023 04/10/2021, 08/03/2020, 07/03/2020 Influenza Vaccine (#1) 2024 HIB Vaccines Aged Out No longer eligi ble based on patient's age to complete this topic HPV Vaccines Aged Out No longer eligi ble based on patient's age to complete this topic IPV Vaccines Aged Out No longer eligi ble based on patient's age to complete this topic Meningococcal B Vaccine Aged Out No l onger eligible based on patient's age to complete this topic Meningococcal Vaccine Aged Out No vitaliy salvador eligible based on patient's age to complete this topic Rotavirus Vaccines Aged Out No longer eligible based on patient's age to complete this topic Insurance [facility]
--- OUTSIDE RECORDS SUMMARY | 2024-11-14 06:48 | XMS_ITS | Clinical Summary ---
Author Organization [facility] Address [address] [place] [address] Care Team Providers Care Hand Funnel Coater Name Role Phone Unavailable Primary Care Provider [...]
--- OUTSIDE RECORDS SUMMARY | 2024-11-14 06:48 | XMS_ITS | Patient Health Record ---
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 Name Role Phone Haile Curtis Primary Care Provider [phone] Eileen Espinosa Unavailable [phone] Allergies Allergen (clinical drug ingredient) Drug/Non Drug Allergy documented on EMR Reaction Allergy Type Onset Date Status tramadol traMADol HCl lightheaded Drug Allergy Ac tive lisinopril Lisinopril cough Drug Allergy Activ e Results Component Value Reference Range Notes CBC AUTO DIFF Reviewed date:10/25/2024 07:12:58 PM Interpretation: Performing Lab: Notes/Report: [facility] , White Blood Count 6.6 4.0-11.0 10 [...] 0.00-0.03 10 3/uL Performing Lab: see note - [facility] LB Troponin I High Sensitivity Reviewed date:10/25/2024 07:12:58 PM Interpretation: Performing Lab: Notes/Report: [facility] , Troponin I High Sensitivity 7.2 4.0-51.3 pg/mL CUT-OFF POINTS HAVE BEEN ESTABLISHED BASED ON THE FOURTH UNIVERSAL DEFINITION OF MYOCARDIAL INFARCTION. THE UPPER REFERENCE LIMIT (URL) OF TROPONIN, DEFINED THE 99TH PERCENTILE OF cTnI DISTRIBUTION IN A REFERENCE POPULATION, HAS BEEN CONFIRMED THE DECISION THRESHOLD FOR [facility] DIAGNOSIS. 99TH PERCENTILE = 51.4 PG/ML NOTE: HIGH-SENSITIVITY TROPONIN ASSAY IS NOT INTENDED TO BE USED IN ISOLATION BUT SHOULD BE INTERPRETED IN CONJUNCTION WITH OTHER DIAGNOSTIC AND CLINICAL INFORMATION. Performing Lab: see note - [facility] LB XR chest 1V Reviewed date:10/25/2024 07:12:58 PM Interpretation: Performing Lab: Notes/Report: Source Facility: [place] [address] [place] [address] XRay Report Signed Patient: REVA RICHTER MR#: [id number] : 1955 Acct:[id number] Age/Sex: 69 / F ADM Date: 10/25/24 Loc: ER Attending Dr: Ordering Physician: Marine Pickett Date of Service: 10/25/24 Procedure(s): XR chest 1V Accession Number(s): [id number] cc: Re Curtis M.D.; Marine Pickett [place] [address] Patient Name: REVA RICHTER MRN: [id number] date: 1955 Sex: F Assigned Patient Location: ED.MAIN Current Patient Location: ED.MAIN Accession/Order Number: [id number] Exam Date: 10/25/2024 15:50 Report Date: 10/25/2024 [...] Becerra M.D. 10/25/2024 3:53 PM Dictation Location: [place] [address] Electronically authenticated by: [id number] Y Date: 10/25/2024 15:53 Dictated By: Hunter Becerra M.D. Signed By: 10/25/24 1555 DD/ 1553 TD/TT: Ec Teacher: [place] [address] XRay Report Signed Patient: AUSTEN RICHTER MR#: [id number] : 1955 Acct:[id number] Age/Sex: 69 / F ADM Date: 10/25/24 Loc: ER Attending Dr: Ordering Physician: Marine Pickett Date of Service: 10/25/24 Procedure(s): XR chest 1V Accession Number(s): [id number] cc: Re Curtis M.D. ; Marine Pickett [place] [address] Patient Name: REVA RICHTER MRN: [id number] date: 1955 Sex: F Assigned Patient Location: ED.MAIN Current Patient Loca tion: ED.MAIN Accession/Order Numb er: [id number] Exam Date: 10/25/2024 15:50 Report Date: 10/25/2024 [...] Becerra M.D. 10/25/2024 3:53 PM Dictation Location: [place] [address] Electronically authenticated by: [id number] Y Date: 10/25/2024 15:53 Dictated By: Hunter Becerra M.D. 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 Signed By: 10/27/24902 DD/ 1544 TD/TT: Ec Teacher: Prothrombin Time INR Reviewed date:10/25/2024 07:12:58 PM Interpretation: Performing Lab: Notes/Report: [facility] , Prothrombin Time 10.9 9.0-11.6 sec INR 1.03 DESIRED INR: 2.0-3.0 CONDITIONS NOT LISTED BELOW 2.5-3.5 FOR PROSTHETIC HEART VALVE REPLACEMENT 2.5-3.5 RECURRENT THROMBOSIS Performing Lab: see note ML - [facility] LB PROF 14(COMP METB) Reviewed date:10/25/2024 07:12:58 PM Interpretation: Performing Lab: Notes/Report: [facility] , Sodium 141 136-145 mmol/L Potassium 3.6 [...] 1.0 Performing Lab: see note ML - [facility] LB TSH Reviewed date:09/06/2024 08:15:04 PM Interpretation: Performing Lab: Notes/Report: [facility] , Thyroid Stimulating Hormone 1.798 0.358-3.740 uIU/mL Performing Lab: see note ML - [facility] LB T4 Reviewed date:09/06/2024 08:15:04 PM Interpretation: Performing Lab: Notes/Report: [facility] , T4 Thyroxine 8.50 4.80-13.90 ug/dL Performing Lab: see note ML - [facility] LB PROF 14(COMP METB) Reviewed date:09/06/2024 08:15:04 PM Interpretation: Performing Lab: Notes/Report: [facility] , Sodium 142 136-145 mmol/L Potassium 4.5 [...] 1.0 Performing Lab: see note ML - [facility] LB LIPID PROFILE Reviewed date:09/06/2024 08:15:04 PM Interpretation: Performing Lab: Notes/Report: [facility] , Triglycerides 68 <=150 mg/dL Cholesterol 174 <=200 mg/dL HDL Cholesterol 79 40-60 mg/dL > or =60 mg/dl - LOW CARDIOVASCULAR RISK <40 mg/dl - HIGH CARDIOVASCULAR RISK LDL Cholesterol Calculated 82.0 <100 mg/dl OPTIMAL 100-129 mg/dl NEAR OR ABOVE OPTIMAL 130-159 mg/dl BORDERLINE HIGH 160-189 mg/dl HIGH >190 mg/dl VERY HIGH VLDL CHOLESTEROL 13.6 Chol HDL Ratio 2.2 3.3 - 4.4 LOW RISK 4.4 - 7.1 AVERAGE RISK 7.1 - 11.0 MODERATE RISK >11.0 HIGH RISK Performing Lab: see note ML - [facility] LB IRON Reviewed date:09/06/2024 08:15:04 PM Interpretation: Performing Lab: Notes/Report: [facility] , Iron 81.0 50.0-170.0 ug/dL Performing Lab: see note ML - [facility] LB GLYCOHEMOGLOBIN A1C Reviewed date:09/06/2024 08:15:04 PM Interpretation: Performing Lab: Notes/Report: [facility] , Glycohemoglobin A1C 5.9 4.5-6.2 % ADA RECOMMENDED LIMIT 4.0 - 6.0 ADA THERAPEUTIC TARGET < 7.0 ACTION SUGGESTED > 7.0 Estimated Average Glucose 123 Performing Lab: see note ML - [facility] LB FREE T3 Reviewed date:09/06/2024 08:15:04 PM Interpretation: Performing Lab: Notes/Report: [facility] , Free T3 3.40 2.18-3.98 pg/mL Performing Lab: see note ML - [facility] LB CBC AUTO DIFF Reviewed date:09/06/2024 08:15:04 PM Interpretation: Performing Lab: Notes/Report: [facility] , White Blood Count 4.4 4.0-11.0 10 [...] Performing Lab: see note ML - [facility] LB XR KNEE RT 3V Reviewed date:11/05/2024 02:54:05 PM Interpretation: Performing Lab: Notes/Report: Source Facility: [facility] [place] [address] [place] [id number] XRay Report Signed Patient: REVA RICHTER MR#: [id number] : 1955 Acct:[id number] Age/Sex: 69 / F ADM Date: 11/03/24 Loc: ER Attending Dr: Ordering Physician: Tonio Patterson Date of Service: 11/03/24 Procedure(s): XR knee RT 3V Accession Number(s): [id number] cc: Tonio Patterson; Re Curtis M.D. [place] [address] Patient Name: REVA RICHTER MRN: [id number] date: 1955 Sex: F Assigned Patient Location: ED.MAIN Current Patient Location: ED.MAIN Accession/Order Number: [id number] Exam Date: 11/03/2024 22:55 Report Date: 11/03/2024 22:57 At the request of: TONIO PATTERSON MD Procedure: XR knee RT 3V XR knee RT 3V 11/03/2024 9:38 PM SIGNS AND SYMPTOMS: Acute right knee pain PROTOCOL: Frontal, lateral, and oblique radiographs of the right knee COMPARISON: None FINDINGS: There is mild narrowing of the medial weightbearing joint space. Patellofemoral joint space is intact. No soft tissue swelling. No joint effusion. No fracture. XR/XR knee RT 3V IMPRESSION: No acute bony injury. There is mild narrowing of the medial weightbearing joint space. Impression dictated by: Hunter Becerra M.D. 11/03/2024 10:57 PM Dictation Location: [place] [address] Electronically authenticated by: [id number] Y Date: 11/03/2024 22:57 Dictated By: Hunter Becerra M.D. Signed By: 11/03/242299 DD/ 56 TD/TT: Ec Teacher: [place] [address] XRay Report Signed Patient: AUSTEN RICHTER MR#: [id number] : 1955 Acct:[id number] Age/Sex: 69 / F ADM Date: 11/03/24 Loc: ER Attending Dr: Ordering Physician: Tonio Patterson Date of Service: 11/03/24 Procedure(s): XR kne e RT 3V Accession Number(s): [id number] cc: Tonio Patterson; Re Curtis M.D. [place] [id number] Patient Name: REVA RICHTER MRN: [id number] date: 1955 Sex: F Assigned Patient Location: ED.MAIN Current Patient Loca tion: ED.MAIN Accession/Order Numb er: [id number] Exam Date: 11/03/2024 22:55 Report Date: 11/03/2024 22:57 At the request of: TONIO PATTERSON MD Procedure: XR knee RT 3V XR knee RT 3V 025 9:38 PM SIGNS AND SYMPTOMS: Acute right knee pain PROTOCOL: Frontal, lateral, and oblique radiographs of the right knee COMPARISON: None FINDINGS: There is mild narrow ing of the medial weightbearing joint space. Patellofemoral joint space is intact. No soft tissue swelling. No joint effusion. No fracture. X R/XR knee RT 3V IMPRESSION: No acute bony injury. There is mild narrow ing of the medial weightbearing joint space. Impression dictated by: Hunter Becerra M.D. 11/03/2024 10:57 PM Dictation Location: [place] [address] Electronically authenticated by: [id number] Y Date: 11/03/2024 22:57 Dictated By: Hunter Becerra M.D. Signed By: 11/03/242299 DD/ 56 TD/TT: Ec Teacher: Troponin I High Sensitivity Reviewed date:10/25/2024 07:12:58 PM Interpretation: Performing Lab: Notes/Report: [facility] , Troponin I High Sensitivity 7.5 4.0-51.3 pg/mL CUT-OFF POINTS HAVE BEEN ESTABLISHED BASED ON THE FOURTH UNIVERSAL DEFINITION OF MYOCARDIAL INFARCTION. THE UPPER REFERENCE LIMIT (URL) OF TROPONIN, DEFINED THE 99TH PERCENTILE OF cTnI DISTRIBUTION IN A REFERENCE POPULATION, HAS BEEN CONFIRMED THE DECISION THRESHOLD FOR [facility] DIAGNOSIS. 99TH PERCENTILE = 51.4 PG/ML NOTE: HIGH-SENSITIVITY TROPONIN ASSAY IS NOT INTENDED TO BE USED IN ISOLATION BUT SHOULD BE INTERPRETED IN CONJUNCTION WITH OTHER DIAGNOSTIC AND CLINICAL INFORMATION. Performing Lab: see note ML - [facility] Reason For Referral Diagnosis 1 Chest pain (R07.9) Referral Organization [facility] Referring Provider First Name Haile Referring Provider Last Name Dewayne Referring Provider Speciality [facility] yasir Referred Provider Lucas Mota Referred Provider Specialty Cardiology Referral Priority Routine Medications Medication SIG (Take, Route, Frequency, Duration) [...] W/U Status Risk Notes Problem Hepatitis C (98291283) Hepatitis C (B19.20) Active confirmed Problem Eczema (97601268) Eczema (L30.9) Active confirmed Problem Diverticular disease of colon (605586446) Diverticulosis (K57.90) Active confirmed Problem Gastritis (9162137) Gastritis (K29.70) Active confirmed Problem Pruritus (109551520) Pruritus (L29.9) Active confirmed Problem Overweight (320190494) Over weight (E66.3) Active confirmed Problem Nevus (1895839401) Nevus (D22.9) Active confirmed Problem History of infectious disease (148978061) History of hepatitis (Z86.19) Active confirmed Problem Internal derangement of knee (02962608) Internal derangement of knee (M23.90) Active confirmed Problem Essential hypertension (71255600) Essential Hypertension (I10) Active confirmed Vital Signs Heart Rate 93 /min 10/25/2024 Temperature 97.8 degrees Fahrenheit 10/25/2024 Blood pressure diastolic 80 mm Hg 11/07/2024 Height 65 in 11/07/2024 Blood pressure systolic 144 mm Hg 11/07/2024 Weight 161.8 lbs 11/07/2024 BMI 26.92 kg/m2 11/07/2024 Procedures Procedure Date Ordered Date Performed Result Body Sit e EKG w Interp & Report - performed 10/25/2024 N/ A CARDIO Stress Test - Treadmill Exercise 10/25/2024 N/A Encounters Encounter Location Date Provider Diagnosis [facility] [address] [facility] [place] [place] [address] 11/10/2024 Haile Hoy Essential Hypertensi on I10 [facility] [address] [facility] [place] [place] [address] 08/09/2024 Hiale Ruizy [facility] [address] [place] [address] 08/23/2024 Haile Hoy Essential Hypertensi on I10 [facility] [address] [place] [address] 09/06/2024 Haile Josephy [facility] [address] [place] [address] 09/23/2024 Haile Hoy Essential Hypertensi on I10 [facility] [address] [place] [address] 10/26/2024 Haile Hoy Essential Hypertensi on I10 [facility] [address] [place] [address] 11/05/2024 Haile Ruizy [facility] [address] [place] [address] 09/05/2024 Haile Ruizy Essential Hypertensi on I10 ; Over weight E66.3 ; Hepatitis C B19.20 and Eczema L30.9 [facility] [address] [place] [address] 10/25/2024 Eileen Francisca Essential Hypertensi on I10 and Chest discomfort R07.89 [facility] [address] [place] [address] 11/07/2024 Haile Curtis Encounter for immunotherapy Z29.8 ; Chest pain R07.9 and Internal derangement of knee M23.90 [facility] [address] [place] [address] 09/23/2024 Haile Curtis Essential Hypertensi on I10 Assessments Encounter Date Diagnosis (ICD Code) Assessment Notes Treatment Notes Treatment Clinical Notes Section Notes 09/05/2024 Essential Hypertension (ICD-10 - I10) 09/05/2024 Over weight (ICD-10 - E66.3) 09/23/2024 Essential Hypertension (ICD-10 - I10) 10/25/2024 Essential Hypertension (ICD-10 - I10) 10/25/2024 Chest discomfort (ICD-10 - R07.89) EKG stress test to ER for eval EKG here possible [facility] 11/07/2024 Encounter for immunotherapy (ICD-10 - Z29.8) 11/07/2024 Chest pain (ICD-10 - R07.9) nbeeds referrla to Cradiology 08/23/2024 Essential Hypertension (ICD-10 - I10) 09/23/2024 Essential Hypertension (ICD-10 - I10) 10/26/2024 Essential Hypertension (ICD-10 - I10) 11/10/2024 Essential Hypertension (ICD-10 - I10) 11/07/2024 Internal derangement of knee (ICD-10 - M23.90) 09/05/2024 Hepatitis C (ICD-10 - B19.20) 09/05/2024 [...] CARDIO Stress Test - Treadmill Exercise 10/25/2024 MRI KNEE RT WO CON 11/07/2024 THYROID PANEL (T4/TSH/FREE T3) 5 THYROID PANEL (T4/TSH/FREE T3) 4 MM screening mammo BI 09/05/2024 CMP (COMP MET WRIGHT) w/eGFR CKD-EPI 2024 CBC WITH DIFF 09/05/2024 Insurance Providers Payer Name Payer Address Payer Phone Subscriber Number Group Number Insured Name Patient Relationship to Insured Coverage Start Date Coverage End Date [place] [address] [place] [address] [id number] Reva Richter Self - patient is the insured [employer] SUPPLEMENT [address] [address] [place], [place] [id number] Reva Richter Self - patient is the insured Medical (General) History Medical History History ICD Code Diverticulosis K57.90 Gastritis K29.70 Over weight E66.3 Nevus D22.9 Pruritus L29.9 History of hepatitis Z86.19 Eczema L30.9 Hepatitis C B19.20 Essential Hypertension I10 Surgical History Surgery Date(Month/Year) right hand surgery
--- OUTSIDE RECORDS SUMMARY | 2024-11-14 06:48 | XMS_ITS | CCD ---
Author Organization [facility] Care Team Providers Care Psychometric Examiner Name Role Phone Re Buchanan Primary Care Provider [phone] Re Buchanan Attending Provider Marilee Choe Unavailable [...] Facility (1 source) Lisinopril Drug Allergy Unknown [facility] Other (5 sources) Metoprolol; Translations: [metoprolol] Drug Allergy Nausea (finding) [facility] (1 source) No Known Medication Allergies; Translations: [No Known Medication Allergies] Propensity to adverse reactions (disorder) [facility] Repository Medications Current Medications Medication Drug [...] lesion left cheek and skin tag left worship; pathology on cheek lesion consistent with skin [...] SARS-CoV-2 (COVID-19) mRNA-1273 vaccine 07/03/2020 Recorded Normal [facility] Comment on above: Result Comment: Elec tronically Signed By: HUGO SAXENA, Damaso Gonzalez\.br\Date and Time Signed: 12/15/23 14:02 EDT Surgical Pathology Reporton 12-11-2023 Surgical Pathology Report [address] [place] [address]- Surgical Pathology Report Collected Date/Time: 12/08/2023 14:33 [...] cm in greatest dimension, totally submitted. (MG) MSG:[facility] Microscopic Description Microscopic examination performed unless gross only specified. Normal [facility] Comment on above: Performed By: #### [id number] #### [facility] [address] [place] [address] Ambulatory Visit Summaryon 0 12-08-2023 Ambulatory Visit [...] EDT With: HUGO SAXENA, Damaso Gonzalez Where: [address], [address], [place] [id number]- Medications What How Much When Instructions Unchanged [...] for choosing us for your care. Normal [facility] General Surgery Office/Clini c Noteon 12-08-2023 [...] Ordered: Exc Face-Mm B9+Ligia 0.5 < [place]m [id number] Office Visit No Charge Pathology Tissue Exam Remove skin tags 15 or less 64670 2. Skin tag (L91.8: Other hypertrophic disorders [...] 07/03/2020 Recorded Normal [facility] Comment on above: Result Comment: Elec tronically [...] for choosing us for your care. Normal [facility] Physician Referralon 024 Physician Referral [id number] #1.00TIFF Normal [facility] Physician Referralon 024 Physician Referral [id number] #1.00TIFF Normal [facility] CBC AUTO DIFFon 02-10-2022 BASO # 0.0 103/ul Normal 0.0-0.1 [facility] Comment on above: Performed By: #### C BC #### [facility] [address] [place] [address] Dr. Martha Spain Basophils/100 WBC (Bld) 0.3 % Normal 0.2-2.0 [facility] Comment on above: Performed By: #### C BC #### [facility] [address] [place] [address] Dr. Martha Spain EO # 0.1 103/ul Normal 0.0-0.7 [facility] Comment on above: Performed By: #### C BC #### [facility] [address] [place] [address] Dr. Martha Spain Eosinophils/100 WBC (Bld) 1.1 % Normal 0.9-7.0 [facility] Comment on above: Performed By: #### C BC #### [facility] [address] [place] [address] Dr. Martha Spain Erythrocyte distribution width (RBC) [Ratio] 12.8 % Normal 11.0-15.0 [facility] Comment on above: Performed By: #### C BC #### [facility] [address] [place] [address] Dr. Martha Spain Hematocrit (Bld) [Volume fraction] 41.2 % Normal 36.0-48.0 [facility] Comment on above: Performed By: #### C BC #### [facility] [address] [place] [address] Dr. Martha Spain Hemoglobin (Bld) [Mass/Vol] 13.5 g/dL Normal 12.0-16.0 [facility] Comment on above: Performed By: #### C BC #### [facility] [address] [place] [address] Dr. Martha Spain IG # 0.02 10e3/ul Normal 0.00-0.03 [facility] Comment on above: Performed By: #### C BC #### [facility] [address] [place] [address] Dr. Martha Spain IG % 0.3 % Normal 0.0-0.5 [facility] Comment on above: Performed By: #### C BC #### [facility] [address] [place] [address] Dr. Martha Spain LYMPH # 1.6 103/ul Normal 1.2-3.8 [facility] Comment on above: Performed By: #### C BC #### [facility] [address] [place] [address] Dr. Martha Spain Lymphocytes/100 WBC (Bld) 24.3 % Normal 20.5-60.0 [facility] Comment on above: Performed By: #### C BC #### [facility] [address] [place] [address] Dr. Martha Spain MANUAL DIFF REQ NO Normal [facility] Comment on above: Performed By: #### C BC #### [facility] [address] [place] [address] Dr. Martha Spain MCH (RBC) [Entitic mass] 29.3 pg Normal 26.7-34.0 [facility] Comment on above: Performed By: #### C BC #### [facility] [address] [place] [address] [address] Martha Spain MCHC (RBC) [Mass/Vol] 32.8 g/dL Normal 29.9-35.2 [facility] Comment on above: Performed By: #### C BC #### [facility] [address] [place] [address] [address] Martha Spain MCV (RBC) [Entitic vol] 89.6 fL Normal 81.0-99.0 [facility] Comment on above: Performed By: #### C BC #### [facility] [address] [place] [address] Dr. Martha Spain MONO # 0.5 103/ul Normal 0.3-0.8 [facility] Comment on above: Performed By: #### C BC #### [facility] [address] [place] [address] Dr. Martha Spain Monocytes/100 WBC (Bld) 7.4 % Normal 1.7-12.0 [facility] Comment on above: Performed By: #### C BC #### [facility] [address] [place] [address] Dr. Martha Spain NEUT # 4.4 103/ul Normal 1.4-6.5 [facility] Comment on above: Performed By: #### C BC #### [facility] [address] [place] [address] Dr. Martha Spain Neutrophils/100 WBC (Bld) 66.6 % Normal 43.0-75.0 [facility] Comment on above: Performed By: #### C BC #### [facility] [address] [place] [address] [address] Martha Spain Platelet mean volume (Bld) [Entitic vol] 10.8 fL Normal 9.5-13.5 [facility] Comment on above: Performed By: #### C BC #### [facility] [address] [place] [address] [address] Martha Spain PLT 158 103/ul Normal 150-450 [facility] Comment on above: Performed By: #### C BC #### [facility] [address] [place], [place] [address] Dr. Martha Spain RBC 4.60 106/ul Normal 4.20-5.40 [facility] Comment on above: Performed By: #### C BC #### [facility] [address] [place], [place] [address] Dr. Martha Spain WBC 6.7 103/ul Normal 4.0-11.0 [facility] Comment on above: Performed By: #### C BC #### [facility] [address] [place], [place] [address] ABD/PELV W CONon [...] LYNNETTE LEGGETT Date: 2022-02-10 11:03 Normal [facility] PROF 14(COMP METB)on 02-10- 022 Albumin [Mass/Vol] 4.0 g/dL Normal 3.4-5.0 [facility] Comment on above: Performed By: #### C MP #### [facility] [address] [place] [address] Dr. Martha Spain Albumin/Globulin [Mass ratio] 1.1 {ratio} Normal [facility] Comment on above: Performed By: #### C MP #### [facility] [address] [place] [address] [address] Martha Spain ALP [Catalytic activity/Vol] 87 U/L Normal 46-116 [facility] Comment on above: Performed By: #### C MP #### [facility] [address] [place] [address] Dr. Martha Spain ALT [Catalytic activity/Vol] 44 U/L Normal 14-59 [facility] Comment on above: Performed By: #### C MP #### [facility] [address] [place] [address] Dr. Martha pSain Anion gap [Moles/Vol] 9.5 mmol/L Normal [facility] Comment on above: Performed By: #### C MP #### [facility] [address] [place] [address] Dr. Martha Spain AST [Catalytic activity/Vol] 30 U/L Normal 15-37 [facility] Comment on above: Performed By: #### C MP #### [facility] [address] [place] [address] Dr. Martha Spain Bilirubin [Mass/Vol] 0.7 mg/dL Normal 0.2-1.0 [facility] Comment on above: Performed By: #### C MP #### [facility] [address] [place] [address] Dr. Martha Spain Calcium [Mass/Vol] 9.2 mg/dL Normal 8.5-10.1 The [facility] Comment on above: Performed By: #### C MP #### [facility] [address] [place] [address] Dr. Martha Spain Chloride [Moles/Vol] 101 mmol/L Normal 98-107 [facility] Comment on above: Performed By: #### C MP #### [facility] [address] [place] [address] Dr. Martha Spain CO2 [Moles/Vol] 31.1 mmol/L Normal 21.0-32.0 [facility] Comment on above: Performed By: #### C MP #### [facility] [address] [place] [address] [address] Martha Spain Creatinine [Mass/Vol] 0.84 mg/dL Normal 0.55-1.02 [facility] Comment on above: Performed By: #### C MP #### [facility] [address] [place] [address] [address] Martha Spain EGFR-AF PUERTO RICAN >60 Normal >=60 [facility] Comment on above: Performed By: #### C MP #### [facility] [address] [place] [address] [address] Martha Spain EGFR-NON AF PUERTO RICAN >60 Normal >=60 [facility] Comment on above: Performed By: #### C MP #### [facility] [address] [place] [address] [address] Martha Spain Globulin (S) [Mass/Vol] 3.8 g/dL Normal [facility] Comment on above: Performed By: #### C MP #### [facility] [address] [place] [address] [address] Martha Spain Glucose [Mass/Vol] 110 mg/dL Critically high 74-106 [facility] Comment on above: Performed By: #### C MP #### [facility] [address] [place] [address] Dr. Martha Spain Potassium [Moles/Vol] 4.6 mmol/L Normal 3.5-5.1 [facility] Comment on above: Performed By: #### C MP #### [facility] [address] [place] [address] [address] Martha Spain Protein [Mass/Vol] 7.8 g/dL Normal 6.4-8.2 The [facility] Comment on above: Performed By: #### C MP #### [facility] [address] [place] [address] Dr. Martha Spain Sodium [Moles/Vol] 137 mmol/L Normal 136-145 The [facility] Comment on above: Performed By: #### C MP #### [facility] [address] [place], [place] [address] Dr. Martha Spain Urea nitrogen [Mass/Vol] 14.0 mg/dL Normal 7.0-18.0 [facility] Comment on above: Performed By: #### C MP #### [facility] [address] [place], [place] [address] Dr. Martha Spain Urea nitrogen/Creatinin e [Mass ratio] 16.7 mg/mg Normal [facility] Comment on above: Performed By: #### C MP #### [facility] [address] [place], [place] [address] Dr. Martha Spain COVID Quick Testingon 2021 Result Negative [facility] Other MRI KNEE LT WO CONon MRI [...] by: LYNNETTE LEGGETT Date: 2021-10-15 10:38 Normal [facility] MM screening mammo BI w/CADo n 07-31-2020 MM screening mammo BI w/CAD [facility] [place] [address] [place], [place] [id number] Mammography Report Signed Patient: Reva Richter MR#: [id number] : 1955 Acct:[id number] Age/Sex: 65 / F ADM Date: 07/31/20 Loc: [place] Room: Type: [facility] Attending Dr: Re Buchanan MD [...] Varghese Copeland M.D.07/31/2020 12:01 PM Dictation Location: [facility] Transcribed By: [facility] 07/31/20 1201 Dictated By: Varghese Copeland DO 07/31/20 1157 Signed By: 07/31/20 [facility] Vital Signs Date Time Vital Sign Value Performing Clinician Facility 08-24-2023 15:34-0400 Diastolic blood pressure 101 mm[Hg] Damaso GARCIAL [facility] [place] 08-24-2023 15:34-0400 Heart rate 65 /min Damaso NILL [facility] [place] 08-24-2023 15:34-0400 Mean blood pressure 128 mm[Hg] Damaso NILL [facility] [place] 08-24-2023 15:34-0400 Systolic blood pressure 181 mm[Hg] Damaso NILL [facility] 08-24-2023 15:09-0400 Blood Pressure Location Damaso NILL [facility] 08-24-2023 15:09-0400 Diastolic blood pressure 107 mm[Hg] Damaso NILL [facility] 08-24-2023 15:09-0400 Heart rate 61 /min Damaso NILL [facility] 08-24-2023 15:09-0400 Respiratory rate 16 /min Damaso NILL [facility] 08-24-2023 15:09-0400 Systolic blood pressure 197 mm[Hg] Damaso NILL [facility] 11-22-2021 10:35-0400 Body height 165.1 cm Marilee Choe Other [facility] [employer] Other 11-22-2021 10:35-0400 Body mass index (BMI) [Ratio] 25.79 kg/m2 Marilee Choe Other [facility] Other 11-22-2021 10:35-0400 Body temperature 96 [degF] Marilee Choe Other [facility] Other 11-22-2021 10:35-0400 Body weight 70.31 kg Marilee Choe Other [facility] Other 11-22-2021 10:35-0400 Respiratory rate 18 /min Marilee Choe Other [facility] Other 11-22-2021 10:35-0400 SaO2% (BldA) [Mass fraction] 97 % Marilee Choe Other [facility] Other Encounters Encounter Date Encounter Type Care Provider Facility Start: 12-15-2023 End: 12-15-2023 ambulatory Damaso R NILL Facility: [facility] Start: 12-15-2023 End: 12-15-2023 Patient encounter [facility] Start: 12-08-2023 End: 12-08-2023 ambulatory Damaso R NILL Facility:[facility] Start: 12-08-2023 End: 12-08-2023 Lab Drop off Damaso R NILL [facility] Start: 12-08-2023 End: 12-08-2023 ambulatory Damaso R NILL Facility: [facility] Start: 12-08-2023 End: 12-08-2023 Patient encounter procedure Damaso R NILL [facility] Start: 09-08-2023 ambulatory Damaso R NILL Facility : [facility] Start: 08-24-2023 End: 08-24-2023 ambulatory Damaso R NILL Facility: [place] Start: 08-24-2023 End: 08-24-2023 Patient encounter procedure Damaso R NILL [facility] [place] Start: 08-20-2023 ambulatory Damaso NILL Facility:[facility] Start: 02-10-2022 End: 02-11-[address] RE BUCHANAN Facility:[facility] Start: 11-22-2021 End: 11-22-2021 ambulatory Marilee Choe Other [facility] Other Start: 11-22-2021 Office outpatient ne w 20 minutes Marilee Choe [facility] Start: 10-15-2021 End: 10-16-[address] RE BUCHANAN Facility:[facility] Start: 10-10-2021 End: 10-11-[address] RE BUCHANAN Facility:[facility] Start: 07-31-2020 End: 07-31-2020 Patient encounter procedure Re Buchanan [facility] Breast Care Procedures Date Procedure Procedure Detail Performing Clinician Start: 09-26-2020 Colonoscopy Damaso DE LA FUENTE Start: 07-31-2020 Screening mammograph y of bilateral breasts Re Buchanan Immunizations Immunization Date Immunization Notes Care Provider [facility] 04-10-2021 SARS-CoV-2 (COVID-19 ) mRNA-1273 vaccine Damaso ARIAS [facility] 08-03-2020 SARS-CoV-2 (COVID-19 ) mRNA-1273 vaccine Damaso ARIAS [facility] 07-03-2020 SARS-CoV-2 (COVID-19 ) mRNA-1273 vaccine Damaso ARIAS [facility] 06-19-2016 hepatitis B vaccine, adult dosage Marilee Choe Other [facility] Other 06-11-2016 hepatitis A vaccine, pediatric/adolescent dosage, 2 dose schedule Marilee Choe Other [facility] Other Payers Date Payer Category Payer Medicare [id number] 2.1 [id number] 1959 Medicare [id number] 2.16. [id number] 1955 Unknown [id number] 2.16.84 [id number] 1955 Unknown [id number] 2.16.84 [id number] 1955 Unknown [id number] 2.16.84 [id number] 1955 Unknown [id number] 2.16.8 [id number] 1955 Unknown [id number] 2.16.8 [id number] 1955 Unknown [id number] 2.16.8 [id number] 1955 Unknown [id number] 2.16.8 [id number] 1955 Unknown [id number] 2.16.8 [id number] Self-pay Self Pay [id number] Unknown Self Pay [id number] Social History Date Type Detail [facility] [place] [facility] Start: 1955 Sex Assigned At Female F [facility] Sex Assigned At [facility] Start: 08-24-2023 Tobacco smoking status Never s moked tobacco (finding) [facility] Tobacco smoking status Never [facility] Goals Date Patient Goal Desired Activity /State Functional Status Date Assessment Result Facility 12-08-2023 Functional Status N/A [facility] 08-24-2023 Functional Status N/A [facility] Clinical Note 08-24-2023 Note Date & Type Note Facility 08-24-2023 Note Chief Complaint consultation for nevus HPI Staff 68 year old female presents on consultation from Dr. Buchanan for face nevus. Patient reports small lesion to right nostril, one to left cheek and one to left worship area. History of Present Illness 68 yo [...] Recorded SARS-CoV-2 (COVID-19) mRNA-1273 vaccine 07/03/2020 Recorded [facility] Comment on above: Result Comment: Elec [...] s/s of dehydration or severe abdominal pain. [facility] Other Clinical Note 10-10-2021 Note Date & [...] authenticated by: LEATHA HURLEY Date: 2021-10-10 11:39 [facility] Evaluation + Plan note Note Date & Type Note Facility Evaluation + Plan note Future Appointments Appointment Date:09/08/2023 03:00:00 PM Scheduled Provider:Damaso ARIAS MD Location:[facility] Appointment Type: Procedure 30 [facility] [place] Evaluation + Plan note Note Date & Type Note Facility Evaluation + Plan note Future Appointments Appointment Date:12/15/2023 02:00:00 PM Scheduled Provider:Damaso ARIAS MD Location:[facility] Appointment Type: Established 15 [facility] History general Narrative - Reported Note Date & Type Note Facility History general Narrative - Reported Type Medical History Hepatitis C from [facility] [place] blood transfusion Medical History Hypertension Surgical History cyst right hand-calcium deposit 1985 Hospitalization History see above [facility] Other Hospital course Narrative Note Date & Type Note Facility Hospital course Narrative No data available for this section [facility] [place] [facility] Discharge instructions Note Date & Type Note Facility Hospital Discharge instructions No data available for this section [facility] [place] Progress note Note Date & Type Note Facility Progress note No data available for this section [facility] [place] Advance Directives No Advanced Directives Records Found [...] section and content) DATE CREATED AUTHOR 08/11/2020 [facility] DATE CREATED AUTHOR AUTHOR'S ORGANIZ ATION 02/16/2022 [facility] DATE CREATED AUTHOR AUTHOR'S ORGANIZ ATION 12/13/2023 [facility] DATE CREATED AUTHOR AUTHOR'S ORGANIZ ATION 12/16/2023 [facility] DATE CREATED AUTHOR AUTHOR'S ORGANIZ ATION 12/17/2023 [facility] REASON FOR VISIT (unrecogniz ed section and content) NANDO VAZQUEZ, H/Harris, MICKY EXPSO URE Patient Care team informatio n (unrecognized section and content) Personnel Name: Re Buchanan MD Address: Address: [address] [place] [address] Personnel Name: Re Buchanan MD Address: Address: [address] [place] [address] Personnel Name: Re Buchanan MD Address: Address: [address] [place] [address] Personnel Name: Re Buchanan MD Address: Address: [address] [place] [address], [place] [address] FOR [facility] PERTAINING TO PATIENTS WHO [...] BE BASED ON THE PRIMARY CLINICAL RECORDS. [facility]. provides no warranty or guarantee of the accuracy or completeness of information in this document.
== END 2024-11-14 06:47 | disposition home or self-care (01) ==
LOC: MRI 06:46
PROVIDERS: PCP Family Medicine; Visit Provider Family Medicine
DX: M23.91 Unspecified internal derangement of right knee (principal); S83.241A Other tear of medial meniscus, current injury, right knee, initial encounter; M67.461 Ganglion, right knee; M22.41 Chondromalacia patellae, right knee
CPT/HCPCS: 73721

== ENCOUNTER 2025-01-17 08:57 | Outpatient (OUT) | payer MEDICARE, OTHER, SELFPAY ==
--- OUTSIDE RECORDS SUMMARY | 2024-10-25 10:00 | XMS_ITS ---
Author Organization The [facility] in [place] Address [address] [place] [address] Care Team Providers Care Foil Spinner Name Role Phone Dewayne Haile Primary Care Provider [phone] REASON FOR VISIT bp check Vital Signs Height 65 in 10/25/2024 Blood pressure systolic 146 mm Hg 10/26/19 25 Blood pressure diastolic 84 mm Hg 025 Encounters Encounter Location Date Provider Diagnosis [facility] [address] [place] [address] 10/25/2024 Haile Buchanan Essential Hypertensi on I10 Assessments Encounter Date Diagnosis (ICD Code) Assessment Notes Treatment Notes Treatment Clinical Notes Section Notes 10/25/2024 Essential Hypertension (ICD-10 - I10) Plan Of Treatment No Information Progress Notes * Reva RICHTERDOB: [birth year] (69 yo F)Acc No.[id number]:10/25/2024 UNLOCKED PROGRESS NOTE BP Check Patient: Mehreen Reva OBRIEN [facility] :1955 A ge:69 Y S ex:Female Date:10/25/2024 Address:[address] [place] [phone] Check In:02:08 PM EST Subjective: * Chief Complaints: * 1 . Bp check. * Medical History: Objective: * Vitals: H t: 65 in, BP:146/84mm Hg, Ht-cm: 165.1 cm. Assessment: * Assessment: 1. E ssential Hypertension - I10 (Primary) Plan: * Treatment: * * Electronic signature of Haile Buchanan MD, [id number] on 01/17/2025 at 08:59 AM EDT Sign off status: Pending Visit Status: O FF CANC (OFFICE CANCEL) * Provider: Denny Buchanan ([facility])MD Date: 0 10/25/2024 Generated for Johnna cedeño/Melinda/eTransmitting on: 0 01/17/2025 08:59 AM EDT
--- OUTSIDE RECORDS SUMMARY | 2024-11-30 13:16 | XMS_ITS ---
Author Name Auto Generated Organization OH[facility] Care Team Providers Care Welfare Worker Name Role Phone MARICHUY COUGHLIN Attending Unavailable RE CURTIS Referring Unavailable MARÍA ELENA RODRÍGUEZ Attending Unavailable PROBLEMS DATE TYPE CONDITION / CODE ATTENDING STATUS [facility] 11/30/2024 Admitting Diagnosis Other tear of medial meniscus, current injury, right knee, initial encounter / S83.241A(ICD-10) MARICHUY COUGHLIN Active [facility] 11/24/2024 Admitting Diagnosis Other forms of dyspnea / R06.09(ICD-10) MARÍA ELENA RODRÍGUEZ Active [facility] 11/24/2024 Admitting Diagnosis Palpitations / R00.2(ICD-10) MARÍA ELENA RODRÍGUEZ Active [facility] PROCEDURES No Procedure Records Found RESULTS ORDERS ONLY Observed: 01/02/2025 12:00 AM Status: COMPLETED Source: [facility] [id number] Reva Richter 0 1955 F Date Provider Department [place] 01/02/2025 [id number], [facility] Family History Family Status - Relation Status Age at Mother Father PROGRESS Observed: 11/30/2024 1:20 PM Status: COMPLETED Source: [facility] Subjective: Patient ID: Reva Richter is a 69 y.o. female. 1955 Chief Complaint: right knee pain for 1 month. HPI: Reva Richter is a 69 y.o. female who complains of right knee pain over the medial and anterior aspect of the patella. She reports the pain began 1 month after she was chasing a dog and felt her knee pop. Since then the pain has been intermittent in nature. The pain is worse with activity and has associated weakness in the joint. She denies numbness, tingling, and radiation of pain. She pointes to the anteromedial aspect of the knee as the source of her pain. Social History Occupational History Not on file Tobacco Use Smoking status: Never Smokeless tobacco: Never Substance and Sexual Activity Alcohol use: Yes Alcohol/week: 2.0 standard drinks of alcohol Types: 2 Glasses of wine per week Comment: occasioanal Drug use: Not Currently Types: Marijuana Sexual activity: Not Currently control/protection: Post-menopausal Medical History[1] There were no vitals filed for this visit. Review of systems: Constitutional: No fever or night sweats Musculoskeletal: right knee pain Neurological: Negative for tingling or numbness Physical Exam: General: No acute distress Constitutional: Grossly well-appearing Mental status: Alert and oriented Respiratory: Non-labored breathing Skin: No erythema, ecchymosis, or abrasions right knee exam: Inspection- Effusion: none Palpation- Patellar tendon: tender Quad tendon: not tender Medial joint line: tender anterior, non tender posterior Lateral joint line: not tender Patella: Stable, No crepitus ROM: 0-140 degrees Meniscal exam- Negro: negative medial Stability- ACL: Tereso negative Collateral Ligaments: Stable to varus and valgus stress at 0 and 30 degrees. Pain with valgus stress. No pain noted with varus stress. PCL: Posterior drawer negative Strength Quadriceps: 5/5 Hamstrings: 5/5 Vascular: Brisk capillary refill Neuro: Sensation intact to light touch distally Imaging: Where: [facility] Date: 11/14/2024 MRI right knee(s) : chondromalacia medial compartment with associated complex tear posterior horn medial meniscus, extrusion of the body into MCL. Cystic structure anterolateral knee. Read and interpreted by Dr. Coughlin Diagnosis Plan 1. Tear of medial meniscus of right knee, current, unspecified tear type, initial encounter Reva Richter is a 69 y.o. female with a right medial meniscus tear, chondromalacia medial compartment. Plan: Discussed clinical and imaging findings with the patient and her Discussed treatment options. Given her age and history of pain prior to this incident, recommend trial of conservative treatment. Corticosteroid injection into the right knee today Follow up in 6 weeks to reevaluate. Patient will call and cancel if pain resolved. Large Joint: R knee on 11/30/2024 2:03 PM Indications: pain Details: 21 G needle, anterolateral approach Medications: 200 mg lidocaine HCl 10 mg/mL (1 %); 2 mL triamcinolone acetonide (Kenalog-10) 10 mg/mL Outcome: tolerated well, no immediate complications Procedure, treatment alternatives, risks and benefits explained, specific risks discussed. Consent was given by the patient. Patient was prepped and draped in the usual sterile fashion. Jasen Milan, MS4 11/30/24 1:45 PM As the teaching physician, I have personally performed or re-performed the history of present illness, physical exam and medical decision-making activities of the encounter and verified the medical student's documentation. I made pertinent changes as necessary to ensure accurate documentation. There may be additional comments below. Marichuy Coughlin MD [1] Past Medical History: Diagnosis Date CTS (carpal tunnel syndrome) 1984 Diverticulosis Gastritis History of hepatitis C Hypertension Nervus Over weight Pruritus Tear of meniscus of knee [id number] OFFICE VISIT Observed: 11/30/2024 1:20 PM Status: COMPLETED Source: [facility] [id number] Reva Richter 1955 Date Provider Department Center 11/30/2024 361-MARICHUY COUGHLIN ORTHO [facility]THO Family History Family Status - Relation Status Age at Mother Father Level of Service:21207 [place] OFFICE/OUTPATIENT NEW MODERATE MDM 45 MINUTES (25,GC) Reason for Visit and Comments: Pain [136] OFFICE VISIT Observed: 11/24/2024 3:20 PM Status: COMPLETED Source: [facility] [id number] Reva Richter 0 1955 Date Provider Department Center 11/24/2024 [id number] ELENA RODRÍGUEZ [facility] Family History Family Status - Relation Status Age at Mother Father Level of Service:08308 [place] OFFICE/OUTPATIENT NEW MODERATE MDM 45 MINUTES Reason for Visit and Comments: New Patient [632] Chest Pain [101254] Esophageal spasm [Other] PROGRESS Observed: 11/24/2024 3:20 PM Status: COMPLETED Source: [facility] Office Cardiology Clinic Note Reason for cardiology consult: Episodes of throat discomfort associated with feeling hot sweaty and nauseated Chief Complaint: Throat discomfort associated with feeling hot sweaty and nauseated, dyspnea on exertion, palpitations HPI: Reva Richter is a 69 y.o. female without prior cardiac history. She has history of hypertension. No history of hyperlipidemia or diabetes mellitus. Never been a smoker On 10/25/2024 while she was sitting folding napkins when she felt throat discomfort she describes it as choking and she felt hot and sweaty and then nauseated without any palpitations or actual chest pain, it lasted about 10 minutes then it went away. She reported that she did not eat breakfast yet. Later that day she went to the PCP to check her blood pressure which was okay however she was sent to the emergency room. High-sensitivity troponin was negative, EKG was normal. She underwent exercise stress test on 11/02/2024 and she was able to walk on treadmill according to standard Cirilo protocol for 4.42 minutes without any chest pain or EKG changes and infrequent PVCs were noted. She reports that she had similar symptoms 6 months ago when she was in the christianity lasted only for 5 minutes but no associated dizziness or syncope or near syncope. She reports occasional lightheadedness when standing. She denies any chest pain at rest or with exertion. She reports occasional shortness of breath when overexerts herself associated with increased heart rate. She reports occasional palpitations at rest without any other symptoms. She denies legs edema. She complains of right knee pain. She does not drink caffeine. She denies smoking, alcohol or illicit drugs Regarding family history: Her mother had permanent pacemaker and hypertension but she at age 86 Cardiology ROS: GENERAL: Denies fever, chills, night sweats, weight loss. HEENT: Denies changes in vision, photophobia, changes in hearing, epistaxis, oral bleeding. CARDIOVASCULAR: Described above in the history. RESPIRATORY: Denies SOB, coughing, wheezing GI: Denies abdominal pain, nausea/vomiting, heartburn, melena/hematochezia. RENAL: Denies dysuria, hematuria, flank pain. MSK: Denies muscle weakness/pain, arthralgias/joint pain. NEUROLOGIC: Denies LOC, weakness, numbness, headaches. SKIN: Denies abnormal rashes or bleeding. PSYCH: Denies significant anxiety, depression, sleep disturbances. Past Medical History She has a past medical history of Diverticulosis, Gastritis, History of hepatitis C, Hypertension, Nervus, Over weight, and Pruritus. Surgical History She has no past surgical history on file. Social History She reports that she has never smoked. She has never used smokeless tobacco. She reports current alcohol use. She reports that she does not use drugs. Family History Family History[1] Allergies Metoprolol Medications Current Medications[2] Last Recorded Vitals Visit Vitals BP 139/83 (BP Location: Left arm, Patient Position: Sitting) Pulse 72 Wt 72.1 kg (159 lb) SpO2 97% Smoking Status Never Physical Examination: GENERAL: alert and oriented x3, well developed, in no acute distress. HEAD: atraumatic, normocephalic. EYES: JAZMÍN, EOMI. NECK: trachea midline, no JVD present, no carotid bruits present. CARDIAC: S1, S2 present. RRR. No murmur, rubs, or gallops. RESPIRATORY: CTAB, no increased effort of breathing, no rales, rhonchi, or wheezing. ABDOMEN: soft, nontender, nondistended. EXTREMITIES: no lower extremity edema, peripheral pulses are 2+ bilaterally. No rash/skin discoloration present. NEURO: strength/sensation equal and symmetric in bilateral upper and lower extremities. PSYCH: appropriate mood, affect, and judgement. Labs: 10/25/2024 White blood count 6.6, hemoglobin 12.9, hematocrit 39.1, platelets 170 Sodium 141, potassium 3.6, BUN 23, creatinine 1.3, GFR 41, glucose 121, calcium 9.1 Total bilirubin 0.4, AST 16, ALT 16, alk phos 99, total protein 7.5, albumin 3.8 09/06/2024 HbA1c 5.9% Triglycerides 68, cholesterol 174, LDL 82, HDL 79 TSH 1.798, free T48.5, free T33.4 Last Images: EKG 10/25/2024 showed normal sinus rhythm, normal EKG Treadmill exercise stress test 11/02/2024 Assessment and Plan: Episodes of neck discomfort/choking associated with feeling hot and sweaty and nauseated. She had a normal stress test on 11/02/2024 with average exercise tolerance without any associated symptoms. I wonder if her symptoms represent orthostatic hypotension. Dyspnea on exertion Palpitations Essential hypertension, on amlodipine 10 mg daily, appears well-controlled Plan: Continue amlodipine Patient was advised to avoid caffeine and alcohol and increase her water intake to at least 1500 to 2000 cc/day to avoid orthostatic hypotension particularly that she is on vasodilator Echo to evaluate underlying cardiac function and presence of structural heart disease particularly that the patient reports exertional dyspnea 2 weeks event monitor to evaluate for arrhythmia at the time of palpitations and also in association with other symptoms She was advised to check her blood pressure if she has recurrence of the above episodes Follow-up in about 5 to 6 weeks María Elena Rodríguez MD,FACC [1] No family history on file. [2] Current Outpatient Medications: amLODIPine (Norvasc) 10 mg tablet, Take 1 tablet by mouth in the morning., Disp: , Rfl: ALLERGIES DATE TYPE / CODE NAME / CODE REACTION SEVERITY SOURCE 11/23/2024 DRUG INGREDI/[id number] 03(SNOMED CT) METOPROLOL (Inactive) Nausea Only [facility] ENCOUNTERS ADMIT/DISCHARGE ACCOUNT NUMBER ADMITTING ENCOUNTER CLASS LOCATION SOURCE 11/30/2024 [id number] Ambulatory Buildin 0 [facility] 11/24/2024/ 5 [id number] Ambulatory Building:[facility] PAYERS ENCOUNTER GUARANTOR PAYER SUBSCRIBER SOURCE 11/30/2024 Primary Insurance:MEDICAREPol icy Number: [id number] Date:[id number] Name:Medicare BONNIE J GRERACHB: [id number] [place] [id number] [facility] 11/30/2024 Secondary Insurance:HUMANAPolic y Number: [id number] Date:2020-04-20 REVA J JOIEB: [id number] [place] [id number] [facility] 11/24/2024 Primary Insurance:MEDICAREPol icy Number: [id number] Date:[id number] Name:Medicare BONNIE J JOIEB: [id number] [place] [id number] [facility] 11/24/2024 Secondary Insurance:HUMANAPolic y Number: [id number] Date:2020-04-20 REVA ANTUNEZ: [id number] [address]
--- OUTSIDE RECORDS SUMMARY | 2025-01-10 05:45 | XMS_ITS ---
Author Organization [facility] in [place] Address [address] [place] [address] Care Team Providers Care Underground Repairer Name Role Phone Haile Buchanan Primary Care Provider Allergies Allergen (clinical drug ingredient) Drug/Non Drug Allergy documented on EMR Reaction Allergy Type Onset Date Status tramadol traMADol HCl lightheaded Drug Allergy Ac tive lisinopril Lisinopril cough Drug Allergy Activ e REASON FOR VISIT heel spur- right foot- heel pain started about 1 month ago- iced and tylenol Medications Medication SIG (Take, Route, Fr equency, Duration) Notes Start Date End Date Status Meloxicam 15 MG 1 tablet Orally Once a day; Duration: 30 days 01/10/2025 Active Norvasc 10 MG 1 tablet Orally Once a day; Duration: 30 days 09/23/2024 Active Social History Tobacco Use: Social History Observation Description Date Details (start date - stop date) Never Smoker NA - NA Tobacco Use/Smoking Question Answer Notes Patient is a nonsmoker Problems Problem Type SNOMED Code ICD Code Onset Dates Problem Status W/U Status Risk Notes Problem Plantar fasciitis (224371661) Plantar fasciitis (M72.2) Active confirmed Vital Signs Weight 163.0 lbs 01/10/2025 Height 65 in 01/10/2025 Blood pressure systolic 140 mm Hg 01/11/20 25 Blood pressure diastolic 82 mm Hg 025 BMI 27.12 kg/m2 01/10/2025 Encounters Encounter Location Date Provider Diagnosis [facility] [address] [place] [address] 01/10/2025 Haile Buchanan Plantar fasciitis M72.2 Assessments Encounter Date Diagnosis (ICD Code) Assessment Notes Treatment Notes Treatment Clinical Notes Section Notes 01/10/2025 Plantar fasciitis (ICD-10 - M72.2) Plan Of Treatment Medication Medication Name Sig Start Date Stop Date Notes Meloxicam 15 MG 1 tablet Orally Once a day; Duration: 30 days 01/10/2025 Progress Notes * Reva RICHTER AlisonDOB: [birth year] (69 yo F)Acc No.[id number]:01/10/2025 Progress Note Patient: Reva ELENA Provider: Denny Buchanan ([facility]), :1955 A ge:69 Y S ex:Female Date:01/10/2025 Address:[address] [place], [place] [id number] Check In:09:37 AM ESTCheck O ut:10:18 AM EST Subjective: * Chief Complaints: * H eel spur- right foot- heel pain started about 1 month ago- iced and tylenol * HPI: G eneral: R heel pain - no injury - Worse in am or if sitting - better with walking. * Active Problem List K57.90 Diverticulosis Modified On:03/19/2023/U Status:confirmed K29.70 Gastritis Modified On:03/19/2023U Status:confirmed E66.3 Over weight Modified On:03/19/2023U Status:confirmed D22.9 Nevus Modified On:03/19/2023U Status:confirmed L29.9 Pruritus Modified On:03/19/2023U Status:confirmed Z86.19 History of hepatitis Modified On:03/19/2023/U Status:confirmed L30.9 Eczema Modified On:04/23/2023/U Status:confirmed B19.20 Hepatitis C Modified On:03/19/2023/U Status:confirmed I10 Essential Hypertensi on Modified On:04/23/2023/U Status:confirmed M23.90 Internal derangement of knee Modified On:11/07/2024W/U Status:confirmed R06.00 Dyspnea on exertion Modified On:11/30/2024W/U Status:confirmed R00.2 Palpitation Modified On:11/30/2024W/U Status:confirmed M72.2 Plantar fasciitis Modified On:01/10/2025W/U Status:confirmed * Medical History: * Surgical History: r ight hand surgery * Hospitalization/Major Diagno stic Procedure: D enies Past Hospitalization * Family History: F ather: , glaucoma. M other: , diagnosed with Unspecified heart disease.?Sister(s): , breast cancer. * Social History: T obacco Use: T obacco Use/Smoking P atient is a n onsmoker * Medications: T akingNorvasc(amLODIPine Besylate) 10 MG Tablet 1 tablet Orally Once a day Medication List reviewed and reconciled with the patientTaking Norvasc(amLODIPine Besylate) 10 MG Tablet 1 tablet Orally Once a day Medication List reviewed and reconciled with the patient * Allergies: L isinopril: coughtraMADol HCl: lightheadedno[Allergies Verified] Objective: * Vitals: W t:163.0lbs, Ht: 65 in, BP:140/82mm Hg, BMI:27.12Index. Assessment: * Assessment: 1. P lantar fasciitis - M72.2 (Primary) Plan: * Treatment: * Procedure Codes: * Preventive Medicine: Screenings/Counseling: B PR ACTION PLAN Above Normal BMI Follow-up D ietary management education, guidance, and counseling * * Sign off status: Completed Visit Status: C HK (Check Out) true * Provider: Denny Buchanan ([facility])MD Date: 0 01/10/2025 Generated for Johnna cedeño/Melinda/Yueitting on: 01/17/2025 08:58 AM EDT History and Physical Notes * HPI (History of Present Illness) Category Sub-Category Detail Notes Category Not es General R heel pain - no injury - Worse in am or if sitting - better with walking
--- OUTSIDE RECORDS SUMMARY | 2025-01-17 08:58 | XMS_ITS | Clinical Summary ---
Author Organization [facility] Address [address] [place] [address] Care Team Providers Care Diffuser Operator Name Role Phone Unavailable Primary Care Provider [...]
--- OUTSIDE RECORDS SUMMARY | 2025-01-17 08:58 | XMS_ITS | Encounter Summary ---
Author Organization [facility] Address [address] [place] [address] Care Team Providers Care Sap Solutions Architect Name Role Phone Akash Buchanan MD Primary Care Provider [phone] Encounter Details Date Type Department Care Team (Late st Contact Info) Description 01/02/2025 Orders Only [facility] [address] [place] [address] ProviderLorraine MD [address] [place], [place] [id number] Social History Tobacco Use Types Packs/Day Years Used Date Smoking Tobacco: Never Smokeless Tobacco: Never Alcohol Use Standard Drinks/Week Comments Yes 2 (1 standard drink = 0.6 oz pur e alcohol) occasioanal B1300 Health Literacy Answer Date Recor ded How often do you need to hav e someone help you when you read instructions, pamphlets, or other written material from your doctor or pharmacy? Never 11/30/2024 [facility] Utilities Answer Date Recorded In the past 12 months has [facility] [employer], [employer], oil, or water [facility] threatened to shut off services in your home? No 11/30/2024 Humiliation, Afraid, Rape, and Kick questionnair e Answer Date Recorded Within the last year, have y ou been afraid of your partner or ex-partner? No 11/30/2024 Within the last year, have y ou been humiliated or emotionally abused in other ways by your partner or ex-partner? No Within the last year, have y ou been kicked, hit, slapped, or otherwise physically hurt by your partner or ex-partner? No 11/30/2024 Within the last year, have y ou been raped or forced to have any kind of sexual activity by your partner or ex-partner? No 11/30/2024 Social Connection and Isolat ion Panel [NHANES] Answer Date Recorded In a typical week, how many times do you talk on the phone with family, friends, or neighbors? More than three times a week 11/30/2024 How often do you get togethe r with friends or relatives? More than three times a week 11/30/2024 How often do you attend chur or catholic services? More than 4 times per year 11/30/2024 Do you belong to any clubs o r organizations such as hoahaoism groups, unions, fraternal or athletic groups, or school groups? Yes 11/30/2024 How often do you attend meet ings of the clubs or organizations you belong to? 1 to 4 times per year 11/30/2024 Are you , , di vorced, , never , or living with a partner? 11/30/2024 AUDIT-C Answer Date Recorded Q1: How often do you have a drink containing alcohol? Never 11/30/2024 Q2: How many drinks containi ng alcohol do you have on a typical day when you are drinking? Patient does not drink Q3: How often do you have si x or more drinks on one occasion? Never 11/30/2024 Overall Financial Resource Strain (CARDIA) Answe r Date Recorded How hard is it for you to pa y for the very basics like food, housing, medical care, and heating? Not very hard 11/30/2024 [facility] - Occupational Stress Questionnaire Answer Date Recorded Do you feel stress - tense, restless, nervous, or anxious, or unable to sleep at night because your mind is troubled all the time - these days? Rather much 11/30/2024 Exercise Vital Sign Answer Date Recorde d On average, how many days pe r week do you engage in moderate to strenuous exercise (like a brisk walk)? 3 days 11/30/2024 On average, how many minutes do you engage in exercise at this level? 60 min 11/30/2024 Transportation Answer Date Recorded In the past 12 months, has l ack of transportation kept you from medical appointments or from getting medications? No 11/18 In the past 12 months, has l ack of transportation kept you from meetings, work, or from getting things needed for daily living? No 11/30/2024 Housing Stability Vital Sign Answer Rodrigo e Recorded In the last 12 months, was t here a time when you were not able to pay the mortgage or rent on time? No 11/30/2024 Number of Times Moved in the Last Year Not on fi le 11/30/2024 At any time in the past 12 m [facility], were you homeless or living in a group home (including now)? No 11/30/2024 Hunger Vital Sign Answer Date Recorded Within the past 12 months, y ou worried that your food would run out before you got the money to buy more. Never true 12/01/19 25 Within the past 12 months, t he food you bought just didn't last and you didn't have money to get more. Never true 11/30/2024 Comments Unknown Sex and Gender Information Value Date Recorded Sex Assigned at Female 11/22/2024 3:47 PM EDT Legal Sex Female 10:01 AM EDT Gender Identity Female 11/22/2024 3:47 PM EDT Sexual Orientation Choose not to disclose 2024 10:10 AM EDT documented as of this encounter Plan of Treatment Upcoming Encounters Date Type Department Care Team (Late st Contact Info) Description 02/15/2025 3:00 PM EDT Office Visit [facility] [address] [place] [address] Jocelin Rodríguez MD [id number] [place] [address] documented as of this encounter Procedures Procedure Name Priority Date/Time Associated Diagnosis Comments HOLTER MONITOR SPLITTER HEAD Routine 12/08/2024 10:52 AM EDT documented in this encounter Results * Holter monitor - long term care social worker (12/08/2024 10:52 AM EDT) Anatomical Region Laterality Modality Other Historical Provider CV CARDIAC SERVICES PROCE DURES Final Result documented in this encounter Visit Diagnoses Not on filedocumented in this encounter Care Teams Sap Solutions Architect Relationship Specialty Start Date End Date Akash Buchanan MD [address] [place] [address] PCP - General Family Medicine 11/15/24 documented as of this encounter
--- OUTSIDE RECORDS SUMMARY | 2025-01-17 08:58 | XMS_ITS | Clinical Summary ---
Author Organization [facility] Address [address] [place] [address] Care Team Providers Care Sales Service Technician Name Role Phone Akash Buchanan MD Primary Care Provider [phone] Allergies Active Allergy Reactions Criticality Noted Date Comments Lisinopril Cough 01/05/2025 Metoprolol Nausea Only 11/23/2024 Tramadol Hcl Unknown 01/05/2025 Medications amLODIPine (Norvasc) 10 mg tablet Take 1 tablet by mouth in the morning. 11/10/2024 Active Active Problems Problem Noted Date Diagnosed Date Gastritis 01/05/2025 History of infectious disease 01/05/2025 Internal derangement of knee 01/05/2025 Throat discomfort 11/28/2024 DIAMOND (dyspnea on exertion) 11/28/2024 Palpitations 11/28/2024 BMI 27.0-27.9,adult 11/23/2024 Diverticular disease of colon 11/23/2024 Eczema 11/23/2024 Family history of colon canc er requiring screening colonoscopy 11/23/2024 Hepatitis C, chronic 11/23/2024 Hypertension 11/23/2024 Keratosis, seborrheic 11/23/2024 Nevus 11/23/2024 Overweight 11/23/2024 Granuloma of skin 11/23/2024 Encounters Date Type Department Care Team Description 01/02/2025 Orders Only [facility] [address] [place] [address] ProviderLorraine MD 11/30/2024 1:20 PM EDT Office Visit [facility] [address] [place] [address] [place] [address] Fernando Singh MD Tear of medial meniscus of right knee, current, unspecified tear type, initial encounter (Primary Dx) 11/24/2024 3:20 PM EDT Office Visit [facility] [address] [place] [address] Jocelin Rodríguez MD Throat discomfort (Primary Dx); Palpitations; DIAMOND (dyspnea on exertion); Primary hypertension from Last 3 Months Family History Relation Name Status Comments Father Mother Social History Tobacco Use Types Packs/Day Years Used Date Smoking Tobacco: Never Smokeless Tobacco: Never Tobacco Cessation:Counseling Given: Not Answered Alcohol Use Standard Drinks/Week Comments Yes 2 (1 standard drink = 0.6 oz pur e alcohol) occasioanal B1300 Health Literacy Answer Date Recor ded How often do you need to hav e someone help you when you read instructions, pamphlets, or other written material from your doctor or pharmacy? Never 11/30/2024 [employer] Answer Date Recorded In the past 12 months has e [employer] gas, oil, or water [employer] threatened to shut off services in your [...] How often do you attend chur or taoist services? More than 4 times per year 11/30/2024 Do you belong to any clubs o r organizations such as restorationism groups, unions, fraternal or athletic groups, or [...] care, and heating? Not very hard 11/30/2024 [facility] - Occupational Stress [...] any time in the past 12 m onths, were you homeless or living in a prison (including now)? No 11/30/2024 Hunger Vital Sign [...] not to disclose 2024 10:10 AM EDT Last Filed Vital Signs Vital Sign Reading Time Taken Comments Blood Pressure 139/83 11/24/2024 3:22 PM EDT Pulse 72 11/24/2024 3:22 PM EDT Temperature - - Respiratory Rate - - Oxygen Saturation 97% 11/24/2024 3:22 PM EDT Inhaled Oxygen Concentration - - Weight 72.1 kg (159 lb) 11/24/2024 3:22 PM EDT Height - - Body Mass Index - - Plan of Treatment Upcoming Encounters Date Type Department Care Team (Late st Contact Info) Description 02/15/2025 3:00 PM EDT Office Visit [facility] [address] [place] [address] Jocelin Rodríguez MD [address] [place] [address] MS:[address]18 [place] [address] Health Maintenance Due Date Last Done Comments CT Colonography 1955 FIT-DNA 1955 FIT 1955 FOBT 1955 Medicare Annual Wellness (AWV) 1955 Sigmoidoscopy 1955 Depression Screening 1967 Pneumococcal Vaccine: 50+ Years (1 of 2 - PCV) 1974 Adult Tetanus 1977 Mammogram 1995 Zoster Vaccines (1 of 2) 2005 COVID-19 Vaccine (4 - 2024-2 6 season) 2024 04/10/2021, 08/03/2020, 07/03/2020 Influenza Vaccine (#1) 2024 Fall Risk Screening 11/30/2025 11/30/2024 Colonoscopy 09/26/2030 09/26/2020 Colorectal Cancer Screening 09/26/2030 HIB Vaccines Aged Out No longer eligi [...] on patient's age to complete this topic Procedures Procedure Name Priority Date/Time Associated Diagnosis Comments HOLTER MONITOR BEHAVIORAL SCIENTIST Routine 12/08/2024 10:52 AM EDT DC ARTHROCENTESIS ASPIR&/INJ MAJOR JT/BURSA W/O US Routine 11/30/2024 2:03 PM EDT Tear of medial meniscus of right knee, current, unspecified tear type, initial encounter from Last 3 Months Results * Holter monitor - salvage determiner (12/08/2024 10:52 AM EDT) Anatomical Region Laterality Modality Other Historical Provider MD [facility] Final Result * DC ARTHROCENTESIS ASPIR&/INJ MAJOR JT/BURSA W/O US (11/30/2024 2:03 PM EDT) Narrative Fernando Singh MD - 11/30/2024 2:03 PM EDT Fernando Singh MD 11/30/2024 2:04 PM Large Joint: R knee on 11/30/2024 2:03 [...] and draped in the usual sterile fashion. us Fernando Singh MD IN CLINIC/BEDSIDE ORDERABLES Fin al Result from Last 3 Months Insurance MEDICARE [employer] Care Teams Sales Service Technician Relationship Specialty Start Date End Date Akash Buchanan MD [address] [facility] [address] [address] PCP - General Family Medicine 11/15/24
--- OUTSIDE RECORDS SUMMARY | 2025-01-17 08:59 | XMS_ITS | Patient Health Record ---
Author Organization [facility] [place] Address [address] [place] [address] Care Team Providers Care Assistant Store Manager Trainee Name Role Phone Haile Curtis Primary Care Provider Eileen Espinosa Unavailable [phone] Allergies Allergen (clinical drug ingredient) Drug/Non Drug Allergy documented on EMR Reaction Allergy Type Onset Date Status tramadol traMADol HCl lightheaded Drug Allergy Ac tive lisinopril Lisinopril cough Drug Allergy Activ e Results Component Value Reference Range Notes LIPID PROFILE Reviewed date:09/06/2024 08:15:04 PM Interpretation: Performing Lab: Notes/Report: [facility] , Triglycerides 68 <=150 mg/dL [...] Performing Lab: see note ML - [facility] LB PROF 14(COMP METB) Reviewed date:09/06/2024 08:15:04 PM Interpretation: Performing Lab: Notes/Report: [facility] , Sodium 142 136-145 mmol/L [...] 1.0 Performing Lab: see note ML - [facility] LB T4 Reviewed date:09/06/2024 08:15:04 PM Interpretation: Performing Lab: Notes/Report: [facility] , T4 Thyroxine 8.50 4.80-13.90 ug/dL Performing Lab: see note ML - [facility] LB TSH Reviewed date:09/06/2024 08:15:04 PM Interpretation: Performing Lab: Notes/Report: [facility] , Thyroid Stimulating Hormone 1.798 0.358-3.740 u IU/mL Performing Lab: see note ML - [facility] LB CBC AUTO DIFF Reviewed date:10/25/2024 07:12:58 PM Interpretation: Performing Lab: Notes/Report: [facility] , White Blood Count 6.6 [...] Performing Lab: see note ML - [facility] LB PROF 14(COMP METB) Reviewed date:10/25/2024 07:12:58 PM Interpretation: Performing Lab: Notes/Report: [facility] , Sodium 141 136-145 mmol/L [...] 1.0 Performing Lab: see note ML - [facility] LB Prothrombin Time INR Reviewed date:10/25/2024 07:12:58 PM Interpretation: Performing Lab: Notes/Report: [facility] , Prothrombin Time 10.9 9.0-11.6 sec INR 1.03 DESIRED INR: 2.0-3.0 CONDITIONS NOT LISTED BELOW 2.5-3.5 FOR PROSTHETIC HEART VALVE REPLACEMENT 2.5-3.5 RECURRENT THROMBOSIS Performing Lab: see note - [facility] LB Troponin I High Sensitivity Reviewed date:10/25/2024 07:12:58 PM Interpretation: Performing Lab: Notes/Report: [facility] , Troponin I High Sensitivity 7.2 4.0-51.3 pg/m L CUT-OFF POINTS HAVE BEEN ESTABLISHED BASED ON THE FOURTH UNIVERSAL DEFINITION OF MYOCARDIAL INFARCTION. THE UPPER REFERENCE LIMIT (URL) OF TROPONIN, DEFINED THE 99TH PERCENTILE OF cTnI DISTRIBUTION IN A REFERENCE POPULATION, HAS BEEN CONFIRMED THE DECISION THRESHOLD FOR [place] DIAGNOSIS. 99TH PERCENTILE = 51.4 PG/ML NOTE: HIGH-SENSITIVITY TROPONIN ASSAY IS NOT INTENDED TO BE USED IN ISOLATION BUT SHOULD BE INTERPRETED IN CONJUNCTION WITH OTHER DIAGNOSTIC AND CLINICAL INFORMATION. Performing Lab: see note - [facility] LB XR KNEE RT 3V Reviewed date:11/05/2024 02:54:05 PM Interpretation: Performing Lab: Notes/Report: Source Facility: [place] [address] [place] [address] XRay Report Signed Patient: REVA RICHTER MR#: [id number] : 1955 Acct:[id number] Age/Sex: 69 / F ADM Date: 11/03/24 Loc: ER Attending Dr: Ordering Physician: Tonio Patterson Date of Service: 11/03/24 Procedure(s): XR knee RT 3V Accession Number(s): [id number] cc: Tonio Patterson; Re Curtis M.D. [place] [address] Patient Name: REVA RICHTER MRN: [facility]:[id number] date: 1955 Sex: F Assigned Patient Location: ED.MAIN Current Patient Location: ED.MAIN Accession/Order Number: [id number] Exam Date: 11/03/2024 22:55 Report Date: 11/03/2024 [...] Becerra M.D. 11/03/2024 10:57 PM Dictation Location: [place] [address] Electronically authenticated by: [id number] Date: 11/03/2024 22:57 Dictated By: Hunter Becerra M.D. Signed By: 11/03/242299 DD/ 56 TD/TT: Teletypewriter Operator: knee RT wo con Reviewed date:11/14/2024 12:46:33 PM Interpretation: Performing Lab: Notes/Report: Source Facility: [place] [address] Magnetic Resonance Report Signed Patient: REVA RICHTER MR#: [id number] : 1955 Acct:[id number] Age/Sex: 69 / F ADM Date: 11/14/24 Loc: MRI Attending Dr: Re Curtis M.D. Ordering Physician: Re Curtis M.D. Date of Service: 11/14/24 Procedure(s): knee RT wo con Accession Number(s): [id number] cc: Re Curtis M.D. [place] [address] Patient Name: REVA RICHTER MRN: [facility]:[id number] date: 1955 Sex: F Assigned Patient Location: MRI Current Patient Location: MRI Accession/Order Number: [id number] Exam Date: 11/14/2024 12:15 Report Date: 11/14/2024 12:28 At the request of: RE CURTIS MD Procedure: MR knee RT wo con MR knee RT wo con 11/14/2024 7:40 AM SIGNS AND SYMPTOMS: Acute right medial knee pain PROTOCOL: Multiplanar multisequence MR images of the right knee without contrast COMPARISON: 11/03/2024 FINDINGS: Fluid: There is a small joint effusion.. Medial compartment: Medial meniscus: There is a horizontally oriented tear extending through the body and posterior horn of the medial meniscus. No displaced fragments. The body of the medial meniscus is partially extruded from the joint space. Medial collateral ligament: Intact. 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 Medial tibial plateau cartilage: There is partial thickness chondromalacia. Lateral compartment: Lateral meniscus: Intact. Lateral collateral ligament: Intact. Lateral femoral condyle cartilage: Preserved. Lateral tibial plateau cartilage: Preserved. Posterolateral corner: Popliteus tendon: Intact. Popliteofibular ligament: Intact. Proximal tibiofibular joint: Normal. Anterior compartment: Alignment: Normal. Quadriceps tendon: Intact. Patellar tendon: Intact. Retinaculum: Medial intact. Lateral intact. Patellar cartilage: There is full thickness chondromalacia along the apex with subchondral cystic change.. Trochlea: There is partial thickness chondromalacia. . Plica: None. Hoffa fat pad: There is a ganglion cyst which extends posteriorly to the base of the anterior cruciate ligament. This measures 3.5 x 2.0 x 0.6 cm in greatest dimension. Intercondylar compartment: Anterior cruciate ligament: A ganglion cyst extends into the base of the anterior cruciate ligament.. The ligament is intact Posterior cruciate ligament: Intact. Bones (other than subarticular marrow): Normal. Muscles: Normal. Vessels: Normal. Nerves: Normal. MR/MR knee RT wo con IMPRESSION: There is a horizontally oriented tear extending through the body and posterior horn of the medial meniscus. No displaced fragments. The body of the medial meniscus is partially extruded from the joint space. There is a ganglion cyst which extends posteriorly to the base of the anterior cruciate ligament. This measures 3.5 x 2.0 x 0.6 cm in greatest dimension. The anterior cruciate ligament is intact. There is full thickness chondromalacia along the patellar apex with subchondral cystic change. There is full thickness chondromalacia along the medial femoral condyle with subchondral cystic change. Impression dictated by: Hunter Becerra M.D. 11/14/2024 12:28 PM Dictation Location: [place] [address] Electronically authenticated by: [id number] Y Date: 11/14/2024 12:28 Dictated By: Hunter Becerra M.D. Signed By: 11/14/24 1231 DD/ 1228 TD/TT: Teletypewriter Operator: XR chest 1V Reviewed date:10/25/2024 07:12:58 PM Interpretation: Performing Lab: Notes/Report: Source Facility: [place] [address] XRay Report Signed Patient: REVA RICHTER MR#: [id number] : 1955 Acct:[id number] Age/Sex: 69 / F ADM Date: 10/25/24 Loc: ER Attending Dr: Ordering Physician: Marine Pickett Date of Service: 10/25/24 Procedure(s): XR chest 1V Accession Number(s): [id number] cc: Re Curtis M.D.; Marine Pickett [place] [id number] Patient Name: REVA RICHTER MRN: [facility]:[id number] date: 1955 Sex: F Assigned Patient Location: ED.MAIN Current Patient Location: ED.MAIN Accession/Order Number: [id number] Exam Date: 10/25/2024 15:50 Report Date: 10/25/2024 [...] Becerra M.D. 10/25/2024 3:53 PM Dictation Location: [place] [address] Electronically authenticated by: [id number] Y Date: 10/25/2024 15:53 Dictated By: Hunter Becerra M.D. 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 Signed By: 10/27/24 0903 DD/ 1544 TD/TT: Teletypewriter Operator: IRON Reviewed date:09/06/2024 08:15:04 PM Interpretation: Performing Lab: Notes/Report: [facility] , Iron 81.0 50.0-170.0 ug/dL Performing Lab: see note - [facility] LB GLYCOHEMOGLOBIN A1C Reviewed date:09/06/2024 08:15:04 PM Interpretation: Performing Lab: Notes/Report: [facility] , Glycohemoglobin A1C 5.9 4.5-6.2 % ADA RECOMMENDED LIMIT 4.0 - 6.0 ADA THERAPEUTIC TARGET < 7.0 ACTION SUGGESTED > 7.0 Estimated Average Glucose 123 Performing Lab: see note ML - [facility] FREE T3 Reviewed date:09/06/2024 08:15:04 PM Interpretation: Performing Lab: Notes/Report: [facility] , Free T3 3.40 2.18-3.98 pg/mL Performing Lab: see note ML - [facility] LB CBC AUTO DIFF Reviewed date:09/06/2024 08:15:04 PM Interpretation: Performing Lab: Notes/Report: [facility] , White Blood Count 4.4 [...] Performing Lab: see note ML - [facility] Troponin I High Sensitivity Reviewed date:10/25/2024 07:12:58 PM Interpretation: Performing Lab: Notes/Report: [facility] , Troponin I High Sensitivity 7.5 4.0-51.3 pg/m L CUT-OFF POINTS HAVE BEEN ESTABLISHED BASED ON THE FOURTH UNIVERSAL DEFINITION OF MYOCARDIAL INFARCTION. THE UPPER REFERENCE LIMIT (URL) OF TROPONIN, DEFINED THE 99TH PERCENTILE OF cTnI DISTRIBUTION IN A REFERENCE POPULATION, HAS BEEN CONFIRMED THE DECISION THRESHOLD FOR AK DIAGNOSIS. 99TH PERCENTILE = 51.4 PG/ML NOTE: HIGH-SENSITIVITY TROPONIN ASSAY IS NOT INTENDED TO BE USED IN ISOLATION BUT SHOULD BE INTERPRETED IN CONJUNCTION WITH OTHER DIAGNOSTIC AND CLINICAL INFORMATION. Performing Lab: see note ML - [facility] Reason For Referral Diagnosis 1 Chest pain (R07.9) Referral Organization [facility] Referring Provider First Name Haile Referring Provider Last Name Dewayne Referring Provider Speciality [facility] yasir Referred Provider Lucas Mota Referred Provider Specialty Cardiology Referral Priority Routine Medications Medication SIG (Take, Route, Fr equency, [...] Problem Status W/U Status Risk Notes Problem Palpitations (30111991) Palpitation (R00.2) Active confirmed Problem Hepatitis C (62871792) Hepatitis C (B19.20) Active confirmed Problem Eczema (90742961) Eczema (L30.9) Active confirmed Problem Diverticular disease of colon (037864258) Diverticulosis (K57.90) Active confirmed Problem Gastritis (7840775) Gastritis (K29.70) Active confirmed Problem Plantar fasciitis (903921032) Plantar fasciitis (M72.2) Active confirmed Problem Pruritus (859616916) Pruritus (L29.9) Active confirmed Problem Overweight (563928525) Over weight (E66.3) Active confirmed Problem Nevus (5806791575) Nevus (D22.9) Active confirmed Problem History of infectious disease (030320106) History of hepatitis (Z86.19) Active confirmed Problem Internal derangement of knee (28663082) Internal derangement of knee (M23.90) Active confirmed Problem Essential hypertension (65095951) Essential Hypertension (I10) Active confirmed Problem Dyspnea on exertion (21687338) Dyspnea on exertion (R06.00) Active confirmed Vital Signs Heart Rate 93 /min 10/25/2024 Temperature 97.8 degrees Fahrenheit 10/25/2024 Blood pressure diastolic 82 mm Hg 01/10/2025 Height 65 in 01/10/2025 Blood pressure systolic 140 mm Hg 01/10/2025 Weight 163.0 lbs 01/10/2025 BMI 27.12 kg/m2 01/10/2025 Procedures Procedure Date Ordered Date Performed Result Body Sit e EKG w Interp & Report - performed 10/25/2024 N/ A CARDIO Stress Test - Treadmill Exercise 10/25/2024 N/A Encounters Encounter Location Date Provider Diagnosis [facility] [address] [place] [address] 09/05/2024 Haile Hoy Essential Hypertensi on I10 ; Over weight E66.3 ; Hepatitis C B19.20 and Eczema L30.9 [facility] [address] [place] [address] 09/23/2024 Haile Hoy Essential Hypertensi on I10 [facility] [address] [place] [address] 10/25/2024 Eileen Francisca Essential Hypertensi on I10 and Chest discomfort R07.89 [facility] [address] [place] [address] 11/07/2024 Haile Curtis Encounter for immunotherapy Z29.8 ; Chest pain R07.9 and Internal derangement of knee M23.90 [facility] [address] [place] [facility] [address] 01/10/2025 Haile Hoy Plantar fasciitis M7 2.2 [facility] [address] [place] [place] [facility] [address] 08/09/2024 Haile Hoy [facility] [address] [place] [place] [address] 08/23/2024 Haile Hoy Essential Hypertensi on I10 [facility] [address] [place] [place] [address] 09/06/2024 Haile Josephy [facility] [address] [place] [place] [address] 09/23/2024 Haile Hoy Essential Hypertensi on I10 [facility] [address] [place] [place] [address] 10/26/2024 Haile Hoy Essential Hypertensi on I10 [facility] [address] [place] [place] [address] 11/05/2024 Haile Hoy [facility] [address] [place] [place] [address] 11/10/2024 Haile Hoy Essential Hypertensi on I10 [facility] [address] [place] [place] [address] 11/14/2024 Haile Ruizy Assessments Encounter Date Diagnosis (ICD Code) Assessment Notes Treatment Notes Treatment Clinical Notes Section Notes 09/05/2024 Over weight (ICD-10 - E66.3) 09/05/2024 Essential Hypertension (ICD-10 - I10) 09/23/2024 Essential Hypertension (ICD-10 - I10) 10/25/2024 Chest discomfort (ICD-10 - R07.89) EKG stress test to ER for eval EKG here possible AK 10/25/2024 Essential Hypertension (ICD-10 - I10) 11/07/2024 Chest pain (ICD-10 - R07.9) nbeeds referrla to Cradiology 11/07/2024 Encounter for immunotherapy (ICD-10 - Z29.8) 01/10/2025 Plantar fasciitis (ICD-10 - M72.2) 08/23/2024 Essential Hypertension (ICD-10 - I10) 09/23/2024 Essential Hypertension (ICD-10 - I10) 10/26/2024 Essential Hypertension (ICD-10 - I10) 11/10/2024 Essential Hypertension (ICD-10 - I10) 09/05/2024 Hepatitis C (ICD-10 - B19.20) 11/07/2024 Internal derangement of knee (ICD-10 - M23.90) 09/05/2024 Eczema (ICD-10 - L30.9) Plan Of [...] End Date [place]IC[place] [address] [place] [address] [id number] Reva Richter Self - patient is the insured [employer] SUPPLEMENT [address] [address] [place], [place] [id number] [phone] [id number] Reva Richter Self - patient is the insured Medical (General) History Medical History History ICD Code Diverticulosis K57.90 Gastritis K29.70 Over weight E66.3 Nevus D22.9 Pruritus L29.9 History of hepatitis Z86.19 Eczema L30.9 Hepatitis C B19.20 Essential Hypertension I10 Surgical History Surgery Date(Month/Year) right hand surgery
--- NOTE | 2025-01-17 09:00 | CA_ITS ---
Patient Name: CHRISTY RICHTER MR#: [id number] : 1955 Exam Date: 01/17/2025 Ordering Doctor: DR. MARÍA ELENA ARMENTA M.D. ECHOCARDIOGRAM REPORT PROCEDURE: CA ECHO DOPPLER COMPLETE INDICATIONS: Dyspnea on exertion, hypertension COMPARISON: None. DESCRIPTION: COMPLETE ECHOCARDIOGRAM Real-time transthoracic echocardiography with 2D, M-mode, spectral and color flow Doppler performed. QUALITY: Technical quality was good. LEFT VENTRICLE: Normal chamber size. Mild concentric hypertrophy. Normal systolic function. LV EF: Normal left ventricular ejection fraction, (65%). DIASTOLIC: Diastolic function is indeterminate. ATRIAL SEPTUM: Visually appears intact. LEFT ATRIUM: Mild dilatation. RIGHT ATRIUM: Normal chamber size. RIGHT VENTRICLE: Normal chamber size. Normal right ventricular systolic function. TRICUSPID VALVE: Normal mobility and thickness. No stenosis with no regurgitation. Unable to assess right-sided pressures due to lack of measurable tricuspid regurgitation. MITRAL VALVE: Normal mobility and thickness. No evidence of mitral valve stenosis. There is no mitral annular calcification. No mitral regurgitation. AORTIC VALVE: Normal trileaflet appearance. No visible sclerosis. Normal leaflet mobility. No evidence of aortic valve stenosis. Mild aortic regurgitation. AORTIC ROOT: Normal diameter and appearance, measuring 3.1 cm. Ascending aorta is normal in size, measuring 2.8 cm. PULMONIC VALVE: Normal thickness and mobility. No stenosis. Trivial regurgitation. PERICARDIUM: No evidence of pericardial effusion. IVC: Collapses with inspiration. PLEURA: CONCLUSION: 1. Mild concentric left ventricular hypertrophy with normal systolic function. Estimated LVEF is 65%. 2. Normal right ventricular size and systolic function. 3. Mild aortic valve regurgitation. 4. Unable to assess right-sided pressures due to lack of measurable tricuspid regurgitation. Adult Echocardiography Procedure Report Left Ventricle LVEDD (3.7 - 5.6 cm): 3.50 cm LVESD (2.2 - 4.0 cm): 2.39 cm LVIVS thickness (0.6 - 1.2 cm): 1.25 cm LVPW thickness (0.5 - 1.0 cm): 0.96 cm e': 0.08 m/s E - e': 8.85 LVOT Max Gradient: 5.68 mm[Hg] LVOT Area (cm2): 1.19 m/s Peak Velocity (LVOT): 1.19 m/s Mean Velocity (LVOT): 0.82 m/s LVOT Diameter 2.29 cm Left Ventricular Ejection Fraction: 65 % Left Atrium LA Volume Index (2D A2C): 25.18 ml/m2 Left Atrium Systolic Dimension: 3.42 cm Mitral Valve MV E to A Ratio: 0.74 Mitral Valve A-Wave Peak Velocity: 0.91 m/s Mitral Valve E-Wave Peak Velocity: 0.67 m/s Right Ventricle Aorta AO Root Diam: 3.12 cm Ascending Ao Diam: 2.81 cm Aortic Valve AoV Area (Peak Geoffrey): 4.04 cm2, 4.04 cm2 AoV Area (VTI): 3.70 cm2, 3.70 cm2 Deceleration [place]: 1.95 m/s2 Pressure Half-Time: 597.69 ms Peak Velocity(Antegrade Flow): 1.22 m/s Peak Gradient(Antegrade Flow): 5.93 mm[Hg] Mean Velocity(Antegrade Flow): 0.87 m/s Mean Gradient(Antegrade Flow): 3.39 mm[Hg] Velocity Time Integral: 29.76 cm Tricuspid Valve Pulmonic Valve Peak Gradient: 2.60 mm[Hg], 2.89 mm[Hg] Right Atrium Right Atrium Systolic Pressure: 36.53 ml, 36.53 ml Dictated by: Lucas Mota M.D. on 01/17/2025 at 19:11 Approved by: Lucas Mota M.D. on 01/17/2025 at 19:15
== END 2025-01-17 08:58 | disposition home or self-care (01) ==
LOC: CARD 08:57
PROVIDERS: PCP Family Medicine; Visit Provider Internal Medicine Cardiovascular Disease
DX: R06.09 Other forms of dyspnea (principal)
CPT/HCPCS: 93306

== ENCOUNTER 2025-03-02 09:22 | Outpatient (OUT) | payer MEDICARE, OTHER, SELFPAY ==
--- NOTE | 2025-03-02 09:33 | MM_ITS ---
Patient Name: CHRISTY RICHTER MR#: [id number] : 1955 Exam Date: 03/02/2025 Ordering Doctor: DR RE CURTIS . RADIOLOGY REPORT PROCEDURE: MM TOMOSYNTHESIS SCREENING BI COMPARISON: MM TOMOSYNTHESIS SCREENING BI, 05/05/2023. MG MAMM SCREEN TONY W CAD, 07/31/2020. MG MAMM SCREEN TONY W CAD, 12/18/2016. INDICATIONS: screening Calculator Name NCI Breast Cancer Risk Assessment Tool 5 Year Breast Cancer Risk Not Reported. Lifetime Breast Cancer Risk Not Reported. Personal Breast Cancer No Personal Ovarian Cancer No Treatments None Family Cancers None LOCATION: [facility] BREAST COMPOSITION: There are scattered areas of fibroglandular density. FINDINGS: RIGHT BREAST: No significant suspicious finding. LEFT BREAST: No significant suspicious finding. DIAGNOSTIC CATEGORY 1--NEGATIVE. RECOMMENDATIONS: ROUTINE MAMMOGRAM AND CLINICAL EVALUATION IN 12 MONTHS. Dictated by: Varghese Copeland DO on 03/02/2025 at 13:57 Approved by: Varghese Copeland DO on 03/02/2025 at 14:00
== END 2025-03-02 09:23 | disposition home or self-care (01) ==
LOC: MAMMO 09:22
PROVIDERS: PCP Family Medicine; Visit Provider Family Medicine
DX: Z12.31 Encounter for screening mammogram for malignant neoplasm of breast (principal)
CPT/HCPCS: 77063; 77067

== ENCOUNTER 2025-03-02 09:53 | Outpatient (OUT) | payer MEDICARE, OTHER, SELFPAY ==
--- OUTSIDE RECORDS SUMMARY | 2024-10-25 09:00 | XMS_ITS ---
Author Organization The [facility] in [place] Address [address] [place] [address] Care Team Providers Care Tissue Packer Name Role Phone JosephHaile julien Primary Care Provider REASON FOR VISIT bp check Vital Signs Height 65 in 10/25/2024 Blood pressure systolic 146 mm Hg 10/26/19 25 Blood pressure diastolic 84 mm Hg 025 Encounters Encounter Location Date Provider Diagnosis [facility] [address] [place] [address] 10/25/2024 Haile Dewayne Essential Hypertensi on I10 Assessments Encounter Date Diagnosis (ICD Code) Assessment Notes Treatment Notes Treatment Clinical Notes Section Notes 10/25/2024 Essential Hypertension (ICD-10 - I10) Plan Of Treatment No Information Progress Notes * Reva RICHTERDOB: [birth year] (69 yo F)Acc No.[id number]:10/25/2024 UNLOCKED PROGRESS NOTE BP Check Patient: Mehreen Reva OBRIEN :?Akash Buchanan ([facility]), MDDOB:1955???Age: 69 Y???Sex:FemaleDate:10/25/2024Phone:[phone]:[address] [place], [place] [id number] In:02:08 PM EST Subjective: * Chief Complaints: * 1 . Bp check. * Medical History: Objective: * Vitals: H t: 65 in, BP:146/84mm Hg, Ht-cm: 165.1 cm. Assessment: * Assessment: 1.?Essential Hypertension - I10 (Primary)??? Plan: * Treatment: * * Electronic signature of Haile Buchanan MD, [id number] on 03/02/2025 at 09:58 AM EST Sign off status: PendingVisit Status:?OFF CANC (OFFICE CANCEL) * Provider: Denny Buchanan ([facility])MD Date: 0 10/25/2024 Generated for Printing/Faxing/eTransmitting on:?03/02/2025 09:58 AM EST
--- OUTSIDE RECORDS SUMMARY | 2025-03-02 09:58 | XMS_ITS | Clinical Summary ---
Author Organization [facility] Address [address] [place] [address] Care Team Providers Care Engraver Flatware Name Role Phone Akash Buchanan MD Primary Care Provider [phone] Allergies Active AllergyReactionsCriticalityNoted BdhbYpqoiafhDxeyndhznyIjcwg76/18/2025 MetoprololNausea Only11/23/2024Tramadol SrwSytrwxg48/18/2025 Medications MedicationSigDispense QuantityRefillsLast FilledStart DateEnd DateStatus amLODIPine (Norvasc) 10 mg tablet Take 1 tablet by mouth in the morning.5Active meloxicam (Mobic) 15 mg tablet Take 15 mg by mouth in the morning.Active spironolactone (Aldactone) 50 mg tablet Indications:Essential hypertensionTake 1 tablet (50 mg) by mouth in the morning. 30 tablet 11151ctive Active Problems ProblemNoted DateDiagnosed DatePlantar fobogaout97/29/2025Nonrheumatic aortic (valve) jrhhriljgaokx17/29/6338Ymyxjxktn02/18/2025History of infectious disease 01/05/2025Internal derangement of knee01/05/2025Throat fuatqzlnib43/11/2025DOE (dyspnea on exertion)11/28/20247376Ayuikhnmyafg33/11/2025BMI 27.0-27.9,adult 11/23/2024Diverticular disease of colon11/23/20246758Nwwphv74/06/2025Family history of colon cancer requiring screening jityxztdjdz78/06/2025Hepatitis C, chronic 11/23/2024Essential mbxqymdcjqsm58/06/2025Keratosis, tkviooszzy51/06/2025Nevus 11/23/20241337Ooproroemf68/06/2025Granuloma of skin11/23/2024Epiretinal membrane 11/01/2018Posterior vitreous cwsnotxbct31/15/2019 Encounters DateTypeDepartmentCare UjdtDqcrljpalmf59/29/2025 3:00 PM EDTOffice Visit [facility] [address] [place] [address] Jocelin Rodríguez MD Essential hypertension (Primary Dx); DIAMOND (dyspnea on exertion); Palpitations; Nonrheumatic aortic (valve) insufficiency; BMI 27.0-27.9,adult; Oooqlpeorj61/15/2025Orders Only [facility] [address] [place] [facility] [place] [address] ProviderLorraine MD 11/30/2024 1:20 PM EDTOffice Visit [facility] [address] [place] [address] [place] [address] Fernando Singh MD Tear of medial meniscus of right knee, current, unspecified tear type, initial encounter (Primary Dx)from Last 3 Months Family History RelationNameStatusCommentsFatherDeceasedMotherDeceased Social History Tobacco UseTypesPacks/DayYears UsedDateSmoking Tobacco: NeverSmokeless Tobacco: Never Tobacco Cessation:Counseling Given: Not Answered Alcohol UseStandard Drinks/WeekCommentsYes2 (1 standard drink = 0.6 oz pure alcohol)[id number] Health LiteracyAnswerDate RecordedHow often do you need to have someone help you when you read instructions, pamphlets, or other written material from your doctor or pharmacy?Never11/30/2024HC UtilitiesAnswerDate RecordedIn the past 12 months has the [place] [address], gas, oil, or water [employer] threatened to shut off services in your home?No11/30/2024Humiliation, Afraid, Rape, and Kick questionnaireAnswerDate RecordedWithin the last year, have you been afraid of your partner or ex-partner?No11/30/2024Within the last year, have you been humiliated or emotionally abused in other ways by your partner or ex-partner?No11/30/2024Within the last year, have you been kicked, hit, slapped, or otherwise physically hurt by your partner or ex-partner?No11/30/2024Within the last year, have you been raped or forced to have any kind of sexual activity by your partner or ex-partner?No11/30/2024Social Connection and Isolation Panel AnswerDate RecordedIn a typical week, how many times do you talk on the phone with family, friends, or neighbors?More than three times a week11/30/2024How often do you get together with friends or relatives?More than three times a week 11/30/2024How often do you attend bahai or scientology services?More than 4 times per year11/30/2024Do you belong to any clubs or organizations such as bahai groups, unions, fraternal or athletic groups, or school groups?Yes11/30/2024How often do you attend meetings of the clubs or organizations you belong to?1 to 4 times per year11/30/2024re you , , , , never , or living with a partner?Brckoaw8711/30/2024UDIT-CAnswerDate RecordedQ1: How often do you have a drink containing alcohol?Never11/30/2024Q2: How many drinks containing alcohol do you have on a typical day when you are drinking? Patient does not drink11/30/2024Q3: How often do you have six or more drinks on one occasion?Never11/30/2024Overall Financial Resource Strain (CARDIA)AnswerDate RecordedHow hard is it for you to pay for the very basics like food, housing, medical care, and heating?Not very hard11/30/2024[facility] [place] [facility] - Occupational Stress QuestionnaireAnswerDate RecordedDo you feel stress - tense, restless, nervous, or anxious, or unable to sleep at night because yourmind is troubled all the time - these days?Rather much11/30/2024 Exercise Vital SignAnswerDate RecordedOn average, how many days per week do you engage in moderate to strenuous exercise (like a brisk walk)?3 days11/30/2024On average, how many minutes do you engage in exercise at this level?60 min 11/30/2024TransportationAnswerDate RecordedIn the past 12 months, has lack of transportation kept you from medical appointments or from getting medications?No 11/30/2024In the past 12 months, has lack of transportation kept you from meetings, work, or from getting things needed for daily living?No11/30/2024 Housing Stability Vital SignAnswerDate RecordedIn the last 12 months, was there a time when you were not able to pay the mortgage or rent on time?No11/30/2024 Number of Times Moved in the Last YearNot on file11/30/2024t any time in the past 12 months, were you homeless or living in a senior living (including now)?No 11/30/2024Hunger Vital SignAnswerDate RecordedWithin the past 12 months, you worried that your food would run out before you got the money to buymore.Never true11/30/2024Within the past 12 months, the food you bought just didn't last and you didn't have money to get more.Never true11/30/2024Comments UnknownSex and Gender InformationValueDate RecordedSex Assigned at BirthFemale 11/22/2024 3:47 PM EDTLegal IloMybqlv54/23/2025 10:01 AM EDTGender Identity Qgphbd2611/22/2024 3:47 PM EDTSexual OrientationChoose not to ryohdjds32/29/2025 10:10 AM EDT Last Filed Vital Signs Vital SignReadingTime TakenCommentsBlood Xcmncydq309/8610 3:42 PM EDT Jcevz924602/15/2025 3:42 PM EDTTemperature--Respiratory Rate--Oxygen Cqttnbnlkn95% 02/15/2025 3:42 PM EDTInhaled Oxygen Concentration--Strkjk46.9 kg (163 lb) 02/15/2025 3:42 PM OLIHysism058.1 cm (5' 5 )02/15/2025 3:42 PM EDTBody Mass Index27.121 3:42 PM EDT Plan of Treatment Health MaintenanceDue DateLast DoneCommentsCT Oykklsicqcns28/09/1956FIT-DNA 1955FIT1955FOBT1955Medicare Annual Wellness (AWV)1955 Vujddhcsxowsc50/09/1956Depression Xmzvivawh42/09/1968Pneumococcal Vaccine: 50+ Years (1 of 2 - PCV)1974Adult Wivyumx4004/28/19772305Kmogcyxqi20/09/1996Zoster Vaccines (1 of 2)2005COVID-19 Vaccine (4 - 2024- season)2024 04/10/2021, 08/03/2020, 07/03/2020Influenza Vaccine (#1)2024Fall Risk Ezhphspxo59/13/40443611/30/20240638Adegwkqxjlq49/09/203106/olorectal Cancer Xosmkmfzh12/09/2031HIB VaccinesAged OutNo longer eligible based on patient's age to complete this topicHPV VaccinesAged OutNo longer eligible based on patient's age to complete this topicIPV VaccinesAged OutNo longer eligible based on patient's age to complete this topicMeningococcal B VaccineAged OutNo longer eligible based on patient's age to complete this topicMeningococcal VaccineAged OutNo longer eligible based on patient's age to complete this topicRotavirus VaccinesAged OutNo longer eligible based on patient's age to complete this topic Procedures Procedure NamePriorityDate/TimeAssociated DiagnosisCommentsHOLTER MONITOR LONG YAJQVglrotw95/21/2025 10:52 AM EDTPR ARTHROCENTESIS ASPIR&/INJ MAJOR JT/BURSA W/O WTYlnfnih77/13/2025 2:03 PM EDT Tear of medial meniscus of right knee, current, unspecified tear type, initial encounter from Last 3 Months Results * Holter monitor - [facility] (12/08/2024 10:52 AM EDT)Anatomical Region LateralityModalityOther Narrative Authorizing ProviderResult TypeResult StatusHistorical Provider MDCV CARDIAC SERVICES PROCEDURESFinal Result * ID ARTHROCENTESIS ASPIR&/INJ MAJOR JT/BURSA W/O US (11/30/2024 [...] and draped in the usual sterile fashion. Authorizing ProviderResult TypeResult StatusJacojean pierre Singh MDIN CLINIC/BEDSIDE ORDERABLESFinal Result from Last 3 Months Insurance * Guarantor: Reva Franco TypeRelation to PatientDate of BirthPhone Billing AddressPersonal/HkxsndIgxz29[birth year][id number] [address] Care Teams Team MemberRelationshipSpecialtyStart Date Akash Buchanan MD [address] [facility] [place] [address] PCP - [facility]11/15/24
--- OUTSIDE RECORDS SUMMARY | 2025-03-02 09:58 | XMS_ITS | Clinical Summary ---
Author Organization [facility] Address [address] [place] [address] Care Team Providers Care Data Processing Operator Name Role Phone Unavailable Primary Care Provider Unavailabl e Social History Tobacco UseTypesPacks/DayYears UsedDateSmoking Tobacco: Never Assessed CommentsUnknownSex and Gender InformationValueDate RecordedSex Assigned at Not on fileLegal KhhInpvsl64/15/2023 6:51 PM EDTGender IdentityNot on fileSexual OrientationNot on file Plan of Treatment Not on file
--- OUTSIDE RECORDS SUMMARY | 2025-03-02 09:58 | XMS_ITS | Patient Health Record ---
Author Organization [facility] in [place] Address [address] [place] [address] Care Team Providers Care Commercial Review Appraiser Name Role Phone Haile Curtis Primary Care Provider [phone] Eileen Espinosa Unavailable [phone] Allergies Allergen (clinical drug ingredient) Drug/Non Drug Allergy documented on EMR Reaction Allergy Type Onset Date Status tramadol traMADol HCl lightheaded Drug Allergy ActivelisinoprilLisinoprilcoughDrug AllergyActive Results Component Value Reference Range Notes CBC AUTO DIFF Reviewed date:09/06/2024 08:15:04 PM Interpretation: Performing Lab: Notes/Report: The , White Blood Count 4.4 4.0-11.0 10 3/uL Red Blood Count4.334.20-5.40 10 6/uORqnckpqhcq64.912.0-16.0 g/qFHewrhgrcrr20.7 36.0-48.0 %Mean Corpuscular Dgczzu54.481.0-99.0 fLMean Corpuscular Hemoglobin 29.826.7-34.0 pgMean Corpuscular HGB Conc33.329.9-35.2 g/dLRed Cell Distribution Width12.711.0-15.0 %Platelet Idinu429210-441 10 3/uLMean Platelet Budorm19.19.5- 13.5 fLNeutrophils Percent Auto59.343.0-75.0 %Lymphocytes Percent Auto31.720.5- 60.0 %Monocytes Percent Auto7.41.7-12.0 %Eosinophils Percent Auto1.40.9-7.0 % Basophils Percent Auto0.00.2-2.0 %Immature Granulocytes Pct Auto0.20.0-0.5 % Neutrophils Absolute Auto2.61.4-6.5 10 3/uLLymphocytes Absolute Auto1.41.2-3.8 10 3/uLMonocytes Absolute Auto0.30.3-0.8 10 3/uLEosinophils Absolute Auto0.10.0- 0.7 10 3/uLBasophils Absolute Auto0.00.0-0.1 10 3/uLImmature Granulocytes Abs Auto0.010.00-0.03 10 3/uLPerforming Lab:see note - [facility] FREE T3 Reviewed date:09/06/2024 08:15:04 PM Interpretation: Performing Lab: Notes/Report: The ,Free T33.402.18-3.98 pg/mLPerforming Lab:see [facility] GLYCOHEMOGLOBIN A1C Reviewed date:09/06/2024 08:15:04 PM Interpretation: Performing Lab: Notes/Report: The ,Glycohemoglobin A1C5.94.5-6.2 % ADA RECOMMENDED LIMIT 4.0 - 6.0 ADA THERAPEUTIC TARGET < 7.0 ACTION SUGGESTED > 7.0 Estimated Average Kkwxgkh725Gazmkbwkhl Lab:see [facility] IRON Reviewed date:09/06/2024 08:15:04 PM Interpretation: Performing Lab: Notes/Report: The ,Iron81.050.0-170.0 ug/dLPerforming Lab:see [facility] LIPID PROFILE Reviewed date:09/06/2024 08:15:04 PM Interpretation: Performing Lab: Notes/Report: The ,Ocsrdbvcqzmyz88<=150 mg/nWQclfslcjqba946<=200 mg/dLHDL Jsrrfcugiql2856-70 mg/dL > or =60 mg/dl - LOW CARDIOVASCULAR RISK <40 mg/dl - HIGH CARDIOVASCULAR RISK LDL Cholesterol Tjtrskmxwz78.0 <100 mg/dl OPTIMAL 100-129 mg/dl NEAR OR ABOVE OPTIMAL 130-159 mg/dl BORDERLINE HIGH 160-189 mg/dl HIGH >190 mg/dl VERY HIGH VLDL ZFBDQKCQYQU01.6Chol HDL Ratio2.2 3.3 - 4.4 LOW RISK 4.4 - 7.1 AVERAGE RISK 7.1 - 11.0 MODERATE RISK >11.0 HIGH RISK Performing Lab:see note - [facility] LBPROF 14(COMP METB) Reviewed date:09/06/2024 08:15:04 PM Interpretation: Performing Lab: Notes/Report: The ,Elwfrc626793-363 mmol/LPotassium4.53.5-5.1 mmol/UYoiitnec15678-626 mmol/LCarbon Khsqavc62.921.0-32.0 mmol/LAnion Gap13.8Jlwrfvv50361-685 mg/dLBlood Urea Dixtvvwj04.07.0-18.0 mg/dLCreatinine0.750.55-1.02 mg/dLEstimated GFR ( Dot>60>=60 mL/min/1.73m 2Estimated GFR (Non- Queenie>60>=60 mL/min/1.73m 2BUN Creatinine Ratio28.5Snesjlt3.08.5-10.1 mg/dLBilirubin Total0.50.2-1.0 mg/dL Aspartate Amino Efltmaqxxal9833-20 U/LAlanine Zoxgpjurwaagdzlq9241-51 U/L Alkaline Dchhhkclpfh2245-259 U/LTotal Protein7.46.4-8.2 g/dLAlbumin Level3.73.4- 5.0 g/dLGlobulin3.7Albumin Globulin Ratio1.0Performing Lab:see note - [facility] LBT4 Reviewed date:09/06/2024 08:15:04 PM Interpretation: Performing Lab: Notes/Report: The ,T4 Thyroxine8.504.80-13.90 ug/dLPerforming Lab:see note - [facility] LBTSH Reviewed date:09/06/2024 08:15:04 PM Interpretation: Performing Lab: Notes/Report: The ,Thyroid Stimulating Hormone1.7980.358-3.740 uIU/mLPerforming Lab:see note - [facility] LBCBC AUTO DIFF Reviewed date:10/25/2024 07:12:58 PM Interpretation: Performing Lab: Notes/Report: The ,White Blood Count6.64.0-11.0 10 3/uLRed Blood Count4.404.20-5.40 10 6/uL Xcbofkfbjm35.912.0-16.0 g/xPSmrvyyefdd05.136.0-48.0 %Mean Corpuscular Hdkkuk50.9 81.0-99.0 fLMean Corpuscular Ipyslryfay01.326.7-34.0 pgMean Corpuscular HGB Conc 33.029.9-35.2 g/dLRed Cell Distribution Width12.611.0-15.0 %Platelet Cjjqh098 150-450 10 3/uLMean Platelet Lnxjlx53.29.5-13.5 fLNeutrophils Percent Auto68.5 43.0-75.0 %Lymphocytes Percent Auto24.620.5-60.0 %Monocytes Percent Auto6.01.7- 12.0 %Eosinophils Percent Auto0.50.9-7.0 %Basophils Percent Auto0.20.2-2.0 % Immature Granulocytes Pct Auto0.20.0-0.5 %Neutrophils Absolute Auto4.51.4-6.5 10 3/uLLymphocytes Absolute Auto1.61.2-3.8 10 3/uLMonocytes Absolute Auto0.40.3-0.8 10 3/uLEosinophils Absolute Auto0.00.0-0.7 10 3/uLBasophils Absolute Auto0.00.0- 0.1 10 3/uLImmature Granulocytes Abs Auto0.010.00-0.03 10 3/uLPerforming Lab:see noteML - The LBECG 12 lead Reviewed date:10/27/2024 06:24:12 PM Interpretation: Performing Lab: Notes/Report: Source Facility: -[address] [place] [address] [place] [address] Electrocardiograph Report Signed Patient: REVA RICHTER MR#: [id number] : 1955 Acct:[id number] Age/Sex: 69 / F ADM Date: 10/25/24 Loc: ER Attending Dr: Ordering Physician: Marine Pickett Date of Service: 10/25/24 Procedure(s): ECG 12 lead Accession Number(s): [id number] cc: The Test Date: 2024-10-25 Pat Name: REVA RICHTER Department: Room: - 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 Signed By: 10/27/24 0903 DD/ 1544 TD/TT: [employer] Scout:XR chest 1V Reviewed date:10/25/2024 07:12:58 PM Interpretation: Performing Lab: Notes/Report: Source Facility: [place] [address] XRay Report Signed Patient: REVA RICHTER MR#: [id number] : 1955 Acct:[id number] Age/Sex: 69 / F ADM Date: 10/25/24 Loc: ER Attending Dr: Ordering Physician: Marine Pickett Date of Service: 10/25/24 Procedure(s): XR chest 1V Accession Number(s): [id number] cc: Re Curtis M.D.; Marine Pickett [place] [address] Patient Name: REVA RICHTER MRN: [facility]:[id number] date: 1955 Sex: F Assigned Patient Location: ED.MAIN Current Patient Location: ED.MAIN Accession/Order Number: [id number] Exam Date: 10/25/2024 15:50 Report Date: 10/25/2024 [...] Becerra M.D. 10/25/2024 3:53 PM Dictation Location: [place] [address] Electronically authenticated by: [id number] Y Date: 10/25/2024 15:53 Dictated By: Hunter Becerra M.D. Signed By: 10/25/24 1555 DD/ 1553 TD/TT: [employer] Scout:Troponin I High Sensitivity Reviewed date:10/25/2024 07:12:58 PM Interpretation: Performing Lab: Notes/Report: The ,Troponin I High Sensitivity7.54.0-51.3 pg/mL CUT-OFF POINTS HAVE BEEN ESTABLISHED BASED ON THE FOURTH UNIVERSAL DEFINITION OF MYOCARDIAL INFARCTION. THE UPPER REFERENCE LIMIT (URL) OF TROPONIN, DEFINED THE 99TH PERCENTILE OF cTnI DISTRIBUTION IN A REFERENCE POPULATION, HAS BEEN CONFIRMED THE DECISION THRESHOLD FOR [place] DIAGNOSIS. 99TH PERCENTILE = 51.4 PG/ML NOTE: HIGH-SENSITIVITY TROPONIN ASSAY IS NOT INTENDED TO BE USED IN ISOLATION BUT SHOULD BE INTERPRETED IN CONJUNCTION WITH OTHER DIAGNOSTIC AND CLINICAL INFORMATION. Performing Lab:see noteML - The LBXR KNEE RT 3V Reviewed date:11/05/2024 02:54:05 PM Interpretation: Performing Lab: Notes/Report: Source Facility: -[address] [place] [address] [place] [address] XRay Report Signed Patient: REVA RICHTER MR#: [id number] : 1955 Acct:[id number] Age/Sex: 69 / F ADM Date: 11/03/24 Loc: ER Attending Dr: Ordering Physician: Tonio Patterson Date of Service: 11/03/24 Procedure(s): XR knee RT 3V Accession Number(s): [id number] cc: Tonio Patterson; Re Curtis M.D. [place] [address] Patient Name: REVA RICHTER MRN: [facility]:[id number] date: 1955 Sex: F Assigned Patient Location: ED.MAIN Current Patient Location: ED.MAIN Accession/Order Number: [id number] Exam Date: 11/03/2024 22:55 Report Date: 11/03/2024 [...] Becerra M.D. 11/03/2024 10:57 PM Dictation Location: [place] [address] Electronically authenticated by: [id number] Y Date: 11/03/2024 22:57 Dictated By: Hunter Becerra M.D. Signed By: 11/03/242299 DD/ 56 TD/TT: [employer] Scout:MR knee RT wo con Reviewed date:11/14/2024 12:46:33 PM Interpretation: Performing Lab: Notes/Report: Source Facility: [place] [address] Magnetic Resonance Report Signed Patient: REVA RICHTER MR#: [id number] : 1955 Acct:[id number] Age/Sex: 69 / F ADM Date: 11/14/24 Loc: MRI Attending Dr: Re Curtis M.D. Ordering Physician: Re Curtis M.D. Date of Service: 11/14/24 Procedure(s): MR knee RT wo con Accession Number(s): [id number] cc: Re Curtis M.D. [place] [address] Patient Name: REVA RICHTER MRN: [facility]:[id number] date: 1955 Sex: F Assigned Patient Location: MRI Current Patient Location: MRI Accession/Order Number: [id number] Exam Date: 11/14/2024 12:15 Report Date: 11/14/2024 [...] Becerra M.D. 11/14/2024 12:28 PM Dictation Location: [place] Electronically authenticated by: [id number] Y Date: 11/14/2024 12:28 Dictated By: Hunter Becerra M.D. Signed By: 11/14/24 1231 DD/ 1228 TD/TT: [employer] Scout:Troponin I High Sensitivity Reviewed date:10/25/2024 07:12:58 PM Interpretation: Performing Lab: Notes/Report: [facility] ,Troponin I High Sensitivity7.24.0-51.3 pg/mL CUT-OFF POINTS HAVE BEEN ESTABLISHED BASED ON THE FOURTH UNIVERSAL DEFINITION OF MYOCARDIAL INFARCTION. THE UPPER REFERENCE LIMIT (URL) OF TROPONIN, DEFINED THE 99TH PERCENTILE OF cTnI DISTRIBUTION IN A REFERENCE POPULATION, HAS BEEN CONFIRMED THE DECISION THRESHOLD FOR [place] DIAGNOSIS. 99TH PERCENTILE = 51.4 PG/ML NOTE: HIGH-SENSITIVITY TROPONIN ASSAY IS NOT INTENDED TO BE USED IN ISOLATION BUT SHOULD BE INTERPRETED IN CONJUNCTION WITH OTHER DIAGNOSTIC AND CLINICAL INFORMATION. Performing Lab:see noteML - [facility] LBProthrombin Time INR Reviewed date:10/25/2024 07:12:58 PM Interpretation: Performing Lab: Notes/Report: The ,Prothrombin Time10.99.0-11.6 secINR1.03 DESIRED INR: 2.0-3.0 CONDITIONS NOT LISTED BELOW 2.5-3.5 FOR PROSTHETIC HEART VALVE REPLACEMENT 2.5-3.5 RECURRENT THROMBOSIS Performing Lab:see noteML - [facility] LBPROF 14(COMP METB) Reviewed date:10/25/2024 07:12:58 PM Interpretation: Performing Lab: Notes/Report: The ,Klsrrh733857-416 mmol/LPotassium3.63.5-5.1 mmol/JOotnhgvd28896-539 mmol/LCarbon Sjpmpux99.721.0-32.0 mmol/LAnion Gap10.9Nqqoeqi62310-802 mg/dLBlood Urea Wjejrxep30.07.0-18.0 mg/dLCreatinine1.300.55-1.02 mg/dLEstimated GFR ( Cmzaptg23>=60 mL/min/1.73m 2Estimated GFR (Non- Ame41>=60 mL/min/1.73m 2 BUN Creatinine Ratio17.9Pulyxbr6.18.5-10.1 mg/dLBilirubin Total0.40.2-1.0 mg/dL Aspartate Amino Lbazqnmjmmp4830-99 U/LAlanine Oqsldwmvgbctdpuw2424-54 U/L Alkaline Hdmxfhgyqww6377-531 U/LTotal Protein7.56.4-8.2 g/dLAlbumin Level3.83.4- 5.0 g/dLGlobulin3.7Albumin Globulin Ratio1.0Performing Lab:see noteML - [facility] LBCA echo doppler complete Reviewed date:01/18/2025 01:02:43 PM Interpretation: Performing Lab: Notes/Report: Source Facility: [place] [address] Cardiology Report Signed Patient: REVA RICHTER MR#: [id number] : 1955 Acct:[id number] Age/Sex: 69 / F ADM Date: 01/17/25 Loc: CARD Attending Dr: María Elena Rodríguez M.D. Ordering Physician: María Elena Rodríguez M.D. Date of Service: 01/17/25 Procedure(s): CA echo doppler complete Accession Number(s): [id number] cc: Re Curtis M.D.; María Elena Rodríguez M.D. Patient Name: REVA RICHTER MR#: [id number] : 1955 Exam Date: 01/17/2025 Ordering Doctor: DR. MARÍA ELENA RODRÍGUEZ M.D. ECHOCARDIOGRAM REPORT PROCEDURE: CA ECHO DOPPLER COMPLETE INDICATIONS: Dyspnea on exertion, hypertension COMPARISON: None. DESCRIPTION: COMPLETE ECHOCARDIOGRAM Real-time transthoracic echocardiography with 2D, M-mode, spectral and color flow Doppler performed. QUALITY: Technical quality was good. LEFT VENTRICLE: Normal chamber size. Mild concentric hypertrophy. Normal systolic function. LV EF: Normal left ventricular ejection fraction, (65%). DIASTOLIC: Diastolic function is indeterminate. ATRIAL SEPTUM: Visually appears intact. LEFT ATRIUM: Mild dilatation. RIGHT ATRIUM: Normal chamber size. RIGHT VENTRICLE: Normal chamber size. Normal right ventricular systolic function. TRICUSPID VALVE: Normal mobility and thickness. No stenosis with no regurgitation. Unable to assess right-sided pressures due to lack of measurable tricuspid regurgitation. MITRAL VALVE: Normal mobility and thickness. No evidence of mitral valve stenosis. There is no mitral annular calcification. No mitral regurgitation. AORTIC VALVE: Normal trileaflet appearance. No visible sclerosis. Normal leaflet mobility. No evidence of aortic valve stenosis. Mild aortic regurgitation. AORTIC ROOT: Normal diameter and appearance, measuring 3.1 cm. Ascending aorta is normal in size, measuring 2.8 cm. PULMONIC VALVE: Normal thickness and mobility. No stenosis. Trivial regurgitation. PERICARDIUM: No evidence of pericardial effusion. IVC: Collapses with inspiration. PLEURA: CONCLUSION: 1. Mild concentric left ventricular hypertrophy with normal systolic function. Estimated LVEF is 65%. 2. Normal right ventricular size and systolic function. 3. Mild aortic valve regurgitation. 4. Unable to assess right-sided pressures due to lack of measurable tricuspid regurgitation. Adult Echocardiography Procedure Report Left Ventricle LVEDD (3.7 - 5.6 cm): 3.50 cm LVESD (2.2 - 4.0 cm): 2.39 cm LVIVS thickness (0.6 - 1.2 cm): 1.25 cm LVPW thickness (0.5 - 1.0 cm): 0.96 cm e': 0.08 m/s E - e': 8.85 LVOT Max Gradient: 5.68 mm[Hg] LVOT Area (cm2): 1.19 m/s Peak Velocity (LVOT): 1.19 m/s Mean Velocity (LVOT): 0.82 m/s LVOT Diameter 2.29 cm Left Ventricular Ejection Fraction: 65 % Left Atrium LA Volume Index (2D A2C): 25.18 ml/m2 Left Atrium Systolic Dimension: 3.42 cm Mitral Valve MV E to A Ratio: 0.74 Mitral Valve A-Wave Peak Velocity: 0.91 m/s Mitral Valve E-Wave Peak Velocity: 0.67 m/s Right Ventricle Aorta AO Root Diam: 3.12 cm Ascending Ao Diam: 2.81 cm Aortic Valve AoV Area (Peak Geoffrey): 4.04 cm2, 4.04 cm2 AoV Area (VTI): 3.70 cm2, 3.70 cm2 Deceleration [place]: 1.95 m/s2 Pressure Half-Time: 597.69 ms Peak Velocity(Antegrade Flow): 1.22 m/s Peak Gradient(Antegrade Flow): 5.93 mm[Hg] Mean Velocity(Antegrade Flow): 0.87 m/s Mean Gradient(Antegrade Flow): 3.39 mm[Hg] Velocity Time Integral: 29.76 cm Tricuspid Valve Pulmonic Valve Peak Gradient: 2.60 mm[Hg], 2.89 mm[Hg] Right Atrium Right Atrium Systolic Pressure: 36.53 ml, 36.53 ml Dictated by: Paulino Mota M.D. on 01/17/2025 at 19:11 Approved by: Paulino Mota M.D. on 01/17/2025 at 19:15 Dictated By: PAULINO MOTA Signed By: 01/17/251915 DD/ 14 TD/TT: [employer] Scout: Reason For Referral Diagnosis 1 Chest pain (R07.9) Referral Organization [facility] Referring Provider First Name Haile Referring Provider Last Name Dewayne Referring Provider [facility] Referred Provider Paulino Mota Referred Provider Specialty Cardiology Referral Priority Routine Medications Medication SIG (Take, Route, Frequency, Duration) Notes Start Date End Date Status Meloxicam 15 MG 1 tablet Orally Once a day; Dura tion: 30 days 5ActiveNorvasc 10 MG1 tablet Orally Once a day; Duration: 30 days 5Active Social History Tobacco Use: Social History Observation Description Date Details (start date - stop date) Never Smoker NA - NA Tobacco Use/Smoking Question Answer Notes Patient is a nonsmoker Alcohol Screen (Audit-C) Question Answer Notes Did you have a drink containing alcohol in the p ast year? Yes How often did you have 6 or more drinks on one occasion in the past year?Never (0 point)How many drinks did you have on a typical day when you were drinking in the past year?1 or 2 drinks (0 point)How often did you have a drink containing alcohol in the past year?Less than monthly (1 point)Kikomd2Wwvchjmidfmvxg NegativeAUDIT-C (Standard) Question Answer Notes Did you have a drink containing alcohol in the p ast year? No Ubdfkx1QrgkthkahnfqhlDyphmplt Problems Problem Type SNOMED Code ICD Code Onset Dates Problem Status W/U Status Risk Notes Problem Palpitations (82382438) Palpitation (R00. 2) ActiveconfirmedProblemHepatitis C (39983461)Hepatitis C (B19.20)Activeconfirmed ProblemEczema (78106727)Eczema (L30.9)ActiveconfirmedProblemDiverticular disease of colon (088916448)Diverticulosis (K57.90)ActiveconfirmedProblemGastritis (7233266)Gastritis (K29.70)ActiveconfirmedProblemPlantar fasciitis (945523548) Plantar fasciitis (M72.2)ActiveconfirmedProblemPruritus (696533068)Pruritus (L29.9)ActiveconfirmedProblemOverweight (114040420)Over weight (E66.3)Active confirmedProblemNevus (6467045846)Nevus (D22.9)ActiveconfirmedProblemHistory of infectious disease (443592048)History of hepatitis (Z86.19)Activeconfirmed ProblemInternal derangement of knee (37232801)Internal derangement of knee (M23.90)ActiveconfirmedProblemEssential hypertension (03201410)Essential Hypertension (I10)ActiveconfirmedProblemDyspnea on exertion (78106753)Dyspnea on exertion (R06.00)Activeconfirmed Vital Signs Heart Rate 93 /min 10/25/2024 Ubindmwswzq06.8 degrees Rfcnbdehmi49/08/2025lood pressure ntavmpzqw77 mm Hg 01/10/20255710Razoeh12 in01/10/2025lood pressure mm Hg01/10/2025Weight 163.0 lbs01/10/2025BMI27.12 kg/m201/10/2025 Procedures Procedure Date Ordered Date Performed Result Body Sit e EKG w Interp & Report - performed 10/25/2024 N/ACARDIO Stress Test - Treadmill Nhhdfzal73/08/2025N/A Encounters Encounter Location Date Provider Diagnosis [facility] [address] [facility] [place] [address] 08/09/2024 Haile y [facility] [place] [facility] [place] [address] 08/23/2024Doug HoyEssential Hypertension K[address]Drsxy[address] [place], [place] [address] [place] [place] [address]/Doug [facility] [place] [place] [address]/09/2024Doug HoyEssential Hypertension T29GxuodkdDen[facility] [place] [place] [address]/12/2024Doug HoyEssential Hypertension L25Ojukztf[address] [place], [place] [address] [place] [place] [address]/[facility] [facility] [place] [address]/ Haile HoyEssential Hypertension D80YuylzxeDenver Health Medical Center[address] [place] [place] [address]/Doug [facility] [address] [place] [place] [address]/09/2024Doug HoyEssential Hypertension D05Zcugpfa[address] [place], [place] [address] [place] [place] [address]/08/2025Pamela CramerEssential Hypertension I10 and Chest discomfort R07.89[place] [address] [place] [address]/Doug HoyEncounter for immunotherapy Z29.8 ; Chest pain R07.9 and Internal derangement of knee M23.90Bu[place] [address] [place] [address]/Doug HoyPlantar fasciitis M72.2B[address] [address] 09/05/2024Doug HoyEssential Hypertension I10 ; Over weight E66.3 ; Hepatitis C B19.20 and Eczema L30.9 Assessments Encounter Date Diagnosis (ICD Code) Assessment Notes Treatment Notes Treatment Clinical Notes Section Notes 09/05/2024 Essential Hypertension (ICD-10 - I10) 09/05/2024Over weight (ICD-10 - E66.3)09/23/2024Essential Hypertension (ICD-10 - I10)10/25/2024Essential Hypertension (ICD-10 - I10)10/25/2024hest discomfort (ICD-10 - R07.89) EKG stress test to ER for eval EKG here possible [place] 11/07/2024Encounter for immunotherapy (ICD-10 - Z29.8)11/07/2024hest pain (ICD- 10 - R07.9)nbeeds referrla to Lyyrkrkzhd33/23/2025Plantar fasciitis (ICD-10 - M72.2)08/23/2024Essential Hypertension (ICD-10 - I10)09/23/2024Essential Hypertension (ICD-10 - I10)10/26/2024Essential Hypertension (ICD-10 - I10) 11/10/2024Essential Hypertension (ICD-10 - I10)11/07/2024Internal derangement of knee (ICD-10 - M23.90)09/05/2024Hepatitis C (ICD-10 - B19.20)09/05/2024Eczema (ICD-10 - L30.9) Plan Of Treatment Pending [...] End Date [place] [address] [place] [address] [id number] Sita Richter - patient is the insured[facility] SUPPLEMENTPO B[address] [address] [place], [place] [id number], [employer] - patient is the insured Medical (General) History Medical History History ICD Code Diverticulosis K57.90 Gastritis K29.70 Over weight E66.3 Nevus D22.9 Pruritus L29.9 History of hepatitis Z86.19 Eczema L30.9 Hepatitis C B19.20 Essential Hypertension I10 Surgical History Surgery Date(Month/Year) right hand surgery
[2025-03-02 11:18] LABS: Anion Gap 8.3; Blood Urea Nitrogen 27.0 mg/dL (7.0-18.0); Calcium 9.2 mg/dL (8.5-10.1); Carbon Dioxide 29.9 mmol/L (21.0-32.0); Chloride 103 mmol/L (98-107); Estimated GFR (African America >60 (>=60 mL/min/1.73m^2); Estimated GFR (Non-African Ame 53 (>=60 mL/min/1.73m^2); Glucose 104 mg/dL (74-106); Potassium 4.2 mmol/L (3.5-5.1); Sodium 137 mmol/L (136-145)
== END 2025-03-02 09:54 | disposition home or self-care (01) ==
LOC: LAB 09:55
PROVIDERS: PCP Family Medicine; Visit Provider Internal Medicine Cardiovascular Disease
DX: I10 Essential (primary) hypertension (principal)
CPT/HCPCS: 36415; 80048